=== PATIENT | female | born 1950 | race Caucasian/White ===

== ENCOUNTER 2019-04-20 18:08 | Inpatient (IN) | payer MEDICARE, SELFPAY ==
[2019-04-20] VITALS (45 sets, daily range): BP systolic 106–254; BP diastolic 49–134; PULSE 57–94; RESP 10–28; TEMP 36.7; O2SAT 91–96; BMI 38.8
--- NOTE | 2019-04-20 18:44 | ECG_ITS ---
Measurements Intervals [place] Rate: 65 P: 93 IN: 187 QRS: 11 QRSD: 104 T: 43 QT: 441 QTc: [address] DEPRESSION [0.025+ mV ST DEPRESSION] Compared to ECG 03/10/2019 01:16:40 ST (T wave) deviation now present Sinus bradycardia no longer present T-wave abnormality no longer present Electronically Signed On 04-21-2019 22:14:47 STAND GRINDER by Stephany Saldivar M.D. [id number]
--- NOTE | 2019-04-20 18:53 | ED_ITS ---
Entered by Adilene Flores, acting as scribe for Martha Padilla HPI - General Adult General: Chief complaint: General Medical Stated complaint: high bp Time Seen by Provider: 04/20/19 18:43 Source: patient Mode of arrival: ambulatory Limitations: no limitations History of Present Illness: HPI narrative: 68 yo Female presents to ED with complaint of elevated blood pressure. Pt states that she has a headache and checked her blood pressure and had a systolic pressure of 220 so she came to the ER to be checked out. Pt reports to the nurse that she has been out of her clonidine for a few days. MD complaint: Elevated blood pressure Onset (ago): day(s) Location: head Radiation: non-radiation Severity scale (1-10): 5 Quality: constant Pain Consistency: constant Relieving factors: none Exacerbating factors: none Associated symptoms: Reports headache(s); Deny chest pain, confusion, diaphoresis, dyspnea, malaise, nausea, rash, palpitations, syncope or vomiting Review of Systems General: Reports: other (negative unless marked) Const: Denies: fever, chills, body aches, fatigue, malaise or diaphoresis Eyes: Denies: change in vision or blurry vision ENMT: Denies: throat pain, painful swallowing, hoarseness, ear pain, ear discharge, Change in hearing or nasal discharge Card: Denies: chest pain, palpitations, irregular heart rhythm, syncope, pre- syncope, shortness of breath on exertion or shortness of breath when lying down Resp: Denies: shortness of breath, productive cough, non-productive cough, wheezing, coughing up blood or chest congestion GI: Denies: abdominal pain, nausea, vomiting, vomiting blood, coffee grounds in vomit, diarrhea, constipation, cramping, blood in stool or black tarry stool : Denies: flank pain, painful urination, urinary frequency, urinary urgency, decreased urine ouput, urinary incontinence or blood in urine Musc: Denies: neck pain, back pain, extremity pain, extremity swelling, joint pain, joint swelling, joint warmth or joint stiffness Skin/Breast: Denies: rash, skin tenderness or yellow skin Neuro: Reports: headache; Denies: numbness in extremities, weakness in extremities, changes in sensation, lack of coordination, difficulty walking, dizziness, vertigo or confusion Endo: Denies: excessive thirst, tired all the time, cold intolerance, excessive sweating, flushing or hot flashes Casa/Lymph: Denies: easy bruising, easy bleeding, petechiae or enlarged lymph nodes All/Imm: Denies: hives, throat swelling, tongue swelling, facial swelling or acute wheezing PFSH ED PFSH: Statuses (acute, chronic, etc) shown below reflect problem list status as previously entered and may not be historically accurate Social History Smoking and tobacco status: former smoker Physical Exam Const: COMMON NORMALS: no apparent distress, oriented x3, no limitations, healthy appearing and well nourished EXAM LIMITATIONS: no altered mental status GENERAL APPEARANCE: cooperative, well kempt and well developed ORIENTATION/CONSCIOUSNESS: Yes awake HENMT: COMMON NORMALS: normocephalic, head/scalp atraumatic, hearing grossly normal bilaterally, external ears normal, EAC's normal, external nose normal and moist oral mucous membranes HEAD & SCALP: normal to inspection, normocephalic and atraumatic FACE & SINUS: normal facial exam and face symmetric NOSE: external nose normal and nares normal EXTERNAL EAR: Yes external ears normal EXTERNAL AUDITORY CANAL: EAC's normal MOUTH: oral and palatal mucosa normal and tongue normal Eye: COMMON NORMALS: PERRL, EOMs intact bilaterally, conjunctivae normal and no scleral icterus GENERAL EYE: normal appearance of both eyes and normal light reflex CONJUNCTIVA: Yes conjunctivae normal SCLERA: sclerae normal CORNEA: Yes corneas normal PUPIL: Yes PERRL DIRECT OPHTHALMOSCOPY: Yes normal light reflex Neck/C-Spine: COMMON NORMALS: full ROM, no lymphadenopathy, supple, no meningeal signs and no JVD GENERAL: Yes normal visual inspection and Yes trachea midline CERVICAL SPINE: Yes cervical ROM normal Chest: COMMONS NORMALS: inspection of chest normal and palpation of chest normal Resp: COMMON NORMALS: normal respiratory effort, no retractions, no use of accessory muscles and clear to auscultation bilaterally EFFORT & INSPECTION: Yes able to speak in complete sentences AUSCULTATION: clear to auscultation bilaterally Cardio: COMMON NORMALS: no JVD, regular rate, regular rhythm, S1 normal heart sound, S2 normal heart sound, no gallops, no clicks, no murmurs and no rub JUGULAR VENOUS DISTENTION: no JVD RATE: regular rate RHYTHM: regular rhythm HEART SOUNDS: S1 normal and S2 normal GI: COMMON NORMALS: soft to palpation, non-tender, no hepatosplenomegaly and no masses INSPECTION: Yes normal to inspection PALPATION: Yes soft and Yes no hepatosplenomegaly : COMMON NORMALS: Yes no CVA tenderness BLADDER/KIDNEY EXAM: Yes no CVA tenderness Back/Pelvis: COMMON NORMALS: no CVA tenderness, thoracic and lumbar spine normal to inspection, no thoracic nor lumbar tenderness and thoraco-lumbar ROM normal Extremity: COMMON NORMALS: normal to inspection, full ROM, normal capillary refill, no joint enlargement, no clubbing, cyanosis or edema and no calf tenderness Neuro: COMMON NORMALS: oriented x3, CN's II-XII intact bilaterally, moves all extremities, no focal motor deficits and no sensory deficits noted MENINGEAL SIGNS: Yes no meningeal signs Psych: COMMON NORMALS: mental status grossly normal, thought process normal, cooperative, affect normal, speech normal and activity/motor behavior normal APPEARANCE: Yes well kempt SPEECH: Yes normal speech THOUGHT PROCESS: normal thought process Skin: COMMON NORMALS: no rashes or lesions noted, skin turgor normal, no jaundice, no petechiae and no mottling GENERAL SKIN EXAM: no rashes or lesions noted and turgor normal Course Vital Signs: Vital signs: Vital Signs Temperature 98.1 F 04/20/19 18:34 Pulse Rate 62 04/20/19 22:40 Respiratory Rate 19 H 04/20/19 22:40 Blood Pressure 144/61 04/20/19 22:40 Pulse Oximetry 92 04/20/19 22:40 MDM - General Adult MDM Narrative: Medical decision making narrative: The patient presents with hypertensive emergency. Her blood pressure has gotten as high as 264 systolic and as high as 170 diastolic. Currently we are maxed out on a Cardene drip. The patient is going to be admitted to the ICU. Dr. Travis is consulting Dr. Roman and he is advised me if we do not have fenoldopam, and we do not, he recommends giving clonidine 0.2 mg every 6 hours. Patient is asymptomatic at this time her headache is better. She has no chest pain or shortness of breath. Lab Data: Attestation: I reviewed the patient's lab results. Labs: Lab Results 04/20/19 04/20/19 04/20/19 Range/Units 18:05 18:05 18:05 WBC 9.8 (4.0-10.0) 10^3/ uL RBC 5.21 (4.1-5.3) 10^6/u L Hgb 11.9 (11.5-15.3) g/dL Hct 40.2 (37.0-47.0) % MCV 77.2 L (81-99) fL MCH 22.8 L (28.0-34.0) pg MCHC 29.6 L (30.0-36.0) g/dL RDW 22.0 H (12.1-15.1) % Plt Count 252 (130-400) 10^3/c mm MPV 10.4 (7.4-10.4) fL Neut % (Auto) 59.8 % Lymph % (Auto) 25.1 % Greenlee % (Auto) 6.5 % Eos % (Auto) 7.3 % Baso % (Auto) 0.6 % Neut # (Auto) 5.9 (1.8-7.7) 10^3/u L Lymph # (Auto) 2.5 (0.8-4.8) 10^3/u L Greenlee # (Auto) 0.6 (0.2-0.9) 10^3/u L Eos # (Auto) 0.7 (0.0-0.8) 10^3/u L Baso # (Auto) 0.1 (0.0-0.1) 10^3/u L Nucleated RBC % (a uto) 0 % Nucleated RBCs # 0.0 /100WBC Sodium 136 (136-145) mmol/L Potassium 4.1 (3.5-5.1) mmol/L Chloride 96 L (98-107) mmol/L Carbon Dioxide 27 (22-29) mmol/L Anion Gap 17.1 (5-19) BUN 13 (8-23) mg/dL Creatinine 0.8 (0.5-0.9) mg/dL GFR Calculation 71.1 L (90-130) mL/min Glucose 200 H (65-115) mg/dL Calcium 9.9 (8.5-10.5) mg/dL Magnesium 1.8 (1.7-2.3) mg/dL Total Bilirubin 0.3 (0.15-1.2) mg/dL AST 20 (0-32) U/L ALT 22 (0-33) U/L Alkaline Phosphata se 109 H (35-105) IU/L Troponin T Baselin e 14 H (0-10) ng/mL NT-Pro-B Natriuret Pep 339 H (0-125) pg/mL Total Protein 7.7 (6.6-8.7) g/dL Albumin 4.3 (3.5-5.2) g/dL Globulin 3.4 (1.3-4.6) g/dL Imaging Data^: CT Head: Radiologist's impression: [place] [address] CT Scan Report Signed Patient: Marifer Loza #: [id number] : 1950Acct#:[id number] Age/Sex: 68 / FADM Date: 04/20/19 Loc: ERRoom/Bed: Attending Dr: Ordering Provider/Ordering MD: Martha Padilla DO Date of Service: 04/20/19 Procedure(s): CT head wo con* [id number] Accession Number(s): [id number] Report Number: [id number] PROCEDURE INFORMATION: Exam: CT Head Without Contrast Exam date and time: 04/20/2019 7:21 PM Age: 68 years old Clinical indication: Pain; Additional info: Colón/ams TECHNIQUE: Imaging protocol: Computed tomography of the head without contrast. Total DLP: 885.23 mGy-cm Radiation optimization: All CT scans at this facility use at least one of these dose optimization techniques: automated exposure control; mA and/or kV adjustment per patient size (includes targeted exams where dose is matched to clinical indication); or iterative reconstruction. COMPARISON: No relevant prior studies available. FINDINGS: Brain: No CT evidence for acute ischemia, mass or hemorrhage. Ventricles: Normal. No ventriculomegaly. Bones/joints: Unremarkable. No acute fracture. Sinuses: Visualized sinuses are unremarkable. No fluid levels. Mastoid air cells: Small fluid in both mastoid sinuses. However the middle ear spaces are clear. Soft tissues: Unremarkable. CT/CT head wo con* [id number] IMPRESSION: 1. No acute intracranial findings. 2. Fluid in the mastoid sinuses Radiation Dose CTDIVOL = (mGy): DLP = 885.23 (mGy-cm) Dictated By:Pablo Ferrer MD Signed By:Pablo Ferrerigned Date/Time:04/20/192023 DD/ 21 EKG Data^: EKG 1: Attestation: I personally reviewed and interpreted this EKG as follows: EKG interpretation date: 04/20/19 EKG interpretation time: 19:02 Interpretation: Normal sinus rhythm at 76 beats a minute, normal axis, nonspecific ST-T wave changes. Computer generated interpretation: Head CT 04/20/19 19:01 IMPRESSION: 1. No acute intracranial findings. 2. Fluid in the mastoid sinuses Radiation Dose CTDIVOL = (mGy): DLP = 885.23 (mGy-cm) EKG 2: EKG interpretation date: 04/20/19 EKG interpretation time: 20:54 Interpretation: Normal sinus rhythm at 65 beats a minute, nonspecific ST-T wave changes, no acute findings, unchanged from previous. Computer generated interpretation: Head CT 04/20/19 19:01 IMPRESSION: 1. No acute intracranial findings. 2. Fluid in the mastoid sinuses Radiation Dose CTDIVOL = (mGy): DLP = 885.23 (mGy-cm) Discharge Plan Discharge Patient Disposition: Admitted As Inpatient Admit Provider: Garry Travis Clinical Impression: Hypertensive emergency Condition: Stable Discharge Date/Time: 04/20/19 21:40 Coding Level of Care Code ED Chip Bin Conveyor Tender for Chg Fwd Exam Problem Focused The documentation recorded by the Sandra joyner Carmen, accurately reflects the service I personally performed and the decisions made by Randy lara Eli N Apr 20, 2019 18:08
[2019-04-20] MEDS: nitroglycerin 0.4 mg sublingual Tablet SUBLINGUAL (18:55)
--- NOTE | 2019-04-20 19:01 | CTR_ITS ---
PROCEDURE INFORMATION: Exam: CT Head Without Contrast Exam date and time: 04/20/2019 7:21 PM Age: 68 years old Clinical indication: Pain; Additional info: Colón/ams TECHNIQUE: Imaging protocol: Computed tomography of the head without contrast. Total DLP: 885.23 mGy-cm Radiation optimization: All CT scans at this facility use at least one of these dose optimization techniques: automated exposure control; mA and/or kV adjustment per patient size (includes targeted exams where dose is matched to clinical indication); or iterative reconstruction. COMPARISON: No relevant prior studies available. FINDINGS: Brain: No CT evidence for acute ischemia, mass or hemorrhage. Ventricles: Normal. No ventriculomegaly. Bones/joints: Unremarkable. No acute fracture. Sinuses: Visualized sinuses are unremarkable. No fluid levels. Mastoid air cells: Small fluid in both mastoid sinuses. However the middle ear spaces are clear. Soft tissues: Unremarkable. CT/CT head wo con* [id number] IMPRESSION: 1. No acute intracranial findings. 2. Fluid in the mastoid sinuses Radiation Dose CTDIVOL = (mGy): DLP = 885.23 (mGy-cm)
[2019-04-20] MEDS: labetalol 5 mg/mL SDV 20mL 20 MG IVP (19:09)
[2019-04-20 19:17] LABS: Basophils # 0.1 10^3/uL (0.0-0.1); Basophils % 0.6 %; Eosinophils # 0.7 10^3/uL (0.0-0.8); Eosinophils % 7.3 %; Hematocrit 40.2 % (37.0-47.0); Hemoglobin 11.9 g/dL (11.5-15.3); Lymphocytes # 2.5 10^3/uL (0.8-4.8); Lymphocytes % 25.1 %; Mean Corpuscular HGB Conc 29.6 g/dL (30.0-36.0); Mean Corpuscular Hemoglobin 22.8 pg (28.0-34.0); Mean Corpuscular Volume 77.2 fL (81-99); Mean Platelet Volume 10.4 fL (7.4-10.4); Monocytes # 0.6 10^3/uL (0.2-0.9); Monocytes % 6.5 %; Neutrophils # 5.9 10^3/uL (1.8-7.7); Neutrophils % 59.8 %; Nucleated Red Blood Cells % 0 %; Platelet Count 252 10^3/cmm (130-400); Red Blood Count 5.21 10^6/uL (4.1-5.3); White Blood Count 9.8 10^3/uL (4.0-10.0)
[2019-04-20 19:47] LABS: Troponin(5th) Baseline 14 ng/mL (0-10)
--- NOTE | 2019-04-20 19:52 | PC.NURSE ---
increased cardene drip to 7.5 ml/hr
[2019-04-20 19:55] LABS: Alanine Aminotransferase 22 U/L (0-33); Albumin Level 4.3 g/dL (3.5-5.2); Alkaline Phosphatase 109 IU/L (35-105); Anion Gap 17.1 (5-19); Aspartate Amino Transferase 20 U/L (0-32); Blood Urea Nitrogen 13 mg/dL (8-23); Calcium 9.9 mg/dL (8.5-10.5); Carbon Dioxide 27 mmol/L (22-29); Chloride 96 mmol/L (98-107); Globulin 3.4 g/dL (1.3-4.6); Glomerular Filtration Rate 71.1 mL/min (90-130); Glucose 200 mg/dL (65-115); Magnesium 1.8 mg/dL (1.7-2.3); NT Pro B Type Natriuretic Pept 339 pg/mL (0-125); Potassium 4.1 mmol/L (3.5-5.1); Sodium 136 mmol/L (136-145); Total Bilirubin 0.3 mg/dL (0.15-1.2); Total Protein 7.7 g/dL (6.6-8.7)
--- NOTE | 2019-04-20 20:25 | PC.NURSE ---
increased cardene to 10mg/hr at this time.
--- NOTE | 2019-04-20 20:41 | PC.NURSE ---
titrated to Cardene to 12.5mg/hr per verbal order from Dr. Padilla
--- NOTE | 2019-04-20 20:44 | ECG_ITS ---
Measurements Intervals [place] Rate: 76 P: 101 [place]: 191 QRS: 12 QRSD: 106 T: 68 QT: 376 QTc: [address] & T-WAVE ABNORMALITY Compared to ECG 03/10/2019 01:16:40 Sinus bradycardia no longer present T-wave abnormality still present Electronically Signed On 04-21-2019 22:18:00 STEP DOWN SPECIALIST by Stephany Saldivar M.D. [id number]
[2019-04-20] MEDS: cloNIDine 0.1 mg Tablet 0.2 MG PO (21:04)
[2019-04-20 21:12] LABS: Troponin 5 2HR 18.06 ng/mL (0-10); Troponin 5 2HR Delta 4.06 ABS# (0-10)
--- NOTE | 2019-04-20 21:27 | PC.NURSE ---
attempted to call report no one answered
--- NOTE | 2019-04-20 23:23 | PC.NURSE ---
2200 dr dillon at bedside orders to stop fluid , continue cardene, tylenol prn, cpap, and xanax placed. kem de la cruz.
[2019-04-20] MEDS: acetaminophen 500 mg Tablet 1000 MG PO (23:30)
--- NOTE | 2019-04-20 23:30 | PM.HP ---
Providers/Chief Complaint Admitting Physician: Garry Travis MD Primary Care Provider: Garry Travis MD Chief Complaint: high bp History of Present Illness Marifer Loza is a 68 year old female who presents to the emergency room due to elevated blood pressure. She ran out of her clonidine approximately 4 days ago. Blood pressures been increasingly getting high since then. She has been struggling with high blood pressure for the past couple of months. She is had her medications escalated significantly. Even with the clonidine her blood pressures have been 160s and 170s at home. It got over 200 which prompted her to come in. She has been having some significant headaches associated with it. No chest pain or shortness of breath. When she got to the ER she was found to have blood pressures in the 270s systolic. She was placed on a Cardene drip with persistent elevated pressures. Clonidine was started and her blood pressure subsequently improved. Patient is currently in the ICU. Current medications Zoloft 200 mg daily Amaryl 4 mg 1 tablet twice a day Metformin thousand milligrams 1 tablet twice a day Atenolol 50 mg 1 tablet twice a day Enalapril/hydrochlorothiazide 10/25 1 tablet twice a day Lipitor 40 mg 1 tablet once a day Alprazolam 0.25 mg 1 tablet at night Detrol 2 mg 1 tablet twice a day Past medical history: Hypertension, hyperlipidemia, seasonal allergies, incontinence. Angiogram in 2004 showed very minimal plaques. History of COPD, obstructive sleep apnea, diabetes mellitus type 2. Past surgical history gallbladder, lap band in July 2008 Family history, Mom dad of coronary disease age 44. Maternal aunt had breast cancer. Dad at age 89 he had coronary disease and peripheral vascular disease and diabetes. Social history She goes by Marifer. She lives in [place]. Her recently. She works for the [employer] in [place]. 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 Quit smoking in 2000. [id number] smoking history prior to this. No alcohol use. Review of Systems Narrative: General: No chronic fevers or chronic weight changes. HEENT: No acute changes in vision. No acute hearing loss. No new difficulty swallowing. Heart: No new chest pain or recent issues with coronary disease. Lungs: No history of TB. No chronic lung disease. GI: No history of GI bleeding. No hepatitis. No chronic nausea or vomitting. Renal: No dysuria or frequency. No hematuria Neuro: No acute neurological changes or deficits. Musculoskeletal: No acutely worsening joint pain or swelling. Medications/Allergies Home Medications Medication Instructions Recorded Confirmed Last Taken Type albuterol sulfate 04/20/19 Unknown History carvedilol 04/20/19 04/20/19 Unknown History Allergies Allergy/AdvReac Type Severity Reaction Status Date / Time codeine Allergy ADR-Confusi Verified 04/20/19 18:43 on PFSH Acute PFSH: Statuses (acute, chronic, etc) shown below reflect problem list status as previously entered and may not be historically accurate Social History Smoking and tobacco status: former smoker Vitals/I&O/Wt Last Vital Signs Temp 98.1 F 04/20/19 18:34 Pulse 62 04/20/19 22:40 Resp 19 H 04/20/19 22:40 BP 144/61 04/20/19 22:40 Pulse Ox 92 04/20/19 22:40 04/20/19 04/20/19 04/21/19 14:59 22:59 06:59 Intake Total 750.000 / 952.500 202.5 / 952.500 Balance 750.000 / 952.500 202.5 / 952.500 Weight last 48 hrs Weight 263 lb Physical Exam Narrative: EXAM NARRATIVE: General: No acute distress, Alert. Well nourished. HEENT: PERRLA, EOMI. vision grossly normal. Throat clear. Neck: supple, no adenopathy. Heart: Regular rate and rhythm. No murmurs, rubs or gallops. Normal capillary refill. Lungs: Clear to auscultation. No wheezes, rhonchi or rales. Abdomen: Positive bowel sounds. Non-tender, non-distended. No hepatosplenomegaly. No gaurding. Extremities: No clubbing, cyanosis, or edema. Negative Gris's. Data : 04/21/19 04:59 04/21/19 04:59 A&P Assessment and plan (1) Hypertensive emergency: This is obviously her primary concern since his hospitalization. Patient was being scheduled for an outpatient CTA of her renal arteries. We will proceed with this in the morning. She seems to be responding well to clonidine at this time. We will resume her home medications in the morning. Cardiology has been consulted due to the difficulty of controlling her blood pressures. Appreciate their input. Status: Acute Code(s): I16.1 - Hypertensive emergency (2) Diabetes mellitus type 2 in nonobese: Status: Acute Code(s): E11.9 - Type 2 diabetes mellitus without complications (3) COPD (chronic obstructive pulmonary disease): Status: Acute Code(s): J44.9 - Chronic obstructive pulmonary disease, unspecified (4) Hyperlipidemia: Status: Acute Code(s): E78.5 - Hyperlipidemia, unspecified (5) Obstructive sleep apnea: Status: Acute Code(s): G47.33 - Obstructive sleep apnea (adult) (pediatric) Attestations Medical Necessity Statement*: This is a 68-year-old female with hypertensive emergency requiring continued inpatient monitoring and treatment. Coding Level of Care Code Acute Wool Presser for [facility] Fwd Diagnoses Hypertensive emergency I16.1 Diabetes mellitus type 2 in nonobese E11.9 COPD (chronic obstructive pulmonary disease) J44.9 Hyperlipidemia E78.5 Obstructive sleep apnea G47.33
--- NOTE | 2019-04-20 23:38 | PC.NURSE ---
tylenol given for back pain per may. kem de la cruz.
[2019-04-21] VITALS (132 sets, daily range): BP systolic 114–196; BP diastolic 38–122; PULSE 53–79; RESP 12–29; TEMP 36.2–36.9; O2SAT 88–95
--- NOTE | 2019-04-21 00:44 | ECG_ITS ---
Measurements Intervals [place] Rate: 58 P: 80 [place]: 185 QRS: 44 QRSD: 104 T: 36 QT: 475 QTc: 467 SINUS BRADYCARDIA NONSPECIFIC T-WAVE ABNORMALITY PROLONGED QT INTERVAL Compared to ECG 03/10/2019 01:16:40 Prolonged QT interval now present T-wave abnormality still present Electronically Signed On 04-21-2019 22:18:23 WOOD CARVER by Stephany Saldivar M.D. [id number]
[2019-04-21 01:14] LABS: Troponin 5 6HR 16.01 ng/L (0-10); Troponin 5 6HR Delta 2.01 ng/L (0-12)
[2019-04-21 05:18] LABS: Basophils # 0.1 10^3/uL (0.0-0.1); Basophils % 0.9 %; Eosinophils # 0.5 10^3/uL (0.0-0.8); Eosinophils % 6.6 %; Hemoglobin 10.9 g/dL (11.5-15.3); Lymphocytes # 2.1 10^3/uL (0.8-4.8); Lymphocytes % 25.9 %; Mean Corpuscular HGB Conc 29.5 g/dL (30.0-36.0); Mean Corpuscular Hemoglobin 22.6 pg (28.0-34.0); Mean Corpuscular Volume 76.8 fL (81-99); Mean Platelet Volume 10.2 fL (7.4-10.4); Monocytes # 0.6 10^3/uL (0.2-0.9); Monocytes % 7.1 %; Neutrophils # 4.7 10^3/uL (1.8-7.7); Neutrophils % 59.2 %; Nucleated Red Blood Cells % 0 %; Platelet Count 218 10^3/cmm (130-400); Red Blood Count 4.82 10^6/uL (4.1-5.3); Red Cell Distribution Width 21.9 % (12.1-15.1); White Blood Count 7.9 10^3/uL (4.0-10.0)
[2019-04-21] MEDS: cloNIDine 0.1 mg Tablet 0.2 MG PO (05:21)
[2019-04-21 05:29] LABS: Anion Gap 15.7 (5-19); Blood Urea Nitrogen 14 mg/dL (8-23); Calcium 9.1 mg/dL (8.5-10.5); Carbon Dioxide 29 mmol/L (22-29); Chloride 98 mmol/L (98-107); Glomerular Filtration Rate 99.1 mL/min (90-130); Glucose 190 mg/dL (65-115); Osmolality Calculated 289 mOsm/kg (285-295); Potassium 3.7 mmol/L (3.5-5.1); Sodium 139 mmol/L (136-145)
--- NOTE | 2019-04-21 06:18 | CT_ITS ---
WS: [id number] CT ANGIOGRAPHY ABDOMEN AORTA HISTORY: Renal artery CTA for malignant Hypertension TECHNIQUE: CT angiogram is performed during IV injection. Reformation images reviewed. All CT scans a [facility] use at least one of these dose optimization techniques: automated exposure co ntrol; mA and/or kV adjustment per patient size (includes targeted exams where dose is matched to cli nical indication); or iterative reconstruction. CONTRAST: Omnipaque 350; 95 mL IV. DLP: 1104.33 mGy.cm COMPARISON: None available. Lung bases are clear. Prior gastric banding procedure. Small hiatal hernia. Mild hepatic steatosis and hepatomegaly. Liver measures greater than 17 cm in length. Prior cholecyst ectomy. Normal pancreas and adrenal glands. Both kidneys are enhancing normally. No atrophy, calcifications or obstruction. Both ureters are norm al caliber. Abdominal aorta: Moderate atherosclerosis throughout the aorta. There is calcified plaque and intimal thickening. Distal aorta is narrowed measuring 7 mm in diameter. Moderate calcified plaque continues into the proximal common iliac arteries. Moderate amount of plaque at the origins of the renal arteries. Approximately 26% stenosis at the ty[place] gin of the LEFT renal artery. Moderate amount of plaque at the origin of the RIGHT renal artery but n o significant stenosis. There is a moderate stenosis at the origin of the SMA, stenosis greater than 80%. There is an additio nal focal calcification approximately 5 cm distal to the origin of approximately 50%. Moderate degenerative disc disease at L5-S1. CT/CT angio abdomen 28016 IMPRESSION: 1. Moderate stenosis distal abdominal aorta with a maximum diameter 7 mm. 2. No significant renal artery stenosis. Calcified plaque at the origins witho ut narrowing. 3. High-grade stenosis origin of the SMA and an additional moderate stenosis a bout 5 cm from the origin. 4. Prior cholecystectomy and LEFT gastric banding. 5. Hepatomegaly and hepatic steatosis.
--- NOTE | 2019-04-21 09:04 | P.CONIM_ITS ---
Providers/Reason For Consult Consulting Physican/Specialty*: Cardiology Reason for Consult*: Hypertensive urgency Attending Physician: Garry Travis MD Primary Care Provider: Garry Travis MD History of Present Illness History of Present Illness Marifer Loza is a 68 year old female Past medical history significant for Malignant hypertension COPD, obstructive sleep apnea, Diabetes mellitus Presented with Systolic blood pressure on 220 With headaches. I was consulted by Dr. Travis and our ER physician Dr. Bonilla to assist in her care. Patient apparently ran out of clonidine as well and was noticing escalation of the blood pressure. She was given labetalol he did not bring her blood pressure down. She was started on Cardene, Since fenoldapam was not available for decided to add back clonidine in order to control her blood pressure. This morning I saw the patient in ICU she was on Cardene drip and her blood pressure was in the range of 140s to 140 systolic. Currently she denies chest pain because in any part of the body PND orthopnea. Review of Systems General: Reports: other (negative unless marked) Narrative: General: No chronic fevers or chronic weight changes. HEENT: No acute changes in vision. No acute hearing loss. No new difficulty swallowing. Heart: No new chest pain or recent issues with coronary disease. Lungs: No history of TB. No chronic lung disease. GI: No history of GI bleeding. No hepatitis. No chronic nausea or vomitting. Renal: No dysuria or frequency. No hematuria Neuro: No acute neurological changes or deficits. Musculoskeletal: No acutely worsening joint pain or swelling. Const: Denies: fever, chills, body aches, fatigue, malaise or diaphoresis Eyes: Denies: change in vision or blurry vision ENMT: Denies: throat pain, painful swallowing, hoarseness, ear pain, ear discharge, change in hearing or nasal discharge Card: Denies: chest pain, palpitations, irregular heart rhythm, syncope, pre- syncope, shortness of breath on exertion or shortness of breath when lying down Resp: Denies: shortness of breath, productive cough, non-productive cough, wheezing, coughing up blood or chest congestion GI: Denies: abdominal pain, nausea, vomiting, vomiting blood, coffee grounds in vomit, diarrhea, constipation, cramping, blood in stool or black tarry stool : Denies: flank pain, painful urination, urinary frequency, urinary urgency, decreased urine ouput, urinary incontinence or blood in urine Musc: Denies: neck pain, back pain, extremity pain, extremity swelling, joint pain, joint swelling, joint warmth or joint stiffness Skin/Breast: Denies: rash, skin tenderness or yellow skin Neuro: Reports: headache; Denies: numbness in extremities, weakness in extremities, changes in sensation, lack of coordination, difficulty walking, dizziness, vertigo or confusion Endo: Denies: excessive thirst, tired all the time, cold intolerance, excessive sweating, flushing or hot flashes Casa/Lymph: Denies: easy bruising, easy bleeding, petechiae or enlarged lymph nodes All/Imm: Denies: hives, throat swelling, tongue swelling, facial swelling or acute wheezing Meds/Allergies Home Medications and Allergies Home Medications Medication Instructions Recorded Confirmed Type albuterol sulfate 04/20/19 History carvedilol 04/20/19 04/20/19 History alprazolam PO BEDTIME 04/21/19 History atorvastatin DAILY 04/21/19 History carvedilol 25 mg PO BID 04/21/19 04/21/19 History enalapril maleate 10 BID 04/21/19 History fluconazole mg 04/21/19 History fluticasone propion-salmeterol INHALATION 04/21/19 04/21/19 History glimepiride mg 04/21/19 04/21/19 History hydrochlorothiazide 04/21/19 04/21/19 History isosorbide mononitrate mg PO 04/21/19 04/21/19 History lisinopril 04/21/19 04/21/19 History nitroglycerin mg 04/21/19 04/21/19 History omeprazole 04/21/19 04/21/19 History sertraline mg 04/21/19 04/21/19 History Allergies Allergy/AdvReac Type Severity Reaction Status Date / Time codeine Allergy ADR-Confusi Verified 04/20/19 18:43 on Current Medications Current Medications Generic Name Dose Route Start Last Admin Trade Name Freq PRN Reason Stop Dose Admin Acetaminophen 1,000 mg 04/20/19 23:10 04/20/19 23:30 Tylenol PO 1,000 mg Q6H PRN Administration MILD PAIN OR INCREASE TEMP Clonidine HCl 0.2 mg 04/20/19 22:15 04/21/19 05:21 Catapres PO 0.2 mg Q6H BRIELLE Administration Nicardipine HCl 25 mg/ Sodium 250 mls @ 0 mls/hr 04/20/19 19:00 04/21/19 00:42 Chloride IV 4 mg/hr .Q0M BRIELLE 40 mls/hr Administration Protocol Per Protocol PFSH Acute PFSH: Statuses (acute, chronic, etc) shown below reflect problem list status as previously entered and may not be historically accurate Medical History (Updated 04/21/19 @ 20:02 by Stephany Saldivar MD) COPD (chronic obstructive pulmonary disease) (Acute) Diabetes mellitus type 2 in nonobese (Acute) Hyperlipidemia (Acute) Obstructive sleep apnea (Acute) Social History Smoking and tobacco status: former smoker Vitals/I&O/Wt Last Vital Signs Temp 97.1 F L 04/21/19 02:55 Pulse 62 04/21/19 07:46 Resp 16 04/21/19 06:25 BP 158/82 04/21/19 06:25 Pulse Ox 93 04/21/19 07:46 04/20/19 04/21/19 04/21/19 22:59 06:59 14:59 Intake Total 750.000 / 750.000 250.0 / 1000.000 240 / 240 Balance 750.000 / 750.000 250.0 / 1000.000 240 / 240 Weight last 48 hrs Weight 263 lb Physical Exam Narrative: EXAM NARRATIVE: GENERAL: Patient is alert, awake and oriented x3. NECK: No jugular vein distension. HEENT: No cyanosis. No icterus. No pallor. HEART: Regular S1 and S2. No murmur, rub or gallop. LUNGS: Clear to auscultate bilaterally. ABDOMEN: Soft, nontender and nondistended. Positive bowel sounds. No guarding, rebound or tenderness. CENTRAL NERVOUS SYSTEM: Grossly nonfocal. EXTREMITIES: Lower extremities without edema bilaterally. A&P Assessment and plan (1) Hypertensive urgency, malignant: Patient has chronic history of malignant uncontrolled hypertension, Most likely she presented this time secondary to rebound episode . She was started back on clonidine I will switch her from propranolol to carvedilol and lisinopril to losartan. We will titrate the medicine. Secondary causes for hypertension will be investigated such as renal artery stenosis. Uncontrolled obstructive sleep apnea could also be a contributing factor to it Status: Acute Code(s): I16.0 - Hypertensive urgency (2) Hyperlipidemia: Continues to Status: Acute Code(s): E78.5 - Hyperlipidemia, unspecified (3) Obstructive sleep apnea: May need to be investigated for titration Status: Acute Code(s): G47.33 - Obstructive sleep apnea (adult) (pediatric) (4) Hypertensive emergency: Status: Acute Code(s): I16.1 - Hypertensive emergency Consult Attestations Medical Necessity Statement: Requires continuation hospitalization for above defined care. Coding Level of Care Code Acute Auth Specialist for Chg Fwd History Expanded Problem Focused Exam Expanded Problem Focused Medical Decision Making Moderate Complexity Diagnoses Hypertensive urgency, malignant I16.0 Hyperlipidemia E78.5 Obstructive sleep apnea G47.33 Hypertensive emergency I16.1
--- NOTE | 2019-04-21 09:15 | PC.NURSE ---
Dr Saldivar assessing pt. Making BP med changes.
--- NOTE | 2019-04-21 10:10 | PC.NURSE ---
Sample Tester called to ask when Dr Saldivar is expected to be free. Informed Christopher of BP med changes and pharmacy flagging meds. Clarification needed prior to administering meds. Christopher stated Dr Saldivar should be finished soon.
--- NOTE | 2019-04-21 10:30 | PC.NURSE ---
Pt pleasantly refuses Zoloft. States med makes her sleepy and she will take it this evening. Will notify physician.
--- NOTE | 2019-04-21 10:32 | PC.NURSE ---
Addendum entered by Carolina Cameron RN 04/21/19 10:34: Note timed for 0950. Original Note: Pharmacy flagged meds. Called Dr Saldivar's cell to inform and clarify orders. RT answered. Will hold meds until he returns call. Advised 30-60 minutes.
[2019-04-21] MEDS: losartan 50 mg Tablet PO ×2 (11:03→17:23)
[2019-04-21] MEDS: carvedilol 6.25 mg Tablet PO ×2 (11:04→17:23)
[2019-04-21] MEDS: iohexol 350 mg/mL 100 mL Btl 95 ML IV (11:43)
--- NOTE | 2019-04-21 12:07 | PC.NURSE ---
Cardine gtt off per order.
--- NOTE | 2019-04-21 12:13 | PC.NURSE ---
Pt c/o itching immediately following CT contrast. Requested Benadryl. Dr Travis phoned for an update immediately upon our return to ICU. Ordered Benadryl. In the ten minutes it took for pharmacy to load and retrieve med, pt stated itching had relieved and no longer needed med. Med wasted in Pyxis.
--- NOTE | 2019-04-21 14:32 | P.PN_ITS ---
Subjective Subjective: Interval history: Patient seems to be doing quite a bit better. She had some medication adjustments done by Dr. Roman. Blood pressures been down down in the 130s however she spikes up to the 170s when she gets up. She has no chest pain. No fevers or chills. Still some headache but this seems to be improving some. Vitals/I&O/Wt Last Vital Signs Temp 97.1 F L 04/21/19 02:55 Pulse 62 04/21/19 07:46 Resp 16 04/21/19 06:25 BP 170/69 04/21/19 11:03 Pulse Ox 93 04/21/19 07:46 04/20/19 04/21/19 04/21/19 22:59 06:59 14:59 Intake Total 750.000 / 1000.000 250.0 / 1000.000 240 / 240 Balance 750.000 / 1000.000 250.0 / 1000.000 240 / 240 Weight last 48 hrs Weight 263 lb Physical Exam Narrative: EXAM NARRATIVE: General: No acute distress, Alert. Well nourished. Heart: Regular rate and rhythm. No murmurs, rubs or gallops. Normal capillary refill. Lungs: Clear to auscultation. No wheezes, rhonchi or rales. Abdomen: Positive bowel sounds. Non-tender, non-distended. No hepatospl enomegaly. No gaurding. Extremities: No clubbing, cyanosis, or edema. Negative Gris's Data : 04/21/19 04:59 04/21/19 04:59 A&P Assessment and plan (1) Hypertensive emergency: Continue with clonidine and medication adjustments per cardiology. If blood pressures remain stable we will transfer to the floor later today. CTA has been performed but will follow up on results later today. Likely discharge tomorrow. Status: Acute Code(s): I16.1 - Hypertensive emergency (2) Diabetes mellitus type 2 in nonobese: Status: Acute Code(s): E11.9 - Type 2 diabetes mellitus without complications (3) Obstructive sleep apnea: Status: Acute Code(s): G47.33 - Obstructive sleep apnea (adult) (pediatric) Attestations Medical Necessity Statement*: Patient has hypertensive emergency requiring continued inpatient hospitalization and monitoring. Coding Level of Care Code Acute Mortising Machine Operator for [facility] Diagnoses Hypertensive emergency I16.1 Diabetes mellitus type 2 in nonobese E11.9 Obstructive sleep apnea G47.33
--- NOTE | 2019-04-21 16:10 | PC.CHAP ---
Pastoral Care Encounter/Spiritual Assessment Type of Contact [] Declined sex offender treatment professional visit [] Patient/Family/Request visit [] Outpatient visit [] Follow-up visit [] Physician referral [] Code/Alert [x] Routine visit [] Staff referral [] Actively dying [] Patient sleeping [] Family support [] [] Out of room [] Palliative care [] [] Receiving care in room [] Pre-surgical visit [] Trauma [] Long length of stay [] ICU visit [] Other: Relational/Emotional Strength [x] Patient feels connected with others/family/visitors/staff [] Distress [] Loneliness/isolation [] Abandonment Spirituality of Patient [] Person of Luciana [] Attends Denominational of their Luciana [] Believes in Prayer [] Reads Bible or Episcopal materials [] There are Spiritual issues to be addressed Senior Corporate Accountant Interventions x] Prayer [x] Active listening [x] Non-anxious presence [x] Spiritual/emotional support [] Crisis/trauma care [] Spiritual counseling [] Bereavement support [] Provided bereavement packet [] Provided Bible/devotional materials [] Provided toy/stuffed animal, coloring book to patient or family member [] Provided Communion [] Anointing/[place] [] Salvation [x] Completed spiritual assessment [] Other: Impact on Illness or Injury [] Angry [] Fearful [] Anxious [] Often cries [] Exhaustion [] Unable to work [] Unable to attend congregation [] Unable to walk/stand [] Unable to read [] Unable to drive [] Unable to eat/drink [] Unable to sleep [] Unable to be with family [] Patient intubated [x] Other: Retired person with only minimal restrictions as long as BP is controlled properly. Summary Pt's daughter present. Pt expecting to be transferred to [facility] for overnight observation and then go home Wednesday if nothing goes wrong with her BP. Pt stated she feels great. Pt has big smile and had very pleasant conversation with sex offender treatment professional. Senior Corporate Accountant Cristiane Corley Time spent with patient 14 minutes
[2019-04-21] MEDS: cloNIDine 0.1 mg Tablet PO (17:24)
[2019-04-21] MEDS: enoxaparin 40 mg/0.4 mL Syringe SUBCUT (17:24)
[2019-04-21] MEDS: glimepiride 2 mg Tablet 4 MG PO (17:24)
[2019-04-21 19:27] LABS: Glucose Point of Care 193 mg/dL (70-110)
[2019-04-21] MEDS: ALPRAZolam 0.25 mg Tablet PO (20:50)
[2019-04-21] MEDS: sertraline 100 mg Tablet 200 MG PO (20:50)
[2019-04-22] VITALS (89 sets, daily range): BP systolic 126–230; BP diastolic 36–112; PULSE 53–86; RESP 0–21; TEMP 36.6–36.9; O2SAT 87–96
[2019-04-22 05:15] LABS: Alanine Aminotransferase 17 U/L (0-33); Albumin Level 3.6 g/dL (3.5-5.2); Alkaline Phosphatase 85 IU/L (35-105); Anion Gap 13.9 (5-19); Aspartate Amino Transferase 21 U/L (0-32); Blood Urea Nitrogen 19 mg/dL (8-23); Calcium 9.5 mg/dL (8.5-10.5); Carbon Dioxide 30 mmol/L (22-29); Chloride 97 mmol/L (98-107); Globulin 3.2 g/dL (1.3-4.6); Glomerular Filtration Rate 71.1 mL/min (90-130); Glucose 204 mg/dL (65-115); Potassium 3.9 mmol/L (3.5-5.1); Sodium 137 mmol/L (136-145); Total Bilirubin 0.4 mg/dL (0.15-1.2); Total Protein 6.8 g/dL (6.6-8.7)
[2019-04-22 05:16] LABS: Basophils % 0.5 %; Eosinophils # 0.6 10^3/uL (0.0-0.8); Eosinophils % 7.3 %; Hematocrit 36.4 % (37.0-47.0); Hemoglobin 10.8 g/dL (11.5-15.3); Lymphocytes # 1.9 10^3/uL (0.8-4.8); Lymphocytes % 23.9 %; Mean Corpuscular HGB Conc 29.7 g/dL (30.0-36.0); Mean Corpuscular Hemoglobin 23.7 pg (28.0-34.0); Mean Corpuscular Volume 79.8 fL (81-99); Mean Platelet Volume 10.5 fL (7.4-10.4); Monocytes # 0.5 10^3/uL (0.2-0.9); Monocytes % 5.6 %; Neutrophils % 62.3 %; Nucleated Red Blood Cells % 0 %; Platelet Count 199 10^3/cmm (130-400); Red Blood Count 4.56 10^6/uL (4.1-5.3); Red Cell Distribution Width 22.1 % (12.1-15.1); White Blood Count 8.1 10^3/uL (4.0-10.0)
[2019-04-22 08:06] LABS: Glucose Point of Care 222 mg/dL (70-110)
[2019-04-22] MEDS: cloNIDine 0.1 mg Tablet PO ×3 (08:12→21:14)
[2019-04-22] MEDS: carvedilol 6.25 mg Tablet PO ×2 (08:12→18:35)
[2019-04-22] MEDS: losartan 50 mg Tablet PO ×5 (08:12→22:48)
[2019-04-22] MEDS: glimepiride 2 mg Tablet 4 MG PO ×2 (08:12→18:35)
--- NOTE | 2019-04-22 12:44 | PM.PN ---
Subjective Subjective: Interval history: Blood pressure is slowly improving. This morning it is 160 systolic. Overall she is feeling better. Vitals/I&O/Wt Last Vital Signs Temp 98.4 F 04/22/19 08:00 Pulse 65 04/22/19 08:31 Resp 17 04/22/19 08:00 BP 208/112 04/22/19 12:06 Pulse Ox 94 04/22/19 08:31 04/21/19 04/22/19 04/22/19 22:59 06:59 14:59 Intake Total 480 / 1090 240 / 1330 Output Total 750 / 750 300 / 1050 Balance -270 / 340 -60 / 280 Weight last 48 hrs Weight 263 lb Physical Exam Narrative: EXAM NARRATIVE: GENERAL: Patient is alert, awake and oriented x3. NECK: No jugular vein distension. HEENT: No cyanosis. No icterus. No pallor. HEART: Regular S1 and S2. No murmur, rub or gallop. LUNGS: Clear to auscultate bilaterally. ABDOMEN: Soft, nontender and nondistended. Positive bowel sounds. No guarding, rebound or tenderness. CENTRAL NERVOUS SYSTEM: Grossly nonfocal. EXTREMITIES: Lower extremities without edema bilaterally. Data : 04/22/19 04:11 04/22/19 04:11 A&P Assessment and plan (1) Hypertensive urgency, malignant: We will increase losartan 200 mg in the morning and 50 in the night. I will continue Coreg 6.125 and clonidine 0.1 mg twice daily. If blood pressure remains in the range of 150 systolic we will discharge home. She will be following up with Dr. Josefina Travis and my clinic. Status: Acute Code(s): I16.0 - Hypertensive urgency (2) Hyperlipidemia: Continues to Status: Acute Code(s): E78.5 - Hyperlipidemia, unspecified (3) Obstructive sleep apnea: She will be following up with Dr. Travis for sleep titration study Status: Acute Code(s): G47.33 - Obstructive sleep apnea (adult) (pediatric) (4) Hypertensive emergency: Status: Acute Code(s): I16.1 - Hypertensive emergency Attestations Medical Necessity Statement*: Patient require continuation hospitalization for above defined care Coding Level of Care Code Established Pt Acute Administrative Assistant Receptionist for Chg Fwd Patient Type Established History Expanded Problem Focused Exam Expanded Problem Focused Medical Decision Making Moderate Complexity Diagnoses Hypertensive urgency, malignant I16.0 Hyperlipidemia E78.5 Obstructive sleep apnea G47.33 Hypertensive emergency I16.1
[2019-04-22] MEDS: hyDRALAzine 20 mg/mL INJ 1 mL 25 MG IVP (16:25)
[2019-04-22 17:09] LABS: Glucose Point of Care 139 mg/dL (70-110)
[2019-04-22] MEDS: enoxaparin 40 mg/0.4 mL Syringe SUBCUT (18:37)
--- NOTE | 2019-04-22 18:47 | P.PN_ITS ---
Subjective Subjective: Interval history: H&P and hospital course are reviewed. Labs reviewed. CT results appreciated and discussed with patient. Patient continues to have mildly elevated blood pressure. Overnight patient's have blood pressure going up to 200 systolic. Cardene drip was stopped overnight. This morning patient's blood pressure is 170/100 mmHg. Patient denies of having any nausea, vomiting, dizziness, headache. Patient states her blood pressure continues to remain elevated tomorrow she would like to be transferred to [facility] in [place]. Vitals/I&O/Wt Last Vital Signs Temp 97.8 F 04/22/19 14:00 Pulse 63 04/22/19 18:30 Resp 16 04/22/19 18:30 BP 192/98 04/22/19 18:38 Pulse Ox 93 04/22/19 18:30 04/22/19 04/22/19 04/22/19 06:59 14:59 22:59 Intake Total 240 / 1330 220 / 220 Output Total 300 / 1050 Balance -60 / 280 220 / 220 Physical Exam Narrative: EXAM NARRATIVE: General: No acute distress, AO x3 HEENT: PERRLA, pupils bilaterally equal and reactive Chest: Normal vesicular breath sounds, no added sounds, equal good air entry bilaterally CVS: S1-S2 regular, no murmurs, no tachycardia, no gallops, no rubs Abdomen: Soft, nontender, no organomegaly, bowel sounds present Neuro: No focal deficits, no facial deformity, AO x3, power 5/5 in all limbs Data : 04/22/19 04:11 04/22/19 04:11 A&P Assessment and plan (1) Hypertensive urgency, malignant: Status: Acute Code(s): I16.0 - Hypertensive urgency (2) Obstructive sleep apnea: Status: Acute Code(s): G47.33 - Obstructive sleep apnea (adult) (pediatric) (3) Hyperlipidemia: Status: Acute Code(s): E78.5 - Hyperlipidemia, unspecified (4) COPD (chronic obstructive pulmonary disease): Status: Acute Code(s): J44.9 - Chronic obstructive pulmonary disease, unspecified (5) Diabetes mellitus type 2 in nonobese: Status: Acute Code(s): E11.9 - Type 2 diabetes mellitus without complications Additional A&P Information Hypertensive emergency: Patient is off Cardene drip now. Dr. Saldivar's recommendations appreciated. Continue with carvedilol at current dose as patient's heart rate has remained in 60s. We will increase losartan to 100 mg and morning and 50 mg at night as per Dr. Saldivar's recommendation.. Continue with clonidine at 0.1 mg twice daily. If blood pressures remain elevated can change clonidine to 3 times daily. We will continue with hydrochlorothiazide. If patient's blood pressure is controlled by the afternoon can plan for discharge. We will add hydralazine 10 mg IV every 6 hours as needed for elevated blood pressure more than 170 systolic. Type 2 diabetes mellitus: Continue her home medications of glimepiride for type 2 diabetes mellitus. Check fingersticks with meals and at bedtime. Continue with home dose of Zoloft. Full code Lovenox for DVT prophylaxis Cardiac diet Attestations Medical Necessity Statement*: Needs further hospitalization for management of hypertensive urgency Time Spent in Patient Care: Greater than 35 minutes Coding Level of Care Code Acute Prevention Coordinator for [facility] Fwd Diagnoses Hypertensive urgency, malignant I16.0 Obstructive sleep apnea G47.33 Hyperlipidemia E78.5 COPD (chronic obstructive pulmonary disease) J44.9 Diabetes mellitus type 2 in nonobese E11.9
[2019-04-22] MEDS: diphenhydrAMINE 50 mg Capsule PO (21:13)
[2019-04-22] MEDS: ALPRAZolam 0.25 mg Tablet PO (21:13)
[2019-04-22] MEDS: sertraline 100 mg Tablet 200 MG PO (21:14)
[2019-04-23] VITALS (13 sets, daily range): BP systolic 124–201; BP diastolic 65–95; PULSE 54–77; RESP 14–21; TEMP 36.4–36.7; O2SAT 93–98
[2019-04-23] MEDS: glimepiride 2 mg Tablet 4 MG PO (08:38)
[2019-04-23] MEDS: hydroCHLOROthiazide 25 mg Tablet PO (08:38)
[2019-04-23] MEDS: cloNIDine 0.1 mg Tablet PO (08:39)
[2019-04-23] MEDS: losartan 50 mg Tablet 100 MG PO (08:39)
[2019-04-23] MEDS: carvedilol 6.25 mg Tablet PO (08:39)
[2019-04-23 09:46] LABS: Basophils # 0.1 10^3/uL (0.0-0.1); Basophils % 0.8 %; Eosinophils # 0.5 10^3/uL (0.0-0.8); Eosinophils % 7.1 %; Hematocrit 40.8 % (37.0-47.0); Hemoglobin 11.9 g/dL (11.5-15.3); Lymphocytes # 1.3 10^3/uL (0.8-4.8); Lymphocytes % 20.5 %; Mean Corpuscular HGB Conc 29.2 g/dL (30.0-36.0); Mean Corpuscular Hemoglobin 22.9 pg (28.0-34.0); Mean Corpuscular Volume 78.5 fL (81-99); Mean Platelet Volume 10.6 fL (7.4-10.4); Monocytes # 0.4 10^3/uL (0.2-0.9); Monocytes % 5.4 %; Neutrophils # 4.3 10^3/uL (1.8-7.7); Neutrophils % 65.7 %; Nucleated Red Blood Cells % 0 %; Platelet Count 248 10^3/cmm (130-400); Red Cell Distribution Width 22.1 % (12.1-15.1); White Blood Count 6.5 10^3/uL (4.0-10.0)
--- NOTE | 2019-04-23 09:49 | P.DS_ITS ---
Discharge Providers Date of Admission: 04/20/19 20:37 Date of Discharge: Date of Discharge: April 23, 2019 Attending Provider at Admission: Garry Travis MD Attending Provider at Discharge: Adolfo Prajapati MD Primary Care Provider: Garry Travis MD Diagnoses at Discharge Discharge Diagnosis (1) Hypertensive urgency, malignant: Status: Acute (2) Obstructive sleep apnea: Status: Acute (3) Hyperlipidemia: Status: Acute (4) COPD (chronic obstructive pulmonary disease): Status: Acute (5) Diabetes mellitus type 2 in nonobese: Status: Acute Reason for Visit Reason for Visit: Reason For Visit: high bp Hospital Course Discharge Summary: Marifer Loza is a 68 year old female who presents to the emergency room due to elevated blood pressure. She ran out of her clonidine approximately 4 days ago. Blood pressures been increasingly getting high since then. She has been struggling with high blood pressure for the past couple of months. She is had her medications escalated significantly. Even with the clonidine her blood pressures have been 160s and 170s at home. It got over 200 which prompted her to come in. She has been having some significant headaches associated with it. No chest pain or shortness of breath. When she got to the ER she was found to have blood pressures in the 270s systolic. She was placed on a Cardene drip with persistent elevated pressures. Patient was admitted to the ICU for further management of her antihypertensive medications. Her blood pressures were difficult to control ,cardiology was consulted and her antihypertensives were adjusted. Her lisinopril was changed to losartan, coreg and amlodidpine was added. As the blood pressures were difficult to control CTA was done to rule out renal artery stenosis for the reason of secondary hypertension. Her blood pressures are most likely elevated due to severe sleep apnea. On further interview the patient patient states she is severe sleep apnea for which she uses CPAP but when she was in the hospital at [place] she was given BiPAP. Patient most likely needs a fresh sleep study for new BiPAP/CPAP settings. She responded well to the treatment and blood pressure on discharge was 140/80. Physical Exam Narrative: EXAM NARRATIVE: General: No acute distress, AO x3 HEENT: PERRLA, pupils bilaterally equal and reactive Chest: Normal vesicular breath sounds, no added sounds, equal good air entry bilaterally CVS: S1-S2 regular, no murmurs, no tachycardia, no gallops, no rubs Abdomen: Soft, nontender, no organomegaly, bowel sounds present Neuro: No focal deficits, no facial deformity, AO x3, power 5/5 in all limbs Discharge Data Data Completed and Pending: Completed Studies During Hospitalization Category Date Time Status CT angio abdomen 91414 Urgent Cat Scan 04/21/19 06:[address] head wo con* [id number] Urgent Cat Scan 04/20/19 19:01 Completed Pending at discharge Category Date Time Status Comprehensive Met abolic Panel Routi ne Lab 04/23/19 09:22 Received Labs from last 24 hours 04/23/19 04/22/19 09:22 16:54 WBC 6.5 RBC 5.20 Hgb 11.9 Hct 40.8 MCV 78.5 L MCH 22.9 L MCHC 29.2 L RDW 22.1 H Plt Count 248 MPV 10.6 H Neut % (Auto) 65.7 Lymph % (Auto) 20.5 [place] % (Auto) 5.4 Eos % (Auto) 7.1 Baso % (Auto) 0.8 Neut # (Auto) 4.3 Lymph # (Auto) 1.3 [place] # (Auto) 0.4 Eos # (Auto) 0.5 Baso # (Auto) 0.1 Nucleated RBC % (a uto) 0 Nucleated RBCs # 0.0 POC Glucose 139 Vitals: Last Vital Signs Temp 98.0 F 04/23/19 05:30 Pulse 77 04/23/19 08:42 Resp 16 04/23/19 08:40 BP 180/74 04/23/19 08:39 Pulse Ox 97 04/23/19 08:40 Discharge Plan Discharge Patient Disposition: Home, Self-Care Condition: Stable Prescriptions: New losartan 50 mg Tablet 100 mg PO DAILY Qty: 60 RF: 0 losartan 50 mg Tablet 50 mg PO QPM Qty: 30 RF: 0 clonidine HCl 0.1 mg Tablet 0.1 mg PO TID Qty: 60 RF: 0 carvedilol 6.25 mg Tablet 6.25 mg PO BID Qty: 60 RF: 0 hydrochlorothiazide 25 mg Tablet 25 mg PO BID Qty: 60 RF: 0 amlodipine 5 mg tablet 5 mg PO DAILY Qty: 30 RF: 0 Continued albuterol sulfate 2.5 mg /3 mL (0.083 %) solution for nebulization RF: 0 alprazolam 0.25 mg tablet PO BEDTIME RF: 0 atorvastatin 40 mg tablet DAILY RF: 0 fluconazole 10 mg/mL Suspension For Reconstitution RF: 0 fluticasone propion-salmeterol 250-50 mcg/dose blister with device INHALATION RF: 0 glimepiride 4 mg tablet RF: 0 nitroglycerin 0.4 mg tablet, sublingual RF: 0 omeprazole 40 mg capsule,delayed release(DR/EC) RF: 0 sertraline 100 mg tablet RF: 0 Discontinued carvedilol 12.5 mg tablet RF: 0 carvedilol 25 mg Tablet 25 mg PO BID RF: 0 enalapril maleate 20 mg tablet 10 BID RF: 0 hydrochlorothiazide 25 mg tablet RF: 0 isosorbide mononitrate 30 mg tablet extended release 24 hr PO RF: 0 lisinopril 40 mg tablet RF: 0 Discharge Orders: Discharge Order (Routine); Ordered 04/23/19 Ordered By: Adolfo Prajapati Referrals: Stephany Saldivar MD [Physician] - 7-10 days Garry Travis MD [Primary Care Provider] - 2 weeks (For new sleep study) Discharge Diet: Diabetic and Low Salt Discharge Activity: Resume usual activity Patient Instructions: Clonidine (By mouth), Hydrochlorothiazide (By mouth), Losartan (By mouth), Carvedilol (By mouth), Heart Healthy Diet, Sleep Apnea Syndrome (DC), Meal Planning with Diabetes Exchanges (DC), Meal Planning with Diabetes Exchanges (GEN), Hypertensive Crisis (DC) Discharge Attestations Time Spent in Discharge Care*: greater than 30 min Specific Discharge Activities: Specific discharge activities: educating patient, discussing with pcp/other providers and discussing with disability case manager/social workers/dc planners Status at Discharge: Cognitive status at discharge: cognitively intact , Behavioral status at discharge: cooperative , Functional status at discharge: independent ambulation Overall status at discharge: patient is progressing back to baseline Quality Metrics Clinical Quality Measures During this hospital stay, did patient experience: None Coding Level of Care Code Acute Basin Tender for Chg Fwd Diagnoses Hypertensive urgency, malignant I16.0 Obstructive sleep apnea G47.33 Hyperlipidemia E78.5 COPD (chronic obstructive pulmonary disease) J44.9 Diabetes mellitus type 2 in nonobese E11.9
[2019-04-23 10:04] LABS: Alanine Aminotransferase 25 U/L (0-33); Albumin Level 3.7 g/dL (3.5-5.2); Alkaline Phosphatase 97 IU/L (35-105); Anion Gap 19.1 (5-19); Aspartate Amino Transferase 38 U/L (0-32); Blood Urea Nitrogen 13 mg/dL (8-23); Calcium 9.7 mg/dL (8.5-10.5); Carbon Dioxide 26 mmol/L (22-29); Chloride 95 mmol/L (98-107); Globulin 3.4 g/dL (1.3-4.6); Glomerular Filtration Rate 99.1 mL/min (90-130); Glucose 353 mg/dL (65-115); Potassium 4.1 mmol/L (3.5-5.1); Sodium 136 mmol/L (136-145); Total Bilirubin 0.6 mg/dL (0.15-1.2); Total Protein 7.1 g/dL (6.6-8.7)
--- NOTE | 2019-04-23 12:35 | PC.NURSE ---
Discharge instructions provided to pt. Pt declined to go over care notes about new medications: Losartan, Coreg, Amlodipine, and hydrochlorothiazide. Care notes for Hypertensive crisis, Obstructive sleep apnea, Heart health diet, and Diabetes Education also provided. Pt declined to go over these as well. Prescriptions e-scripted to [facility] in [place] per her request. Follow up appt to be made by patient discussed, Medication: new, continued and stopped, S/S of heart attack and stroke discussed with pt. Pt verbalized understanding. Pt to front entrance via W/C. Pt discharged.
--- NOTE | 2019-04-23 19:47 | P.PN_ITS ---
Subjective Subjective: Interval history: Blood pressure has improved now. Currently it is 140/90. Denies any more complain. Vitals/I&O/Wt Last Vital Signs Temp 97.6 F 04/23/19 12:16 Pulse 60 04/23/19 10:00 Resp 14 04/23/19 12:16 BP 143/66 04/23/19 12:16 Pulse Ox 98 04/23/19 12:16 04/23/19 04/23/19 04/23/19 06:59 14:59 22:59 Intake Total 480 / 820 400 / 400 Output Total 1350 / 2050 Balance -870 / -1230 400 / 400 Physical Exam Narrative: EXAM NARRATIVE: GENERAL: Patient is alert, awake and oriented x3. NECK: No jugular vein distension. HEENT: No cyanosis. No icterus. No pallor. HEART: Regular S1 and S2. No murmur, rub or gallop. LUNGS: Clear to auscultate bilaterally. ABDOMEN: Soft, nontender and nondistended. Positive bowel sounds. No guarding, rebound or tenderness. CENTRAL NERVOUS SYSTEM: Grossly nonfocal. EXTREMITIES: Lower extremities without edema bilaterally. Data : 04/23/19 09:22 04/23/19 09:22 A&P Assessment and plan (1) Hypertensive urgency, malignant: Currently stable. Continue Coreg, losartan, loratadine. Amlodipine is also added. Advised to follow-up with Dr. Travis Status: Acute Code(s): I16.0 - Hypertensive urgency (2) Hyperlipidemia: Continues to Status: Acute Code(s): E78.5 - Hyperlipidemia, unspecified (3) Obstructive sleep apnea: She will be following up with Dr. Travis for sleep titration study Status: Acute Code(s): G47.33 - Obstructive sleep apnea (adult) (pediatric) (4) Hypertensive emergency: Resolved Status: Acute Code(s): I16.1 - Hypertensive emergency Attestations Medical Necessity Statement*: Patient can be discharged home and follow-up with Dr. Travis Coding Level of Care Code Established Pt Acute Senior Engineering Associate for Chg Fwd Patient Type Established History Expanded Problem Focused Exam Expanded Problem Focused Medical Decision Making Moderate Complexity Diagnoses Hypertensive urgency, malignant I16.0 Hyperlipidemia E78.5 Obstructive sleep apnea G47.33 Hypertensive emergency I16.1
== END 2019-04-23 12:25 | disposition home or self-care (01) | DRG 305 ==
LOC: ER 19:00 → ICU 21:21
PROVIDERS: Admitting Provider Family Medicine; Emergency Provider Emergency Medicine; Family Provider Family Medicine; PCP Family Medicine; Visit Provider Student in an Organized Health Care Education/Training Program
DX: I16.0 Hypertensive urgency (principal); I10 Essential (primary) hypertension; E78.5 Hyperlipidemia, unspecified; J44.9 Chronic obstructive pulmonary disease, unspecified; G47.33 Obstructive sleep apnea (adult) (pediatric); E11.9 Type 2 diabetes mellitus without complications; Z87.891 Personal history of nicotine dependence; Z79.4 Long term (current) use of insulin; Z79.84 Long term (current) use of oral hypoglycemic drugs
CPT/HCPCS: 12345; 36415; 36416; 70450; 74175; 80048; 80053; 82962; 83735; 83880; 84484; 85025; 93005; 94660; 96365; 96366; 96372; 96375; 99284; J0360; J1650; J3490; J7050; Q0163; Q9967

== ENCOUNTER 2019-05-02 16:37 | Emergency (ER) | payer MEDICARE, SELFPAY ==
[2019-05-02] VITALS (7 sets, daily range): BP systolic 182–249; BP diastolic 70–136; PULSE 73–98; RESP 16–20; TEMP 36.6; O2SAT 92–96; BMI 37.2
[2019-05-02 19:50] LABS: Basophils # 0.1 10^3/uL (0.0-0.1); Basophils % 0.8 %; Eosinophils # 0.6 10^3/uL (0.0-0.8); Eosinophils % 5.8 %; Hematocrit 39.6 % (37.0-47.0); Hemoglobin 12.2 g/dL (11.5-15.3); Lymphocytes # 2.3 10^3/uL (0.8-4.8); Lymphocytes % 22.6 %; Mean Corpuscular HGB Conc 30.8 g/dL (30.0-36.0); Mean Corpuscular Hemoglobin 23.6 pg (28.0-34.0); Mean Corpuscular Volume 76.6 fL (81-99); Mean Platelet Volume 9.9 fL (7.4-10.4); Monocytes # 0.7 10^3/uL (0.2-0.9); Monocytes % 6.6 %; Neutrophils # 6.4 10^3/uL (1.8-7.7); Neutrophils % 63.9 %; Nucleated Red Blood Cells % 0 %; Platelet Count 245 10^3/cmm (130-400); Red Blood Count 5.17 10^6/uL (4.1-5.3)
[2019-05-02 20:03] LABS: Alanine Aminotransferase 30 U/L (0-33); Albumin Level 4.3 g/dL (3.5-5.2); Alkaline Phosphatase 149 IU/L (35-105); Anion Gap 18.5 (5-19); Aspartate Amino Transferase 28 U/L (0-32); Blood Urea Nitrogen 19 mg/dL (8-23); Calcium 10.2 mg/dL (8.5-10.5); Carbon Dioxide 27 mmol/L (22-29); Chloride 93 mmol/L (98-107); Globulin 3.9 g/dL (1.3-4.6); Glomerular Filtration Rate 82.7 mL/min (90-130); Glucose 95 mg/dL (65-115); Potassium 3.5 mmol/L (3.5-5.1); Sodium 135 mmol/L (136-145); Total Bilirubin 0.4 mg/dL (0.15-1.2); Total Protein 8.2 g/dL (6.6-8.7)
--- NOTE | 2019-05-02 20:23 | ED_ITS ---
Entered by Mony Negro, acting as scribe for Jennifer Jean MD, MSM May 02, 2019 16:37 HPI - General Adult General: Chief complaint: General Medical Stated complaint: high bp Time Seen by Provider: 05/02/19 20:16 Source: patient and family Mode of arrival: ambulatory Limitations: no limitations History of Present Illness: HPI narrative: 69 yo female presents with high blood pressure. pt states this started several days ago but worsened today. pt states she has had a hx of this since her heart attack since February. pt states she was admitted for the same last week. pt stated that she was seen at pcp clinic and they sent her to the ED for her high blood pressure. pt states she drinks up to 10 cups of coffee in a day. pt denies any other symptoms at this time. complaint: high blood pressure Onset (ago): day(s) (today) Severity: moderate Pain Consistency: constant Relieving factors: none Exacerbating factors: none Associated symptoms: Reports no associated symptoms, chest pain, headache(s) and other (dizziness); Deny dyspnea, nausea, rash, palpitations or vomiting Treatments prior to arrival: none Review of Systems General: Reports: 10 or more systems reviewed and unremarkable except in HPI and below Const: Denies: fever, chills or body aches Eyes: Denies: change in vision or blurry vision ENMT: Denies: throat pain, enlarged tonsils, painful swallowing, hoarseness, mouth pain or swelling of lips/tongue Card: Reports: chest pain; Denies: palpitations, irregular heart rhythm, edema or swelling of feet/ankles Resp: Denies: shortness of breath, productive cough or non-productive cough GI: Denies: abdominal pain, nausea or vomiting : Denies: flank pain, difficulty urinating, painful urination, urinary frequency, urinary urgency or urinary hesitancy Musc: Denies: joint warmth Skin/Breast: Denies: rash, itching or redness Neuro: Reports: headache; Denies: numbness in extremities or weakness in extremities Endo: Denies: excessive urination, excessive thirst or tired all the time All/Imm: Denies: acute wheezing PFS ED PFSH: Medical History (Updated 05/02/19 @ 22:29 by Jennifer Jean MD, [facility] [place] COPD (chronic obstructive pulmonary disease) Diabetes mellitus type 2 in nonobese Hyperlipidemia Obstructive sleep apnea [place] (myocardial infarction) Feb 2019 Surgical History History of cholecystectomy History of laparoscopic adjustable gastric banding Family History Other CAD (coronary artery disease) Cancer Diabetes Social History Smoking and tobacco status: former smoker Alcohol intake: never Physical Exam Const: COMMON NORMALS: no apparent distress, average body habitus, oriented x3, no limitations, healthy appearing, alert and well nourished HENMT: COMMON NORMALS: normocephalic, head/scalp atraumatic and moist oral mucous membranes HEAD & SCALP: normocephalic and atraumatic Eye: COMMON NORMALS: PERRL, EOMs intact bilaterally, conjunctivae normal and no scleral icterus CONJUNCTIVA: Yes conjunctivae normal PUPIL: Yes PERRL Neck/C-Spine: COMMON NORMALS: full ROM, supple, no meningeal signs, no JVD and no carotid bruits Chest: COMMONS NORMALS: inspection of chest normal and palpation of chest normal Resp: COMMON NORMALS: normal respiratory effort, no retractions, no use of accessory muscles, clear to auscultation bilaterally and percussion normal AUSCULTATION: clear to auscultation bilaterally PERCUSSION: percussion normal Cardio: COMMON NORMALS: no JVD, regular rate, regular rhythm, S1 normal heart sound, S2 normal heart sound, no gallops, no clicks, no murmurs, no rub and peripheral pulses 2+ throughout RATE: regular rate RHYTHM: regular rhythm HEART SOUNDS: S1 normal and S2 normal PERIPHERAL PULSES: pulses 2+ throughout GI: COMMON NORMALS: normal to inspection, nondistended, normoactive bowel sounds, soft to palpation, non-tender, no hepatosplenomegaly, no masses and no bruits PALPATION: Yes soft and Yes no hepatosplenomegaly : COMMON NORMALS: Yes no CVA tenderness BLADDER/KIDNEY EXAM: Yes no CVA tenderness Back/Pelvis: COMMON NORMALS: no CVA tenderness Extremity: COMMON NORMALS: normal to inspection, full ROM, normal capillary refill, no calf tenderness and no pedal edema Neuro: COMMON NORMALS: oriented x3 SENSORIUM/ORIENTATION: Yes alert MENINGEAL SIGNS: Yes no meningeal signs Skin: COMMON NORMALS: no rashes or lesions noted, no wounds, skin turgor normal, no jaundice, no petechiae and no mottling GENERAL SKIN EXAM: no rashes or lesions noted and turgor normal Course Vital Signs: Vital signs: Vital Signs Temperature 97.8 F 05/02/19 16:44 Pulse Rate 76 05/02/19 22:45 Respiratory Rate 18 05/02/19 22:45 Blood Pressure 182/77 05/02/19 22:45 Pulse Oximetry 96 05/02/19 22:45 MDM - General Adult MDM Narrative: Medical decision making narrative: 69-year-old female patient who has had problems with control of her hypertension. She has been recently admitted for uncontrolled hypertension. During her history she revealed to me that she takes 10 cups of coffee daily. I believe this is the source of her uncontrolled hypertension. We were able to control her hypertension with intravenous hydralazine followed by labetalol. Monitoring of her blood pressure after the medications remained stable. Ev aluation did not reveal any end organ damage. She is discharged home with instructions to increase her carvedilol from 6.125 mg twice a day to 12.5 mg twice a day. She is to follow-up with her primary care provider Lab Data: Labs: Lab Results 05/02/19 05/02/19 05/02/19 Range/Units 19:41 19:41 19:41 WBC 10.0 (4.0-10.0) 10^3/ uL RBC 5.17 (4.1-5.3) 10^6/u L Hgb 12.2 (11.5-15.3) g/dL Hct 39.6 (37.0-47.0) % MCV 76.6 L (81-99) fL MCH 23.6 L (28.0-34.0) pg MCHC 30.8 (30.0-36.0) g/dL RDW 20.0 H (12.1-15.1) % Plt Count 245 (130-400) 10^3/c mm MPV 9.9 (7.4-10.4) fL Neut % (Auto) 63.9 % Lymph % (Auto) 22.6 % [place] % (Auto) 6.6 % Eos % (Auto) 5.8 % Baso % (Auto) 0.8 % Neut # (Auto) 6.4 (1.8-7.7) 10^3/u L Lymph # (Auto) 2.3 (0.8-4.8) 10^3/u L [place] # (Auto) 0.7 (0.2-0.9) 10^3/u L Eos # (Auto) 0.6 (0.0-0.8) 10^3/u L Baso # (Auto) 0.1 (0.0-0.1) 10^3/u L Nucleated RBC % (a uto) 0 % Nucleated RBCs # 0.0 /100WBC Sodium 135 L (136-145) mmol/L Potassium 3.5 (3.5-5.1) mmol/L Chloride 93 L (98-107) mmol/L Carbon Dioxide 27 (22-29) mmol/L Anion Gap 18.5 (5-19) BUN 19 (8-23) mg/dL Creatinine 0.7 (0.5-0.9) mg/dL GFR Calculation 82.7 L (90-130) mL/min Glucose 95 (65-115) mg/dL Calcium 10.2 (8.5-10.5) mg/dL Total Bilirubin 0.4 (0.15-1.2) mg/dL AST 28 (0-32) U/L ALT 30 (0-33) U/L Alkaline Phosphata se 149 H (35-105) IU/L Troponin T Baselin e 18 H (0-10) ng/mL Troponin T 120 Min apoorva (0-10) ng/mL Delta Troponin T (0-10) ABS# Total Protein 8.2 (6.6-8.7) g/dL Albumin 4.3 (3.5-5.2) g/dL Globulin 3.9 (1.3-4.6) g/dL TSH (0.27-4.20) uIU/ mL Urine Color (Yellow) Urine Appearance (CLEAR) Urine pH (5-7) Ur Specific Gravit y (1.005-1.030) Urine Protein (Negative) Urine Glucose (UA) (Normal) Urine Ketones (Negative) Urine Occult Blood (Negative) Urine Nitrate (Negative) Urine Bilirubin (NEGATIVE) Urine Urobilinogen (Negative) mg/dL Ur Leukocyte Yeni ase (Negative) 05/02/19 05/02/19 05/02/19 Range/Units 19:41 21:13 21:38 WBC (4.0-10.0) 10^3/ uL RBC (4.1-5.3) 10^6/u L Hgb (11.5-15.3) g/dL Hct (37.0-47.0) % MCV (81-99) fL MCH (28.0-34.0) pg MCHC (30.0-36.0) g/dL RDW (12.1-15.1) % Plt Count (130-400) 10^3/c mm MPV (7.4-10.4) fL Neut % (Auto) % Lymph % (Auto) % [place] % (Auto) % Eos % (Auto) % Baso % (Auto) % Neut # (Auto) (1.8-7.7) 10^3/u L Lymph # (Auto) (0.8-4.8) 10^3/u L [place] # (Auto) (0.2-0.9) 10^3/u L Eos # (Auto) (0.0-0.8) 10^3/u L Baso # (Auto) (0.0-0.1) 10^3/u L Nucleated RBC % (a uto) % Nucleated RBCs # /100WBC Sodium (136-145) mmol/L Potassium (3.5-5.1) mmol/L Chloride (98-107) mmol/L Carbon Dioxide (22-29) mmol/L Anion Gap (5-19) BUN (8-23) mg/dL Creatinine (0.5-0.9) mg/dL GFR Calculation (90-130) mL/min Glucose (65-115) mg/dL Calcium (8.5-10.5) mg/dL Total Bilirubin (0.15-1.2) mg/dL AST (0-32) U/L ALT (0-33) U/L Alkaline Phosphata se (35-105) IU/L Troponin T Baselin e (0-10) ng/mL Troponin T 120 Min apoorva 18.34 H (0-10) ng/mL Delta Troponin T 0.34 (0-10) ABS# Total Protein (6.6-8.7) g/dL Albumin (3.5-5.2) g/dL Globulin (1.3-4.6) g/dL TSH 3.99 (0.27-4.20) uIU/ mL Urine Color Yellow (Yellow) Urine Appearance Clear (CLEAR) Urine pH 5 (5-7) Ur Specific Gravit y 1.010 (1.005-1.030) Urine Protein Neg (Negative) Urine Glucose (UA) Norm (Normal) Urine Ketones Negative (Negative) Urine Occult Blood Neg (Negative) Urine Nitrate Negative (Negative) Urine Bilirubin Neg (NEGATIVE) Urine Urobilinogen Norm (Negative) mg/dL Ur Leukocyte Yeni ase Negative (Negative) EKG Data^: EKG 1: Attestation: I personally reviewed and interpreted this EKG as follows: EKG interpretation date: 05/02/19 EKG interpretation time: 20:47 Prior EKG tracings: not available for review Interpretation: Normal sinus rhythm. Heart rate [address] changes. Normal axis Discharge Plan Discharge Patient Disposition: Home, Self-Care Clinical Impression: Asymptomatic hypertensive urgency Condition: Stable Prescriptions: Continued fluticasone propion-salmeterol [Advair Diskus] 250-50 mcg/dose blister with device 1 inh INHALATION Q12H RF: 0 metformin 1,000 mg tablet 1,000 mg PO BID RF: 0 nifedipine 60 mg tablet extended release 60 mg PO DAILY RF: 0 hydrochlorothiazide 25 mg tablet 25 mg PO BID RF: 0 albuterol sulfate 2.5 mg /3 mL (0.083 %) solution for nebulization RF: 0 fluticasone propion-salmeterol 250-50 mcg/dose blister with device INHALATION RF: 0 nitroglycerin 0.4 mg tablet, sublingual RF: 0 alprazolam 0.25 mg tablet 0.25 mg PO BEDTIME RF: 0 atorvastatin 40 mg tablet 40 mg PO DAILY RF: 0 glimepiride 4 mg tablet 4 mg PO BID RF: 0 omeprazole 40 mg capsule,delayed release(DR/EC) 40 mg PO DAILY RF: 0 sertraline 100 mg tablet 100 mg PO DAILY RF: 0 Changed carvedilol 6.25 mg Tablet 12.5 mg PO BID Qty: 60 RF: 0 Discharge Orders: Discharge Order (Routine); Ordered 05/02/19 Ordered By: Jennifer Jean Referrals: Argenis Costa DO [Primary Care Provider] - 1-3 days Garry Travis MD [Family Provider] - Patient Instructions: Hypertensive Crisis (ED) Activity Restrictions/Additional Instructions: Return for any new or worsening symptoms. Follow-up with your primary care provider within 3 days. Take the medications as prescribed. I have increased the dose of your carvedilol from 6.125 to 12.5 mg twice a day. That means the dose has been doubled. Discharge Date/Time: 05/02/19 22:46 Coding Level of Care Code ED Paper Rewinder Operator for Chg Fwd Exam Comprehensive The documentation recorded by the Marky joyner Bridget Annette, accurately reflects the service I personally performed and the decisions made by , Jennifer Jean MD, [facility] 02, 2019 16:37
[2019-05-02 20:39] LABS: Troponin(5th) Baseline 18 ng/mL (0-10)
[2019-05-02] MEDS: hyDRALAzine 20 mg/mL INJ 1 mL 10 MG IVP (20:47)
[2019-05-02 20:48] LABS: Thyroid Stimulating Hormone 3.99 uIU/mL (0.27-4.20)
[2019-05-02] MEDS: labetalol 5 mg/mL SDV 20mL 20 MG IVP (21:46)
[2019-05-02 21:49] LABS: Add Urine Microscopic? NO
[2019-05-02 21:58] LABS: Bilirubin Urine Neg (NEGATIVE); Blood Urine Neg (Negative); Glucose Urine UA Norm (Normal); Ketones Urine Negative (Negative); Leukocyte Esterase Urine Negative (Negative); Nitrate Urine Negative (Negative); Protein Urine Neg (Negative); Urine Appearance Clear (CLEAR); Urine Color Yellow (Yellow); Urobilinogen Urine Norm (Negative); pH Urine 5 (5-7)
[2019-05-02 22:18] LABS: Troponin 5 2HR 18.34 ng/mL (0-10); Troponin 5 2HR Delta 0.34 ABS# (0-10)
--- NOTE | 2019-05-02 22:18 | ECG_ITS ---
Measurements Intervals [place] Rate: 73 P: 60 NM: 188 QRS: 23 QRSD: 113 T: 79 QT: 420 QTc: 464 SINUS RHYTHM ANTERIOR MYOCARDIAL INFARCTION , OF INDETERMINATE AGE [40+ ms Q WAVE AND/OR ST/T ABNORMALITY IN V3/V4] Compared to ECG 04/21/2019 00:26:35 Myocardial infarct finding now present Sinus bradycardia no longer present T-wave abnormality no longer present Prolonged QT interval no longer present Electronically Signed On 05-03-2019 17:31:09 ORDER DISPATCHER by Santa Butts M.D. [email or web address]
== END 2019-05-02 22:46 | disposition home or self-care (01) ==
PROVIDERS: Physician Assistant; Emergency Provider Family Medicine; Family Provider Family Medicine; PCP Family Medicine
DX: I16.0 Hypertensive urgency (principal); I10 Essential (primary) hypertension; J44.9 Chronic obstructive pulmonary disease, unspecified; E11.9 Type 2 diabetes mellitus without complications; E78.5 Hyperlipidemia, unspecified; I25.2 Old myocardial infarction; Z87.891 Personal history of nicotine dependence; Z79.84 Long term (current) use of oral hypoglycemic drugs; Z79.51 Long term (current) use of inhaled steroids
CPT/HCPCS: 36415; 80053; 81003; 84443; 84484; 85025; 93005; 96374; 96375; 99283; 99284; J0360; J3490

== ENCOUNTER → 2019-05-09 10:44 | Outpatient (BNVA) | payer MEDICARE, SELFPAY | PROVIDERS: Family Provider Family Medicine; PCP Family Medicine; Visit Provider Family Medicine | DX: I10 Essential (primary) hypertension (principal); E78.5 Hyperlipidemia, unspecified; E11.9 Type 2 diabetes mellitus without complications | CPT/HCPCS: 80053; 80061; 82044; 83036; 85025 ==

== ENCOUNTER 2019-08-24 20:00 | Outpatient (CLI) | payer MEDICARE, SELFPAY | END 2019-08-24 20:01 | disposition home or self-care (01) | LOC: SLEEP 08-25 08:43 | PROVIDERS: Family Provider Family Medicine; PCP Family Medicine; Visit Provider Internal Medicine Cardiovascular Disease | DX: G47.30 Sleep apnea, unspecified (principal) | CPT/HCPCS: 95811 ==

== ENCOUNTER → 2019-08-30 09:50 | Outpatient (BNVA) | payer MEDICARE, SELFPAY | PROVIDERS: Family Provider Family Medicine; PCP Family Medicine; Visit Provider Internal Medicine Cardiovascular Disease | DX: I10 Essential (primary) hypertension (principal) | CPT/HCPCS: 80048; 83735; 83880 ==

== ENCOUNTER → 2019-10-24 17:20 | Outpatient (BNVA) | payer OTHER, SELFPAY | PROVIDERS: Family Provider Family Medicine; PCP Family Medicine; Visit Provider Nurse Practitioner Family | DX: R30.0 Dysuria (principal); B37.3 Candidiasis of vulva and vagina | CPT/HCPCS: 81000 ==

== ENCOUNTER 2019-10-26 10:13 | Emergency (ER) | payer MEDICARE, SELFPAY ==
[2019-10-26 10:21] VITALS: BMI 39.7
[2019-10-26 10:25] VITALS: BP 244/93; PULSE 77; RESP 20; TEMP 36.6; O2SAT 97
--- NOTE | 2019-10-26 10:35 | ED_ITS ---
HPI - Back Pain/Injury General: Chief Complaint: Back Pain/Injury Stated Complaint: BACK PAIN Time Seen by Provider: 10/26/19 10:21 History of Present Illness: HPI Narrative: Patient complained about left lower back pain with movement and range of motion times last few days. Patient does have a history of for herniated disc in lumbar spine. She says been a while since they bother her. Was recently treated and is currently on antibiotics for urinary tract infection. Denies any urinary problems presently MD elicited complaint: back pain Pertinent past history: prior back pain Onset (ago): day(s) Timing: constant and progressively worsening Severity: moderate Quality: aching Location: lumbar spine, left flank and left lower back Radiation: none Exacerbating factors: movement Relieving factors: supine Context: turning/twisting Associated symptoms: Reports no associated symptoms; Deny abdominal pain, chills, fever(s), nausea or vomiting Review of Systems Const: Denies: fever(s), chills or body aches Eyes: Denies: change in vision or blurry vision ENMT: Denies: throat pain or nasal congestion Card: Denies: chest pain or dyspnea on exertion Resp: Denies: dyspnea, productive cough or non-productive cough GI: Denies: abdominal pain, nausea or vomiting Musc: Reports: back pain; Denies: extremity pain Skin/Breast: Denies: rash Neuro: Denies: headache(s) Psych: Denies: anxiety or depression Casa/Lymph: Denies: easy bruising PFS ED PFSH: Medical History (Updated 10/24/19 @ 15:01 by ROVERTO Siddiqui) Benign essential HTN COPD (chronic obstructive pulmonary disease) Diabetes mellitus type 2 in nonobese Hyperlipidemia Obstructive sleep apnea [facility] (myocardial infarction) Feb 2019 Type 2 diabetes mellitus, without long-term current use of insulin Surgical History History of cholecystectomy History of laparoscopic adjustable gastric banding Family History Other CAD (coronary artery disease) Cancer Diabetes Social History (Updated 10/24/19 @ 14:41 by Dania Hickman LPN, RT) Smoking and tobacco status: former smoker Quit status (tobacco): has quit using tobacco Year quit tobacco: 1991 Former quit date comment: PPD x Second hand smoke exposure: No Alcohol intake: never Lives independently: Yes Marital status: / Current occupational status: retired History of recent travel: Yes Details: [place] 3 weeks ago Out of state: Yes Current gender identity: Female Physical Exam Const: COMMON NORMALS: no acute distress, average body habitus and patient oriented x3 HENMT: COMMON NORMALS: normocephalic HEAD & SCALP: normal to inspection and normocephalic FACE & SINUS: normal facial exam Eye: COMMON NORMALS: conjunctivae normal GENERAL EYE: appearance normal, both eyes and all related structures CONJUNCTIVA: Yes conjunctivae normal Neck/C-Spine: COMMON NORMALS: no JVD Chest: COMMONS NORMALS: normal inspection of the chest Resp: COMMON NORMALS: normal respiratory effort and clear to auscultation bilaterally AUSCULTATION: clear to auscultation bilaterally Cardio: COMMON NORMALS: no JVD, regular rate and regular rhythm RATE: regular rate RHYTHM: regular rhythm GI: COMMON NORMALS: Normal to inspection, nondistended, normoactive bowel sounds present Back/Pelvis: LUMBAR SPINE/LOWER BACK: No straight leg raise positive right and Yes straight leg raise positive left Straight leg raise positive details left: at 30 degrees Extremity: COMMON NORMALS: normal to inspection and full ROM Neuro: COMMON NORMALS: patient oriented x3 Course Vital Signs: Vital signs: Vital Signs Temperature 97.9 F 10/26/19 10:25 Pulse Rate 77 10/26/19 10:25 Respiratory Rate 20 H 10/26/19 10:25 Blood Pressure 244/93 10/26/19 10:25 Pulse Oximetry 97 10/26/19 10:25 Discharge Plan Discharge Prescriptions: No Action acetaminophen [Tylenol Arthritis Pain] 650 mg tablet extended release 1,300 mg PO Q12H RF: 0 triamcinolone acetonide 0.1 % cream 1 applic TOPICAL BID Qty: 453.6 RF: 0 metformin 1,000 mg tablet 1,000 mg PO BID Qty: 60 RF: 4 fluconazole [Diflucan] 150 mg tablet 150 mg PO Q3D Qty: 2 RF: 0 sulfamethoxazole-trimethoprim [Bactrim DS] 800-160 mg tablet 1 tab PO BID 7 Days Qty: 14 RF: 0 (DME) cpap mask & supplies Qty: 1 RF: 0 clonidine HCl 0.1 mg tablet 0.1 mg PO .TID IF OVER 160/100 Qty: 90 RF: 0 nitroglycerin 0.4 mg tablet, sublingual 0.4 mg sublingual Q5M Qty: 1 RF: 2 omeprazole 40 mg capsule,delayed release(DR/EC) 40 mg PO DAILY Qty: 90 RF: 1 glimepiride 4 mg tablet 4 mg PO BID Qty: 180 RF: 0 atorvastatin 40 mg tablet 40 mg PO DAILY Qty: 90 RF: 0 sertraline 100 mg tablet 100 mg PO DAILY Qty: 90 RF: 0 Trelegy Ellipta 100-62.5-25 mcg blister with device 1 inh INHALATION DAILY Qty: 60 RF: 2 hydrochlorothiazide 25 mg tablet 25 mg PO BID Qty: 180 RF: 0 alprazolam 0.25 mg tablet 0.25 mg PO BEDTIME Qty: 30 RF: 1 (DME) AUTO TITRATING CPAP 8-13CM See Rx Instructions .Route .MEDSUPPLY Qty: 1 RF: 0 fenofibrate nanocrystallized 145 mg tablet 145 mg PO DAILY Qty: 30 RF: 1 potassium chloride 10 mEq tablet,ER particles/crystals 10 meq PO DAILY Qty: 30 RF: 3 furosemide 40 mg tablet 40 mg PO QAM Qty: 30 RF: 1 nifedipine 60 mg tablet extended release 30 mg PO DAILY Qty: 30 RF: 0 losartan 50 mg tablet 50 mg PO BID Qty: 60 RF: 4 carvedilol 6.25 mg tablet 6.25 mg PO BID Qty: 60 RF: 5 Coding Level of Care Code ED 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
[2019-10-26] MEDS: ketorolac 60 mg/2 mL INJ IM (10:43)
[2019-10-26 10:53] VITALS: BP 195/80; PULSE 60; RESP 16; TEMP 36.6; O2SAT 94
== END 2019-10-26 10:53 | disposition home or self-care (01) ==
LOC: ER 11:39
PROVIDERS: Emergency Provider Nurse Practitioner Family; PCP Family Medicine
DX: M54.9 Dorsalgia, unspecified (principal); I10 Essential (primary) hypertension; J44.9 Chronic obstructive pulmonary disease, unspecified; E11.9 Type 2 diabetes mellitus without complications; E78.5 Hyperlipidemia, unspecified; I25.2 Old myocardial infarction; Z87.891 Personal history of nicotine dependence
CPT/HCPCS: 12345; 96372; 99281; 99283; J1885

== ENCOUNTER → 2019-11-22 14:00 | Outpatient (BNVA) | payer MEDICARE, SELFPAY | PROVIDERS: PCP Family Medicine; Visit Provider Family Medicine | DX: E11.9 Type 2 diabetes mellitus without complications (principal); E78.2 Mixed hyperlipidemia | CPT/HCPCS: 80053; 80061; 83036; 83721 ==

== ENCOUNTER 2020-01-09 14:33 | Outpatient (CLI) | payer MEDICARE, SELFPAY ==
--- NOTE | 2020-01-09 14:30 | USCV_ITS ---
Denia Marifer Age: 69 Gender: F : 1950 Exam Date: 01/09/2020 15:02 Ordering Phys: Argenis Costa DO Technologist: [place] Exam Location: [facility] [place] HISTORY: Lower extremity pain. PROCEDURES: Venous duplex imaging was performed in only the right lower extremity. The following venous structures were evaluated: common femoral vein, profunda vein, proximal portion of the greater saphenous vein, superficial femoral vein, and the popliteal vein. In addition, the posterior tibial and peroneal trunk were evaluated. FINDINGS: Normal 2-D Doppler and augmentation and compressibility throughout the lower extremity venous structures. Additional imaging through the proximal calf veins also reveals no thrombus. Limited evaluation of the greater saphenous vein is patent with no thrombus. CONCLUSIONS No DVT right lower extremity. Dr. Marija Tanner DO (Electronically Signed) Final Date: 09 January 2020 16:29 S
== END 2020-01-09 14:34 | disposition home or self-care (01) ==
LOC: RAD 14:40
PROVIDERS: PCP Family Medicine; Visit Provider Family Medicine
DX: M79.89 Other specified soft tissue disorders (principal); M79.604 Pain in right leg
CPT/HCPCS: 93971

== ENCOUNTER 2020-01-12 10:42 | Outpatient (RCR) | payer MEDICARE, SELFPAY | END 2020-01-13 23:59 | disposition home or self-care (01) | LOC: SPT 10:42 | PROVIDERS: PCP Family Medicine; Referring Provider Family Medicine; Visit Provider Family Medicine | DX: R22.41 Localized swelling, mass and lump, right lower limb (principal) | CPT/HCPCS: 97161 ==

== ENCOUNTER 2020-01-23 10:00 | Outpatient (RCR) | payer MEDICARE, SELFPAY | END 2020-01-24 10:00 | disposition home or self-care (01) | LOC: SPT 10:00 | PROVIDERS: PCP Family Medicine; Visit Provider Family Medicine | DX: R22.41 Localized swelling, mass and lump, right lower limb (principal) | CPT/HCPCS: 97140 ==

== ENCOUNTER → 2020-02-22 10:28 | Outpatient (BNVA) | payer MEDICARE, SELFPAY | PROVIDERS: PCP Family Medicine; Visit Provider Family Medicine | DX: L30.9 Dermatitis, unspecified (principal); R22.41 Localized swelling, mass and lump, right lower limb; E11.9 Type 2 diabetes mellitus without complications; J44.9 Chronic obstructive pulmonary disease, unspecified; Z13.6 Encounter for screening for cardiovascular disorders | CPT/HCPCS: 80053; 83036 ==

== ENCOUNTER 2020-03-30 15:28 | Emergency (ER) | payer MEDICARE, SELFPAY ==
[2020-03-30 15:47] VITALS: BP 163/72; PULSE 58; RESP 18; TEMP 37; O2SAT 97; BMI 34.9
--- NOTE | 2020-03-30 15:57 | XRR_ITS ---
PROCEDURE INFORMATION: Exam: XR Chest, 1 View Exam date and time: 03/30/2020 5:18 PM Age: 69 years old Clinical indication: Dyspnea; Additional info: Dyspnea/cough TECHNIQUE: Imaging protocol: XR of the chest Views: 1 view. COMPARISON: CR Chest 1 [place] [id number] 03/09/2019 7:23 PM FINDINGS: Lungs: Lungs are clear. Pleural space: There is no pleural effusion or pneumothorax. Heart/Mediastinum: There is mild enlargement of the cardiac silhouette. Bones/joints: Bones are unremarkable. XR/XR chest 1V portable [id number] IMPRESSION: No acute findings.
--- NOTE | 2020-03-30 16:23 | ED_ITS ---
HPI - Nausea/Vomiting/Diarrhea General: Chief complaint: Nausea/Vomiting/Diarrhea Stated complaint: n/v Time Seen by Provider: 03/30/20 15:57 History of Present Illness: HPI Narrative: 69-year-old female presents to the emergency room after leaving rehab facility at [facility]. Few weeks ago she had a below the knee amputation. Evidently she been struggling with hypoglycemia in the afternoon at around 2-3. At times she would get as low as 44. She did take her insulin today. She was discharged home felt fine when she left on the in route home she began to feel lightheaded and dizzy and sick to her stomach. She denies any chest pain or shortness of breath she has vomited x 1. she denies dysuria urgency or frequency. MD elicited complaint: nausea and vomiting Onset (ago): hour(s) Associated nausea: Yes Associated abdominal pain: No Location of pain: None Exacerbating factors: movement Relieving factors: rest Context: recent surgery/procedure Associated symtoms: Reports nausea; Denies altered mental status, anxiety, bloating, change in vision, chest pain, cough, diaphoresis, decreased urine output, dizziness, dysuria, epistaxis, fatigue, fecal incontinence, fevers/chills, headache(s), anorexia, myalgias, numbness, palpitations, rash, short of breath, syncope, tenesmus, tinnitus or weakness Review of Systems Const: Denies: fatigue or diaphoresis Eyes: Denies: change in vision ENMT: Denies: tinnitus or epistaxis Card: Denies: chest pain, palpitations or syncope Resp: Denies: dyspnea, productive cough or non-productive cough GI: Reports: nausea; Denies: bloating or fecal incontinence : Denies: dysuria Skin/Breast: Denies: rash or pruritus Neuro: Denies: headache(s) or dizziness Psych: Denies: anxiety PFSH ED PFSH: Medical History (Updated 03/30/20 @ 17:35 by Agustin Velazco DO) Benign essential HTN COPD (chronic obstructive pulmonary disease) Diabetes mellitus type 2 in nonobese Hyperlipidemia Obstructive sleep apnea [place] (myocardial infarction) Feb 2019 Type 2 diabetes mellitus, without long-term current use of insulin Surgical History History of cholecystectomy History of laparoscopic adjustable gastric banding Family History Other CAD (coronary artery disease) Cancer Diabetes Social History Smoking and tobacco status: former smoker Quit status (tobacco): has quit using tobacco Year quit tobacco: 1991 Former quit date comment: PPD x Second hand smoke exposure: No Alcohol intake: never Lives independently: Yes Marital status: / Current occupational status: retired History of recent travel: Yes Details: [place] 3 weeks ago Out of state: Yes Current gender identity: Female Physical Exam Const: COMMON NORMALS: no acute distress EXAM LIMITATIONS: no altered mental status GENERAL APPEARANCE: cooperative and comfortable ORIENTATION/CONSCIOUSNESS: Yes awake, Yes oriented to person, Yes oriented to place and Yes oriented to time HENMT: COMMON NORMALS: normocephalic, atraumatic and hearing grossly normal bilaterally HEAD & SCALP: normocephalic and atraumatic Neck/C-Spine: COMMON NORMALS: no JVD Resp: COMMON NORMALS: normal respiratory effort, No retractions, No use of accessory muscles and clear to auscultation bilaterally AUSCULTATION: clear to auscultation bilaterally Cardio: COMMON NORMALS: no JVD, regular rate, regular rhythm and No murmurs present (Cardio) RATE: regular rate RHYTHM: regular rhythm GI: COMMON NORMALS: Soft to palpation and No hepatosplenomegaly present AUSCULTATION: Yes normoactive bowel sounds PALPATION: Yes Soft to palpation, No Tenderness to palpation present (GI), No Guarding due to palpation present (GI) and Yes No hepatosplenomegaly present Extremity: NARRATIVE EXTREMITY EXAM: Right leg surgically absent below the knee no significant edema in the left leg Neuro: SENSORIUM/ORIENTATION: Yes oriented to person, Yes oriented to place and Yes oriented to time Skin: COMMON NORMALS: no rashes or lesions noted GENERAL SKIN EXAM: no rashes or lesions noted Course Vital Signs: Vital signs: Vital Signs Temperature 98.6 F 03/30/20 15:47 Pulse Rate 53 L 03/30/20 17:01 Respiratory Rate 18 03/30/20 17:01 Blood Pressure 163/64 03/30/20 17:01 Pulse Oximetry 92 03/30/20 17:01 MDM - Nausea/Vomiting/Diarrhea MDM Narrative: Medical decision making narrative: She is anemic and mildly dehydrated. Her anemia is actually not unexpected given her recent amputation of her leg family says she did get blood while she was at the hospital in the postop phase. Suspect cellulitis caused by the duration some evidence but motion sickness from the ride back from [place] the road is very winding. She has had problems with hypoglycemia but her blood glucose was adequate she may want to review with her primary care doctor she should clinic continue on the glimepiride if like is a persistent problem. We will give her a liter of fluids discharged home with Zofran to use as needed she has an appointment for her primary care doctor in 2 days she should keep that appointment return if she has further problems. Lab Data: Labs: Lab Results 03/30/20 03/30/20 03/30/20 Range/Units 16:15 16:18 16:18 WBC 8.2 (4.0-10.0) 10^3/ uL RBC 4.54 (4.1-5.3) 10^6/u L Hgb 10.6 L (11.5-15.3) g/dL Hct 36.7 L (37.0-47.0) % MCV 80.8 L (81-99) fL MCH 23.3 L (28.0-34.0) pg MCHC 28.9 L (30.0-36.0) g/dL RDW 16.5 H (12.1-15.1) % Plt Count 317 (130-400) 10^3/c mm MPV 10.3 (7.4-10.4) fL Neut % (Auto) 63.4 % Lymph % (Auto) 23.6 % Robertson % (Auto) 8.0 % Eos % (Auto) 3.9 % Baso % (Auto) 0.9 % Neut # (Auto) 5.18 (1.8-7.7) 10^3/u L Lymph # (Auto) 1.9 (0.8-4.8) 10^3/u L Robertson # (Auto) 0.7 (0.2-0.9) 10^3/u L Eos # (Auto) 0.3 (0.0-0.8) 10^3/u L Baso # (Auto) 0.1 (0.0-0.1) 10^3/u L Nucleated RBC % (a uto) 0 % Nucleated RBCs # 0.0 /100WBC Specimen Type Arterial Sample Site Radial, left ABG pH 7.45 (7.35-7.45) ABG pCO2 45.5 H (35-45) mmHg ABG pO2 60.7 L (80.0-100.0) mmH g ABG HCO3 31.8 H (22-26) mmol/L ABG O2 Saturation 90.0 ABG Base Excess 7.0 H (-2.0-2.0) mmol/ L Mark Test Pos A-a O2 Gradient 4.3 L (5-10) mmHg Hematocrit 33.2 L (37-47) % Hgb O2 Saturation 87.9 L (95-100) % Carboxyhemoglobin 0.5 (0.4-20.1) %THgb Methemoglobin 1.8 H (0.4-1.5) % Total Hemoglobin 10.8 L (12-16) g/dL Sodium 140.0 136 (131-143) mmol/L Potassium 3.3 L 3.6 (3.5-5.0) mmol/L Glucose 145.0 H 140 H (70-115) mg/dL Ionized Calcium 1.1 (1.1-1.4) mmol/L O2 Delivery Device Room air FiO2 21.0 % Gaming Host ID Ed Chloride 93 L (98-107) mmol/L Carbon Dioxide 29 (22-29) mmol/L Anion Gap 17.6 (5-19) BUN 33 H (8-23) mg/dL Creatinine 0.6 (0.5-0.9) mg/dL GFR Calculation 98.8 (90-130) mL/min POC Glucose (70-110) mg/dL Calculated Osmolal ity 292 (285-295) mOsm/k g Calcium 9.1 (8.5-10.5) mg/dL Total Bilirubin 0.5 (0.15-1.2) mg/dL AST 20 (0-32) U/L ALT 17 (0-33) U/L Alkaline Phosphata se 119 H (35-105) IU/L Creatine Kinase 55 (26-192) U/L Total Protein 7.4 (6.6-8.7) g/dL Albumin 3.8 (3.5-5.2) g/dL Globulin 3.6 (1.3-4.6) g/dL Urine Color (Yellow) Urine Appearance (CLEAR) Urine pH (5-7) Ur Specific Gravit y (1.005-1.030) Urine Protein (Negative) Urine Glucose (UA) (Normal) Urine Ketones (Negative) Urine Blood (Negative) Urine Nitrate (Negative) Urine Bilirubin (Negative) Urine Urobilinogen (Negative) mg/dL Ur Leukocyte Yeni ase (Negative) Serum Ketones (Negative) 03/30/20 03/30/20 03/30/20 Range/Units 16:18 16:38 16:38 WBC (4.0-10.0) 10^3/ uL RBC (4.1-5.3) 10^6/u L Hgb (11.5-15.3) g/dL Hct (37.0-47.0) % MCV (81-99) fL MCH (28.0-34.0) pg MCHC (30.0-36.0) g/dL RDW (12.1-15.1) % Plt Count (130-400) 10^3/c mm MPV (7.4-10.4) fL Neut % (Auto) % Lymph % (Auto) % Robertson % (Auto) % Eos % (Auto) % Baso % (Auto) % Neut # (Auto) (1.8-7.7) 10^3/u L Lymph # (Auto) (0.8-4.8) 10^3/u L Robertson # (Auto) (0.2-0.9) 10^3/u L Eos # (Auto) (0.0-0.8) 10^3/u L Baso # (Auto) (0.0-0.1) 10^3/u L Nucleated RBC % (a uto) % Nucleated RBCs # /100WBC Specimen Type Sample Site ABG pH (7.35-7.45) ABG pCO2 (35-45) mmHg ABG pO2 (80.0-100.0) mmH g ABG HCO3 (22-26) mmol/L ABG O2 Saturation ABG Base Excess (-2.0-2.0) mmol/ L Mark Test A-a O2 Gradient (5-10) mmHg Hematocrit (37-47) % Hgb O2 Saturation (95-100) % Carboxyhemoglobin (0.4-20.1) %THgb Methemoglobin (0.4-1.5) % Total Hemoglobin (12-16) g/dL Sodium (131-143) mmol/L Potassium (3.5-5.0) mmol/L Glucose (70-115) mg/dL Ionized Calcium (1.1-1.4) mmol/L O2 Delivery Device FiO2 % Gaming Host ID Chloride (98-107) mmol/L Carbon Dioxide (22-29) mmol/L Anion Gap (5-19) BUN (8-23) mg/dL Creatinine (0.5-0.9) mg/dL GFR Calculation (90-130) mL/min POC Glucose 149 H (70-110) mg/dL Calculated Osmolal ity (285-295) mOsm/k g Calcium (8.5-10.5) mg/dL Total Bilirubin (0.15-1.2) mg/dL AST (0-32) U/L ALT (0-33) U/L Alkaline Phosphata se (35-105) IU/L Creatine Kinase (26-192) U/L Total Protein (6.6-8.7) g/dL Albumin (3.5-5.2) g/dL Globulin (1.3-4.6) g/dL Urine Color Straw (Yellow) Urine Appearance Clear (CLEAR) Urine pH 5 (5-7) Ur Specific Gravit y 1.010 (1.005-1.030) Urine Protein Neg (Negative) Urine Glucose (UA) Norm (Normal) Urine Ketones Negative (Negative) Urine Blood Neg (Negative) Urine Nitrate Negative (Negative) Urine Bilirubin Neg (Negative) Urine Urobilinogen Norm (Negative) mg/dL Ur Leukocyte Yeni ase Negative (Negative) Serum Ketones Negative (Negative) Discharge Plan Discharge Patient Disposition: Home Clinical Impression: Anemia, Type 2 diabetes mellitus, without long-term current use of insulin, Benign essential HTN, Motion sickness, Mild dehydration Condition: Stable Prescriptions: New Zofran 4 mg tablet 4 mg PO Q6H PRN (Reason: nausea and vomiting) Qty: 20 RF: 0 No Action acetaminophen [Tylenol Arthritis Pain] 650 mg tablet extended release 1,300 mg PO Q12H RF: 0 fluticasone propionate [Flonase Allergy Relief] 50 mcg/actuation spray,suspension 2 spray INTRANASAL DAILY Qty: 15.8 RF: 0 (DME) AUTO TITRATING CPAP 8-13CM See Rx Instructions .Route .MEDSUPPLY Qty: 1 RF: 0 (DME) blood-glucose meter [Accu-Chek Carmen Plus Meter] Misc See Rx Instructions .ROUTE .MEDSUPPLY Qty: 1 RF: 0 (DME) Accu-Chek Carmen Plus test strp Strip See Rx Instructions .ROUTE .MEDSUPPLY Qty: 100 RF: 4 Ozempic 0.25 mg or 0.5 mg(2 mg/1.5 mL) pen injector 0.5 mg SUBCUT .weekly Qty: 1.5 RF: 5 [place] 5-325 mg Tablet 1 tab PO Q4H PRN (Reason: Pain) RF: 0 Aspir-81 81 mg Tablet,Delayed Release (Dr/Ec) 81 mg PO DAILY@0700 RF: 0 cyanocobalamin (vitamin B-12) 1,000 mcg/mL Solution See Rx Instructions .ROUTE .COMPLEX RF: 0 ergocalciferol (vitamin D2) 1,250 mcg (50,000 unit) Capsule 1,250 mcg PO DAILY@0700 RF: 0 guaifenesin 400 mg Tablet 400 mg PO Q4H PRN (Reason: Congestion) RF: 0 losartan 50 mg tablet 50 mg PO DAILY@1900 RF: 0 furosemide 40 mg tablet 80 mg PO DAILY@0700 RF: 0 atorvastatin 40 mg tablet 40 mg PO DAILY@0700 RF: 0 carvedilol 6.25 mg tablet 6.25 mg PO BID@0700,1900 RF: 0 sertraline 100 mg tablet 100 mg PO DAILY@0700 RF: 0 nifedipine 30 mg tablet extended release 30 mg PO BID@0700,1900 RF: 0 omeprazole 40 mg capsule,delayed release(DR/EC) 40 mg PO DAILY@0700 RF: 0 metformin 1,000 mg tablet 1,000 mg PO BID@0700,1900 RF: 0 glimepiride 4 mg tablet 4 mg PO DAILY@0700 RF: 0 nitroglycerin 0.4 mg tablet, sublingual 0.4 mg sublingual Q5M PRN (Reason: CHEST PAINS) RF: 0 hydrochlorothiazide 25 mg tablet 25 mg PO BID@0700,1900 RF: 0 potassium chloride 10 mEq tablet,ER particles/crystals 10 meq PO BID@0700,1900 RF: 0 Discharge Orders: Discharge ED (Routine); Ordered 03/30/20 Ordered By: Agustin Velazco Discharge Diet: Usual diet Discharge Activity: Increase activity as tolerated Activity Restrictions/Additional Instructions: Follow-up with your primary care physician within the next week reviewed the use of your glimepiride. 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
[2020-03-30 16:25] LABS: ABG PCO2 45.5 mmHg (35-45); ABG PH Result 7.45 (7.35-7.45); Alveolar-Arterial Oxygen Gradi 4.3 mmHg (5-10); Arterial Blood Gas Hematocrit 33.2 % (37-47); Blood Gas Allen Test Pos; Blood Gas Sample Type Arterial; Carboxyhemoglobin 0.5 %THgb (0.4-20.1); HCO3 ABG 31.8 mmol/L (22-26); HGB O2 Sat 87.9 % (95-100); Ionized Calcium Level - ABG 1.1 mmol/L (1.1-1.4); Methemoglobin 1.8 % (0.4-1.5); PO2 ABG 60.7 mmHg (80.0-100.0); Potassium Level - ABG 3.3 mmol/L (3.5-5.0); Total Hemoglobin 10.8 g/dL (12-16)
[2020-03-30 16:26] LABS: Blood Gas Operator Identificat ED; Blood Gas Sample Site Radial, left; Oxygen Device ROOM AIR
[2020-03-30 16:32] LABS: Basophils # 0.1 10^3/uL (0.0-0.1); Basophils % 0.9 %; Eosinophils # 0.3 10^3/uL (0.0-0.8); Eosinophils % 3.9 %; Hematocrit 36.7 % (37.0-47.0); Hemoglobin 10.6 g/dL (11.5-15.3); Lymphocytes # 1.9 10^3/uL (0.8-4.8); Lymphocytes % 23.6 %; Mean Corpuscular HGB Conc 28.9 g/dL (30.0-36.0); Mean Corpuscular Hemoglobin 23.3 pg (28.0-34.0); Mean Corpuscular Volume 80.8 fL (81-99); Mean Platelet Volume 10.3 fL (7.4-10.4); Monocytes # 0.7 10^3/uL (0.2-0.9); Neutrophils # 5.18 10^3/uL (1.8-7.7); Neutrophils % 63.4 %; Nucleated Red Blood Cells % 0 %; Platelet Count 317 10^3/cmm (130-400); Red Blood Count 4.54 10^6/uL (4.1-5.3); Red Cell Distribution Width 16.5 % (12.1-15.1); White Blood Count 8.2 10^3/uL (4.0-10.0)
[2020-03-30 16:38] LABS: Ketone (Acetest) Serum Negative (Negative)
[2020-03-30 16:44] LABS: Glucose Point of Care 149 mg/dL (70-110)
[2020-03-30 16:47] LABS: Alanine Aminotransferase 17 U/L (0-33); Albumin Level 3.8 g/dL (3.5-5.2); Alkaline Phosphatase 119 IU/L (35-105); Aspartate Amino Transferase 20 U/L (0-32); Blood Urea Nitrogen 33 mg/dL (8-23); Calcium 9.1 mg/dL (8.5-10.5); Carbon Dioxide 29 mmol/L (22-29); Chloride 93 mmol/L (98-107); Creatine Phosphokinase 55 U/L (26-192); Globulin 3.6 g/dL (1.3-4.6); Glomerular Filtration Rate 98.8 mL/min (90-130); Glucose 140 mg/dL (65-115); Osmolality Calculated 292 mOsm/kg (285-295); Sodium 136 mmol/L (136-145); Total Bilirubin 0.5 mg/dL (0.15-1.2); Total Protein 7.4 g/dL (6.6-8.7)
[2020-03-30 16:52] LABS: Add Urine Microscopic? NO
[2020-03-30 17:01] VITALS: BP 163/64; PULSE 53; RESP 18; O2SAT 92
[2020-03-30 17:09] LABS: Anion Gap 17.6 (5-19); Potassium 3.6 mmol/L (3.5-5.1)
[2020-03-30] MEDS: ondansetron 2 mg/ML SDV 2 mL 4 MG IVP (17:12)
[2020-03-30 17:30] LABS: Bilirubin Urine Neg (Negative); Blood Urine Neg (Negative); Glucose Urine UA Norm (Normal); Ketones Urine Negative (Negative); Leukocyte Esterase Urine Negative (Negative); Nitrate Urine Negative (Negative); Protein Urine Neg (Negative); Urine Appearance Clear (CLEAR); Urine Color Straw (Yellow); Urobilinogen Urine Norm (Negative); pH Urine 5 (5-7)
[2020-03-30] MEDS: sodium chloride 0.9% 1,000 ML 999 ML IV (17:47)
[2020-03-30 17:50] VITALS: BP 178/68; PULSE 60; RESP 18; O2SAT 91
[2020-03-30] MEDS: ondansetron 4 MG Tablet PO (18:39)
[2020-03-30 18:44] VITALS: BP 203/75; PULSE 62; RESP 20; O2SAT 92
== END 2020-03-30 18:46 | disposition home or self-care (01) ==
PROVIDERS: Emergency Provider Family Medicine
DX: D64.9 Anemia, unspecified (principal); T75.3XXA Motion sickness, initial encounter; E86.0 Dehydration; E11.9 Type 2 diabetes mellitus without complications; I10 Essential (primary) hypertension; J44.9 Chronic obstructive pulmonary disease, unspecified; E78.5 Hyperlipidemia, unspecified; I25.2 Old myocardial infarction; Z87.891 Personal history of nicotine dependence; Z79.84 Long term (current) use of oral hypoglycemic drugs; Z79.82 Long term (current) use of aspirin
CPT/HCPCS: 12345; 36416; 36600; 71045; 80051; 80053; 81003; 82009; 82330; 82550; 82805; 82962; 83605; 85025; 96361; 96374; 99282; 99283; J2405; J7030; Q0162

== ENCOUNTER → 2020-05-13 10:48 | Outpatient (BNVA) | payer MEDICARE, SELFPAY | PROVIDERS: Visit Provider Family Medicine | DX: E11.59 Type 2 diabetes mellitus with other circulatory complications (principal); I10 Essential (primary) hypertension | CPT/HCPCS: 80053; 83036; 85025 ==

== ENCOUNTER → 2020-05-14 12:17 | Outpatient (BNVA) | payer MEDICARE, SELFPAY | PROVIDERS: Visit Provider Family Medicine | DX: E11.59 Type 2 diabetes mellitus with other circulatory complications (principal); I10 Essential (primary) hypertension; R60.0 Localized edema; D50.9 Iron deficiency anemia, unspecified; Z89.511 Acquired absence of right leg below knee | CPT/HCPCS: 82728; 83550 ==

== ENCOUNTER 2020-05-27 17:01 | Outpatient (CLI) | payer MEDICARE, MEDICAID, SELFPAY ==
[2020-05-27 17:36] LABS: Ferritin 21 ng/mL (15-150); Iron 30 ug/dL (37-145); Percent Saturation 7.5 % (20-50); Total Iron Binding Capacity 400 mcg/dl; Unsaturated Iron Binding 370 ug/dL (112-347)
== END 2020-05-27 17:02 | disposition home or self-care (01) ==
LOC: LAB 17:02
PROVIDERS: PCP Family Medicine; Visit Provider Family Medicine
DX: D50.9 Iron deficiency anemia, unspecified (principal)
CPT/HCPCS: 36415; 82728; 83540; 83550

== ENCOUNTER 2020-07-29 | Outpatient (CLI) | payer MEDICARE, MEDICAID, SELFPAY | END 2020-07-29 00:01 | disposition home or self-care (01) | LOC: SLEEP 07-21 09:39 | PROVIDERS: PCP Family Medicine; Visit Provider Family Medicine | DX: I10 Essential (primary) hypertension (principal) | CPT/HCPCS: 80053; 83735 ==

== ENCOUNTER → 2020-10-28 12:05 | Outpatient (BNVA) | payer MEDICARE, MEDICAID, SELFPAY | PROVIDERS: PCP Family Medicine; Visit Provider Family Medicine | DX: E78.2 Mixed hyperlipidemia (principal); E11.59 Type 2 diabetes mellitus with other circulatory complications; E11.9 Type 2 diabetes mellitus without complications; I10 Essential (primary) hypertension | CPT/HCPCS: 80053; 80061; 82043; 83036 ==

== ENCOUNTER 2021-02-03 09:59 | Outpatient (CLI) | payer MEDICARE, MEDICAID, SELFPAY | END 2021-02-03 10:00 | disposition home or self-care (01) | LOC: WOUND 10:01 | PROVIDERS: PCP Family Medicine; Visit Provider Emergency Medicine | DX: Z87.891 Personal history of nicotine dependence; I10 Essential (primary) hypertension; E11.9 Type 2 diabetes mellitus without complications; J44.9 Chronic obstructive pulmonary disease, unspecified; Z89.511 Acquired absence of right leg below knee | CPT/HCPCS: G0463 ==

== ENCOUNTER → 2021-05-12 10:45 | Outpatient (BNVA) | payer MEDICARE, MEDICAID, SELFPAY | PROVIDERS: PCP Family Medicine; Visit Provider Family Medicine | DX: E11.59 Type 2 diabetes mellitus with other circulatory complications (principal); E78.2 Mixed hyperlipidemia; I10 Essential (primary) hypertension; J44.9 Chronic obstructive pulmonary disease, unspecified | CPT/HCPCS: 80053; 80061; 83036; 85025 ==

== ENCOUNTER → 2021-05-26 10:07 | Outpatient (BNVA) | payer MEDICARE, SELFPAY | PROVIDERS: PCP Family Medicine; Visit Provider Nurse Practitioner Family | DX: I10 Essential (primary) hypertension (principal); Z87.891 Personal history of nicotine dependence | CPT/HCPCS: 99213 ==

== ENCOUNTER 2021-10-06 15:49 | Outpatient (CLI) | payer MEDICARE, MEDICAID, SELFPAY ==
--- NOTE | 2021-10-06 16:07 | XR_ITS ---
WS: [id number] Exam: XR foot LT min 3V* [id number] Date/Time of Exam: 10/06/2021 4:16 PM Reason For Exam: left foot pain No acute fracture or dislocation. Pronounced bunion deformity. Hammertoe deformity of the second, thi rd and fourth toes. Degenerative changes and bony sclerosis noted in the tarsal bones and proximal me tatarsals. Hypertrophic bone spurring seen along the dorsal margin of the tarsal bones. Old lower fib ular fracture. XR/XR foot LT min 3V* [id number] IMPRESSION: 1. Prominent bunion deformity with hammertoes as detailed above. 2. No acute fracture. 3. Degenerative change and bony sclerosis of the tarsal bones and proximal meta tarsals. This might be seen with the Charcot's neuropathy.
--- NOTE | 2021-10-06 16:07 | XR_ITS ---
WS: [id number] Exam: XR tibia fibula LT 2V [id number] Date/Time of Exam: 10/06/2021 4:16 PM Reason For Exam: left leg pain No fracture or dislocation. Degenerative change and chondrocalcinosis noted at the knee. Soft tissues are unremarkable. Old healed lower fibular fracture. XR/XR tibia fibula LT 2V [id number] IMPRESSION: 1. No acute fracture noted.
== END 2021-10-06 15:50 | disposition home or self-care (01) ==
LOC: RAD 15:53
PROVIDERS: PCP Family Medicine; Visit Provider Family Medicine
DX: M79.662 Pain in left lower leg (principal); M79.672 Pain in left foot; M21.612 Bunion of left foot; E11.59 Type 2 diabetes mellitus with other circulatory complications
CPT/HCPCS: 73590; 73630; 80053; 83036

== ENCOUNTER → 2021-12-01 10:29 | Outpatient (BNVA) | payer MEDICARE, MEDICAID, SELFPAY | PROVIDERS: PCP Family Medicine; Visit Provider Internal Medicine Cardiovascular Disease | DX: I10 Essential (primary) hypertension (principal); G47.33 Obstructive sleep apnea (adult) (pediatric); Z87.891 Personal history of nicotine dependence; E78.2 Mixed hyperlipidemia; E78.1 Pure hyperglyceridemia; E11.59 Type 2 diabetes mellitus with other circulatory complications; Z79.84 Long term (current) use of oral hypoglycemic drugs | CPT/HCPCS: 99214 ==

== ENCOUNTER → 2022-04-06 10:41 | Outpatient (BNVA) | payer MEDICARE, MEDICAID, SELFPAY | PROVIDERS: PCP Family Medicine; Visit Provider Family Medicine | DX: I10 Essential (primary) hypertension (principal); E78.2 Mixed hyperlipidemia; E11.59 Type 2 diabetes mellitus with other circulatory complications; J01.90 Acute sinusitis, unspecified; B96.89 Other specified bacterial agents as the cause of diseases classified elsewhere | CPT/HCPCS: 80053; 80061; 83036 ==

== ENCOUNTER 2022-05-23 13:39 | Emergency (ER) | payer MEDICARE, MEDICAID, SELFPAY ==
[2022-05-23 13:46] VITALS: BP 158/72; PULSE 67; RESP 16; TEMP 36.7; O2SAT 95
--- NOTE | 2022-05-23 14:02 | XRR_ITS ---
PROCEDURE INFORMATION: Exam: XR Chest Exam date and time: 05/23/2022 2:06 PM Age: 72 years old Clinical indication: Cough; Additional info: Cough, uri symptoms, copd TECHNIQUE: Imaging protocol: Radiologic exam of the chest. Views: 1 view. COMPARISON: CR XR chest 1V portable [id number] 03/30/2020 5:06 PM FINDINGS: Lungs: Unremarkable. No consolidation. Pleural spaces: Unremarkable. No pleural effusion. No pneumothorax. Heart/Mediastinum: Unremarkable. No cardiomegaly. Bones/joints: Unremarkable. XR/XR chest 1V portable [id number] IMPRESSION: No acute findings.
--- NOTE | 2022-05-23 14:04 | ED_ITS ---
HPI - URI/Sore Throat General: Chief Complaint: Upper Respiratory Infection Stated Complaint: cough, SOB Time Seen by Provider: 05/23/22 13:54 History of Present Illness: Patient presents to the ER with complaints of cough cold shortness of breath wheezing. Patient says this is her third round of similar stuff she just got over the second round about 4 to 5 days ago and then it started all over again. Patient has not been recently swabbed for COVID nor had a recent chest x-ray MD elicited complaint: cough Onset (ago): week(s) Consistency: constant and progressively worsening Severity: moderate Description of mucous: yellow Able to tolerate fluids by mouth: Yes Exacerbating factors: deep breaths Relieving factors: nothing Associated symptoms: Reports chills, congestion, cough and short of breath; Deny abdominal pain, chest pain, diarrhea, headache(s), nausea or vomiting Treatments prior to arrival: other (Routine inhalers) Review of Systems General: Reports: 10 or more systems reviewed and unremarkable except in HPI and below Const: Reports: chills and body aches Eyes: Denies: change in vision or blurry vision ENMT: Denies: throat pain or odynophagia Card: Denies: chest pain, palpitations or irregular heart rhythm Resp: Reports: dyspnea, non-productive cough and wheezing GI: Denies: abdominal pain, nausea, vomiting or diarrhea : Denies: flank pain, difficulty voiding, dysuria or urinary frequency Musc: Denies: neck pain, back pain, extremity pain or extremity swelling Skin/Breast: Denies: rash, pruritus, erythema or photosensitivity Neuro: Denies: headache(s), numbness in extremities or weakness in extremities Psych: Denies: anxiety, depression, mood swings or panic attacks Endo: Denies: polyuria, polydipsia or tired all the time Casa/Lymph: Denies: easy bruising, easy bleeding or petechiae All/Imm: Denies: urticaria, throat swelling or tongue swelling PFSH ED PFSH: Medical History Amputation stump injury Benign essential HTN COPD (chronic obstructive pulmonary disease) Diabetes mellitus type 2 in nonobese Hyperlipidemia Hypertriglyceridemia Microcytic hypochromic anemia Obstructive sleep apnea [place] (myocardial infarction) Feb 2019 Type 2 diabetes mellitus, without long-term current use of insulin Surgical History History of below knee amputation History of cholecystectomy History of laparoscopic adjustable gastric banding Family History Other CAD (coronary artery disease) Cancer Diabetes Social History Smoking and tobacco status: former smoker Quit status (tobacco): has quit using tobacco Year quit tobacco: 1991 Former quit date comment: PPD x Second hand smoke exposure: No Alcohol intake: never Lives independently: Yes Household members: none Housing: House Marital status: / Number of children: 5 Number of grandchildren: 10 Highest education level completed: 6th Grade service: No Current occupational status: retired Current gender identity: Female Physical Exam Const: COMMON NORMALS: no acute distress, average body habitus, patient oriented x3, no limitations, healthy appearing, alert and well nourished HENMT: COMMON NORMALS: normocephalic, atraumatic and hearing grossly normal bilaterally HEAD & SCALP: normocephalic and atraumatic Eye: COMMON NORMALS: Equal, round and reactive pupils present, EOMs intact bilaterally and conjunctivae normal CONJUNCTIVA: Yes conjunctivae normal PUPIL: Yes Equal, round and reactive pupils present Neck/C-Spine: COMMON NORMALS: full ROM, no lymphadenopathy, supple, no meningeal signs, no JVD and Thyroid normal THYROID: Thyroid normal Chest: COMMONS NORMALS: normal inspection of the chest Resp: COMMON NORMALS: normal respiratory effort and No retractions AUSCULTATION: wheezes and diminished lung sounds Cardio: COMMON NORMALS: no JVD, regular rate, regular rhythm, S1 normal heart sound present and S2 normal heart sound present RATE: regular rate RHYTHM: regular rhythm HEART SOUNDS: S1 normal heart sound present and S2 normal heart sound present GI: COMMON NORMALS: Normal to inspection, nondistended, normoactive bowel sounds present, Soft to palpation, non-tender and No hepatosplenomegaly present PALPATION: Yes Soft to palpation and Yes No hepatosplenomegaly present : COMMON NORMALS: Yes no CVA tenderness BLADDER/KIDNEY EXAM: Yes no CVA tenderness Back/Pelvis: COMMON NORMALS: no CVA tenderness Neuro: COMMON NORMALS: patient oriented x3 SENSORIUM/ORIENTATION: Yes alert MENINGEAL SIGNS: Yes no meningeal signs Psych: COMMON NORMALS: mental status grossly normal, Normal thought process present, cooperative, normal affect and speech normal SPEECH: Yes normal speech THOUGHT PROCESS: Normal thought process present Course Vital Signs: Vital signs: Vital Signs Temperature 98.0 F 05/23/22 13:46 Pulse Rate 64 05/23/22 14:24 Respiratory Rate 16 05/23/22 14:24 Blood Pressure 154/76 05/23/22 14:24 Pulse Oximetry 97 05/23/22 14:24 Oxygen Delivery Me thod 05/23/22 14:24 MDM - URI/Sore Throat Medical Decision Making Patient states this is her third round of very similar symptoms. Patient has not taken antibiotics for these. Patient does have a extensive history of COPD and the use of multiple daily inhalers and nebulizers. Patients last bout ended 3 to 4 days ago where she had 3-4 good days until this started up again. Patient is refusing to have the nasal swab performed at this time. Patient is allowing us to do a chest x-ray. Chest x-ray is negative and without the nose swab results patient will be discharged home on steroids with a diagnosis of upper respiratory tract infection and wheezing. Patient is to follow-up with her primary care physician in 1 week if not significantly better. Differential Diagnosis Likely upper respiratory infection, viral infection and bronchitis Lab Data I reviewed the patient's lab results. Radiology Impressions Chest X-Ray 05/23/22 14:02 IMPRESSION: No acute findings. Discharge Plan Discharge Patient Disposition: Home Clinical Impression: Viral upper respiratory tract infection, COPD (chronic obstructive pulmonary disease), Wheezing Condition: Stable Prescriptions: New prednisone 20 mg tablet 20 mg PO BID 7 Days Qty: 14 0RF No Action clonidine HCl 0.1 mg tablet 0.1 mg PO TID PRN (Reason: hypertensive emergency) Rx Instructions: For BP > 160/90 mm Hg ondansetron HCl 4 mg tablet 4 mg PO Q8H PRN (Reason: nausea and vomiting) Qty: 10 0RF Mucinex 1,200 mg tablet extended release 12hr 1,200 mg PO BID PRN albuterol sulfate 90 mcg/actuation HFA aerosol inhaler 1 inh inhalation QID PRN (Reason: shortness of breath or wheezing) Qty: 6.7 3RF ascorbic acid-elderberry fruit [Airborne (elderberry)] 100-50 mg tablet,chewable PO DAILY (DME) AUTO TITRATING CPAP 8-13CM See Rx Instructions .Route .MEDSUPPLY Qty: 1 0RF Rx Instructions: As directed amoxicillin-pot clavulanate 875-125 mg tablet 1 tab PO BID Qty: 14 0RF silver sulfadiazine [Silvadene] 1 % cream 1 applic topical BID Qty: 50 0RF Rx Instructions: apply a 1.5 mm thickness (DME) Replacement armrests for wheelchair See Rx Instructions .Route .MEDSUPPLY Qty: 1 0RF Rx Instructions: As directed (DME) standup rollator See Rx Instructions .Route .MEDSUPPLY Qty: 1 0RF Rx Instructions: 99 months (DME) CPAP mask and tubing See Rx Instructions .Route .MEDSUPPLY Qty: 1 0RF Rx Instructions: As directed methylprednisolone [Medrol ([place])] 4 mg tablets,dose pack See Rx Instructions PO PER PKG DIR Qty: 21 0RF Rx Instructions: [place] [place] blood-glucose meter [OneTouch Ultra2 Meter] Kit See Rx Instructions .ROUTE .MEDSUPPLY Qty: 1 0RF Rx Instructions: As directed [place] [place] HAND CONTROLS FOR VEHICLE See Rx Instructions .Route .MEDSUPPLY Qty: 1 0RF Rx Instructions: As directed [place] [place] OneTouch Ultra Blue Test Strip Strip See Rx Instructions .ROUTE .MEDSUPPLY Qty: 100 3RF Rx Instructions: ONCE DAILY DAY SUPPLY ferrous sulfate [Feosol] 325 mg (65 mg iron) tablet 325 mg PO BID 90 Days Qty: 180 2RF [place] [place] Nebulizer and supplies See Rx Instructions .Route .MEDSUPPLY Qty: 1 0RF Rx Instructions: As directed nitroglycerin 0.4 mg tablet, sublingual 0.4 mg sublingual Q5M PRN (Reason: CHEST PAINS) Qty: 10 0RF Rx Instructions: Take 1 tablet sublingual for chest pain 5 mins apart up to a maximum of 3 doses. Ozempic 0.25 mg or 0.5 mg(2 mg/1.5 mL) pen injector See Rx Instructions .ROUTE .COMPLEX Qty: 1.5 5RF Dose Instruction: INJECT 0.5 MG (0.4 ML) UNDER SKIN WEEKLY ON WEDNESDAY Rx Instructions: INJECT 0.5 MG (0.4 ML) UNDER SKIN WEEKLY ON WEDNESDAY carvedilol 6.25 mg tablet See Rx Instructions .ROUTE .COMPLEX Qty: 180 1RF Dose Instruction: TAKE ONE TABLET BY MOUTH TWICE DAILY Rx Instructions: TAKE ONE TABLET BY MOUTH TWICE DAILY meloxicam 7.5 mg tablet See Rx Instructions .ROUTE .COMPLEX Qty: 90 2RF Dose Instruction: TAKE ONE TABLET BY MOUTH DAILY Rx Instructions: TAKE ONE TABLET BY MOUTH DAILY hydrochlorothiazide 50 mg tablet See Rx Instructions .ROUTE .COMPLEX Qty: 180 2RF Dose Instruction: TAKE ONE TABLET BY MOUTH TWICE DAILY AT 7:00AM AND 7:00PM` Rx Instructions: TAKE ONE TABLET BY MOUTH TWICE DAILY AT 7:00AM AND 7:00PM` icosapent ethyl [Vascepa] 1 gram capsule See Rx Instructions .ROUTE .COMPLEX Qty: 120 2RF Dose Instruction: TAKE TWO CAPSULES BY MOUTH TWICE DAILY Rx Instructions: TAKE TWO CAPSULES BY MOUTH TWICE DAILY nifedipine 30 mg tablet extended release 30 mg PO .COMPLEX 90 Days Qty: 180 2RF Rx Instructions: 30 mg PO Take 1 in morning and 2 in evening; losartan 100 mg tablet 100 mg PO DAILY 90 Days Qty: 90 3RF omeprazole 40 mg capsule,delayed release(DR/EC) 40 mg PO DAILY 90 Days Qty: 90 3RF potassium chloride 10 mEq tablet,ER particles/crystals 20 meq PO DAILY 90 Days Qty: 180 3RF sertraline 100 mg tablet 100 mg PO DAILY@0700 90 Days Qty: 90 0RF fluticasone propionate [Flonase Allergy Relief] 50 mcg/actuation spray,suspension 2 spray INTRANASAL DAILY Qty: 15.8 0RF Rx Instructions: administer into each nostril Trelegy Ellipta 100-62.5-25 mcg blister with device 1 inh inhalation Q24H Qty: 180 1RF furosemide 40 mg tablet 40 mg PO DAILY@0700 90 Days Qty: 90 1RF metformin 850 mg tablet 850 mg PO BID 90 Days Qty: 180 1RF Trulicity 0.75 mg/0.5 mL pen injector 0.75 mg SUBCUT .weekly Qty: 2 2RF albuterol sulfate 2.5 mg /3 mL (0.083 %) solution for nebulization See Rx Instructions .ROUTE .COMPLEX Qty: 120 11RF Dose Instruction: USE 1 VIAL IN NEBULIZER 4 TIMES DAILY Rx Instructions: USE 1 VIAL IN NEBULIZER 4 TIMES DAILY fenofibrate nanocrystallized 145 mg tablet See Rx Instructions .ROUTE .COMPLEX Qty: 90 1RF Dose Instruction: TAKE ONE TABLET BY MOUTH DAILY Rx Instructions: TAKE ONE TABLET BY MOUTH DAILY atorvastatin 40 mg tablet See Rx Instructions .ROUTE .COMPLEX Qty: 90 1RF Dose Instruction: TAKE ONE TABLET BY MOUTH DAILY AT 7:00AM Rx Instructions: TAKE ONE TABLET BY MOUTH DAILY AT 7:00AM Aspir-81 81 mg Tablet,Delayed Release (Dr/Ec) 81 mg PO DAILY@0700 Discharge Orders: Discharge ED (Routine); Ordered 05/23/22 Ordered By: Mike Hughes Referrals: Argenis Costa DO [Primary Care Provider] - 1 week Discharge Activity: Resume usual activity Patient Instructions: Upper Respiratory Infection (ED), COPD (Chronic Obstructive Pulmonary Disease) (ED) Coding Level of Care Code ED Utilities Operator for Marychuy Gunn
[2022-05-23 14:24] VITALS: BP 154/76; PULSE 64; RESP 16; O2SAT 97
[2022-05-23 15:43] VITALS: BP 154/76; PULSE 64; RESP 16; O2SAT 97
== END 2022-05-23 15:47 | disposition home or self-care (01) ==
PROVIDERS: Emergency Provider Emergency Medicine; PCP Family Medicine
DX: J06.9 Acute upper respiratory infection, unspecified (principal); E11.9 Type 2 diabetes mellitus without complications; I10 Essential (primary) hypertension; E78.5 Hyperlipidemia, unspecified; E78.1 Pure hyperglyceridemia; J44.9 Chronic obstructive pulmonary disease, unspecified; G47.33 Obstructive sleep apnea (adult) (pediatric); I25.2 Old myocardial infarction; Z87.891 Personal history of nicotine dependence; Z79.84 Long term (current) use of oral hypoglycemic drugs; Z79.85 Long-term (current) use of injectable non-insulin antidiabetic drugs; Z79.82 Long term (current) use of aspirin; Z79.51 Long term (current) use of inhaled steroids
CPT/HCPCS: 71045; 99283

== ENCOUNTER 2022-07-08 10:28 | Outpatient (CLI) | payer MEDICARE, MEDICAID, SELFPAY ==
--- NOTE | 2022-07-08 10:41 | XR_ITS ---
WS: [id number] Exam: XR lumbar spine 2-3V* [id number] Date/Time of Exam: 07/08/2022 10:41 AM Reason For Exam: LUMBAR PAIN Comparison 01/30/2008. No acute fracture or dislocation. Degenerative vacuum disc at L5-S1. Posterior elements are intact. N o significant scoliosis. Osteopenia. Aortoiliac atherosclerosis. Facet DJD at L4-5 and L5-S1. XR/XR lumbar spine 2-3V* [id number] IMPRESSION: 1. Degenerative changes as detailed above. 2. No fracture or malalignment.
== END 2022-07-08 10:29 | disposition home or self-care (01) ==
LOC: RAD 10:33
PROVIDERS: PCP Family Medicine; Visit Provider Nurse Practitioner Family
DX: M54.50 Low back pain, unspecified (principal)
CPT/HCPCS: 72100

== ENCOUNTER → 2022-07-20 11:07 | Outpatient (BNVA) | payer MEDICARE, MEDICAID, SELFPAY | PROVIDERS: PCP Family Medicine; Visit Provider Family Medicine | DX: E11.59 Type 2 diabetes mellitus with other circulatory complications (principal); J44.1 Chronic obstructive pulmonary disease with (acute) exacerbation | CPT/HCPCS: 80053; 83036 ==

== ENCOUNTER → 2022-09-16 10:19 | Outpatient (BNVA) | payer MEDICARE, MEDICAID, SELFPAY | PROVIDERS: PCP Family Medicine; Visit Provider Nurse Practitioner Family | DX: I10 Essential (primary) hypertension (principal); Z87.891 Personal history of nicotine dependence | CPT/HCPCS: 99214 ==

== ENCOUNTER → 2022-09-28 10:34 | Outpatient (BNVA) | payer MEDICARE, MEDICAID, SELFPAY | PROVIDERS: PCP Family Medicine; Visit Provider Family Medicine | DX: E11.59 Type 2 diabetes mellitus with other circulatory complications (principal) | CPT/HCPCS: 85025 ==

== ENCOUNTER → 2023-01-08 12:17 | Outpatient (BNVA) | payer MEDICARE, MEDICAID, SELFPAY | PROVIDERS: PCP Family Medicine; Visit Provider Family Medicine | DX: G31.84 Mild cognitive impairment of uncertain or unknown etiology (principal); E11.59 Type 2 diabetes mellitus with other circulatory complications | CPT/HCPCS: 80053; 82607; 83036; 84443 ==

== ENCOUNTER → 2023-03-04 13:25 | Outpatient (BNVA) | payer MEDICARE, MEDICAID, SELFPAY | PROVIDERS: PCP Family Medicine; Visit Provider Family Medicine | DX: R30.0 Dysuria (principal) | CPT/HCPCS: 81000; 87077; 87086; 87184 ==

== ENCOUNTER → 2023-06-17 10:30 | Outpatient (BNVA) | payer MEDICARE, MEDICAID, SELFPAY | PROVIDERS: PCP Family Medicine; Visit Provider Family Medicine | DX: E53.8 Deficiency of other specified B group vitamins (principal); D50.9 Iron deficiency anemia, unspecified; E11.59 Type 2 diabetes mellitus with other circulatory complications; R53.83 Other fatigue | CPT/HCPCS: 80053; 80061; 82043; 82607; 83036; 83721; 84443; 85025 ==

== ENCOUNTER → 2023-11-10 09:18 | Outpatient (BNVA) | payer MEDICARE, SELFPAY | PROVIDERS: PCP Family Medicine; Visit Provider Nurse Practitioner Family | DX: E11.59 Type 2 diabetes mellitus with other circulatory complications (principal); R30.0 Dysuria; I10 Essential (primary) hypertension | CPT/HCPCS: 81000; 82962 ==

== ENCOUNTER → 2023-12-02 09:56 | Outpatient (BNVA) | payer MEDICARE, SELFPAY | PROVIDERS: PCP Family Medicine; Visit Provider Family Medicine | DX: E11.59 Type 2 diabetes mellitus with other circulatory complications (principal) | CPT/HCPCS: 80053; 83036 ==

== ENCOUNTER → 2023-12-17 08:45 | Outpatient (BNVA) | payer MEDICARE, SELFPAY | PROVIDERS: PCP Family Medicine; Visit Provider Internal Medicine Cardiovascular Disease | DX: I10 Essential (primary) hypertension (principal); Z87.891 Personal history of nicotine dependence | CPT/HCPCS: 99213 ==

== ENCOUNTER → 2024-05-25 10:32 | Outpatient (BNVA) | payer MEDICARE, SELFPAY | PROVIDERS: PCP Family Medicine; Visit Provider Family Medicine | DX: E11.59 Type 2 diabetes mellitus with other circulatory complications (principal) | CPT/HCPCS: 80053; 80061; 83036; 85025 ==

== ENCOUNTER → 2024-06-23 10:06 | Outpatient (BNVA) | payer MEDICARE, SELFPAY | PROVIDERS: PCP Family Medicine; Visit Provider Internal Medicine Cardiovascular Disease | DX: I11.0 Hypertensive heart disease with heart failure (principal); I50.9 Heart failure, unspecified; I73.9 Peripheral vascular disease, unspecified; Z79.82 Long term (current) use of aspirin; I25.2 Old myocardial infarction; Z87.891 Personal history of nicotine dependence; R07.9 Chest pain, unspecified; R06.02 Shortness of breath | CPT/HCPCS: 99214 ==

== ENCOUNTER 2024-07-27 10:11 | Outpatient (CLI) | payer MEDICARE, SELFPAY ==
--- NOTE | 2024-07-27 11:00 | USCV_ITS ---
Marifer Loza Age: 74 Gender: F : 1950 Exam Date: 07/27/2024 10:33 Ordering Phys: Stephany Saldivar MD ([email or web address]) Technologist: Exam Location: [facility] [place] Indication: sob cp hxof mi BP: 140 / 90 HR: 76 Rhythm: Sinus Technical Quality: Adequate MEASUREMENTS (Male / Female) Normal Values 2D ECHO LV Diastolic Diameter PLAX 4.9 cm 4.2 - 5.9 / 3.9 - 5.3 cm IVS Diastolic Thickness 1.6 cm 0.6 - 1.0 / 0.6 - 0.9 cm IVS Systolic Thickness 2.1 cm LVPW Diastolic Thickness 1.6 cm 0.6 - 1.0 / 0.6 - 0.9 cm LVPW Systolic Thickness 2.1 cm LVOT Diameter 2.2 cm LV Ejection Fraction 2D Teich 65.3 % LV Ejection Fraction MOD 4C 62.8 % LV Ejection Fraction MOD 2C 54.3 % LV Ejection Fraction 2C AL 54.1 % LA Diameter 5.8 cm RA Systolic Volume 4C AL 67.2 ml RA Systolic Volume 4C MOD 64.4 ml Aorta at Sinotubular Diameter 3.0 cm M-MODE LA Ao Ratio MM 1.9 AV Cusp Separation MM 2.0 cm DOPPLER AV Peak Velocity 155.0 cm/s AV Area Cont Eq vti 1.8 cm squared AV Area Cont Eq pk 1.1 cm squared MV Peak Velocity 170.0 cm/s MV Area PHT 3.9 cm squared Mitral E to A Ratio 3.7 TV Peak Velocity 227.0 cm/s TR Peak Velocity 327.0 cm/s TR Peak Gradient 42.8 mmHg TV Peak E Velocity 114.0 cm/s PV Peak Velocity 111.0 cm/s FINDINGS Left Ventricle Normal left ventricular size, systolic function and wall thickness, with no regional wall motion abnormalities. Left ventricular ejection fraction is estimated at 60 %. Grade IV/IV diastolic dysfunction (irreversible restrictive filling pattern), severely elevated filling pressures. Right Ventricle The right ventricle is normal in size and function. Right Atrium The right atrium is normal in size. Left Atrium Severely increased left atrial size. Mitral Valve Mildly thickened mitral valve. Mild mitral annular calcification. No mitral valve stenosis. Moderate mitral valve regurgitation. Aortic Valve Structurally normal aortic valve without significant sclerosis or stenosis. There is no aortic regurgitation. Tricuspid Valve Mild tricuspid valve regurgitation. Pulmonic Valve Structurally normal pulmonic valve without significant stenosis. There is no pulmonic regurgitation. Pericardium Normal pericardium without effusion. Aorta Normal ascending aorta dimension. IVC The inferior vena cava appears normal. CONCLUSIONS Normal left ventricular size, systolic function and wall thickness, with no regional wall motion abnormalities. Left ventricular ejection fraction is estimated at 60 %. Grade IV/IV diastolic dysfunction (irreversible restrictive filling pattern), severely elevated filling pressures. Severely increased left atrial size. Mildly thickened mitral valve. Mild mitral annular calcification. No mitral valve stenosis. Moderate mitral valve regurgitation. Mild tricuspid valve regurgitation. There is no pericardial effusion. Right atrial pressure is around 5 mm of mercury. Stephany Saldivar MD (Electronically Signed) Final Date: 05 Aug 2024 17:18 S
== END 2024-07-27 10:12 | disposition home or self-care (01) ==
LOC: RAD 10:14
PROVIDERS: PCP Family Medicine; Visit Provider Internal Medicine Cardiovascular Disease
DX: R07.9 Chest pain, unspecified (principal); R06.02 Shortness of breath; R93.1 Abnormal findings on diagnostic imaging of heart and coronary circulation; I34.81 Nonrheumatic mitral (valve) annulus calcification; I34.0 Nonrheumatic mitral (valve) insufficiency; I07.1 Rheumatic tricuspid insufficiency
CPT/HCPCS: 93306

== ENCOUNTER → 2024-10-20 08:23 | Outpatient (BNVA) | payer MEDICARE, SELFPAY | PROVIDERS: PCP Family Medicine; Visit Provider Family Medicine | DX: R30.0 Dysuria (principal) | CPT/HCPCS: 81000; 87086 ==

== ENCOUNTER → 2024-11-07 11:18 | Outpatient (BNVA) | payer MEDICARE, SELFPAY | PROVIDERS: PCP Family Medicine | DX: R39.9 Unspecified symptoms and signs involving the genitourinary system (principal) | CPT/HCPCS: 81000; 87086 ==

== ENCOUNTER 2024-11-14 21:10 | Inpatient (IN) | payer MEDICARE, SELFPAY ==
[2024-11-14] VITALS (18 sets, daily range): BP systolic 112–191; BP diastolic 58–115; PULSE 70–94; RESP 14–21; TEMP 35.2; O2SAT 92–100; BMI 35.9
--- NOTE | 2024-11-14 21:12 | XRR_ITS ---
PROCEDURE INFORMATION: Exam: XR Chest Exam date and time: 11/14/2024 9:12 PM Age: 74 years old Clinical indication: Device placement; Ett placement (vent status); Og tube and ett placement; Additional info: Sob/ post code TECHNIQUE: Imaging protocol: Radiologic exam of the chest. Views: 1 view. COMPARISON: CR XR chest 1V portable [id number] 05/23/2022 2:06 PM FINDINGS: Tubes, catheters and devices: There is an endotracheal tube 4.7 cm from johann. There is a nasogastric tube that is terminating in the distal esophagus. Lungs: There are findings suspicious for pulmonary edema with cardiomegaly. Findings of decompensated congestive heart failure suspected. Calcified granuloma present left lung. Pleural spaces: Unremarkable. No pleural effusion. No pneumothorax. Heart/Mediastinum: See Lungs finding. Bones/joints: Unremarkable. Gastrointestinal tract: There is demonstration of a gastric band. The gastric band phi angle is estimated at 65 degrees this represents abnormal findings and should be further evaluated for slippage of gastric band. XR/XR chest 1V [id number] IMPRESSION: Endotracheal tube 4.7 cm from johann. Nasogastric tube terminating in the distal esophagus. Findings suspicious for decompensated congestive heart failure pulmonary edema. Gastric band in abnormal position and further workup is recommended to exclude slippage. See above
--- NOTE | 2024-11-14 21:14 | ECG_ITS ---
State Test Date: 2024-11-14 Pat Name: Marifer Loza Department: Room: Gender: Female Cad Drafter: : 1950 Requested By: Agustin Roper Order Number: [id number] Elizabeth MD: Norris Jiang M.D. Measurements Intervals [place] Rate: 91 P: 0 MS: 0 QRS: -2 QRSD: 134 T: 81 QT: 412 QTc: 509 Interpretive Statements ATRIAL FIBRILLATION INTRAVENTRICULAR CONDUCTION DELAY [130+ ms QRS DURATION] ANTEROSEPTAL MYOCARDIAL INFARCTION , OF INDETERMINATE AGE [40+ ms Q WAVE IN V1-V4] Compared to ECG 05/02/2019 20:47:33 Intraventricular conduction delay now present Sinus rhythm no longer present Myocardial infarct finding still present Electronically Signed On 11-15-2024 23:51:32 CDT by Norris Jiang M.D. [email or web address]
[2024-11-14 21:20] LABS: ABG PCO2 58.0 mmHg (35-45); ABG PH Result 7.16 (7.35-7.45); Alveolar-Arterial Oxygen Gradi 16.3 mmHg (5-10); Arterial Blood Gas Hematocrit 35.1 % (37-47); Blood Gas Allen Test Pos; Blood Gas Operator Identificat gerca; Blood Gas Sample Site Radial, right; Blood Gas Sample Type Arterial; Carboxyhemoglobin 0.5 %THgb (0.4-20.1); Glucose Level-ABG 422.0 mg/dL (70-115); HCO3 ABG 20.7 mmol/L (22-26); Ionized Calcium Level - ABG 1.1 mmol/L (1.1-1.4); Methemoglobin 2.0 % (0.4-1.5); Oxygen Saturation ABG 98.7; PO2 ABG 506.0 mmHg (80.0-100.0); PO2 FiO2 Ratio Arterial Blood 506; Potassium Level - ABG 4.5 mmol/L (3.5-5.0); Sodium Level - ABG 126.0 mmol/L (131-143)
[2024-11-14] MEDS: midazolam hcl 100 MG/100 ML BAG IV (21:20)
[2024-11-14] MEDS: fentaNYL 1,000 MCG/100 ML BAG 2.5 MCG IV (21:20)
--- OUTSIDE RECORDS SUMMARY | 2024-11-14 21:21 | XMS_ITS | Clinical Summary ---
Author Organization [facility] Address [address] [place] [address] Phone Care Team Providers Care Capital Equipment Specialist Name Role Phone Isac Caal MD Primary Care Provider Unavail able Allergies Active Allergy Reactions Criticality Noted Date Comments Codeine Hallucination Low 04/23/2019 Iodinated Contrast Media Rash Medium 04/24/2019 Medications hydroCHLOROthiazide 25 mg tablet Take 25 mg by mouth 2 times daily. 04/23/19 20 Active albuterol sulfate 90 mcg/Actuation inhaler Take 2 Puffs by inhalation every 6 hours as needed for Shortness of Breath. 04/23/19 20 Active atorvastatin (LIPITOR) 40 mg tablet Take 40 mg by mouth daily at bedtime. 04/23/19 20 Active metFORMIN (GLUCOPHAGE) 1,000 mg tablet Take 850 mg by mouth 2 times daily with meals. 04/23/19 20 Active aspirin (ECOTRIN EC) 81 mg Tablet, Delayed Release (E.C.) Take 81 mg by mouth daily. 04/23/19 20 Active glimepiride (AMARYL) 4 mg tablet Take 4 mg by mouth 2 times daily. 04/23/19 20 Active acetaminophen (TYLENOL ARTHRITIS) 650 mg Extended Release tablet Take 650 mg by mouth 2 times daily. 04/23/19 20 Active omeprazole (PriLOSEC) 40 mg Capsule, Delayed Release(E.C.) Take 40 mg by mouth daily. 04/23/19 20 Active carvediloL (COREG) 6.25 mg tablet Take 6.25 mg by mouth 2 times daily with meals. 04/23/19 Active ALPRAZolam (XANAX) 0.25 mg tablet Take 0.25 mg by mouth nightly as needed for Anxiety. 04/23/19 Active fexofenadine (SHILO) 180 mg tablet Take 180 mg by mouth daily. 04/23/19 Active NIFEdipine (ADALAT CC) 60 mg Extended Release tablet Take 1 Tablet (60 mg) by mouth daily. 30 Tablet 1 04/26/19 Active sertraline (ZOLOFT) 100 mg tablet Take 200 mg by mouth daily at bedtime. 04/23/19 Active fluticasone propion-salmeteroL (ADVAIR DISKUS,WIXELA INHUB) 250-50 mcg/dose disk inhaler Take 1 Puff by inhalation 2 times daily. 04/23/19 Active sodium chloride (AYR) 0.65 % Drops Administer 2 Drops in each nostril every 2 hours as needed for Congestion. 04/25/19 Active mometasone (NASONEX) 50 mcg/actuation [place], Non-Aerosol Administer 1 [place] in each nostril 2 times daily. 1 Gram 1 04/25/19 Active dextromethorphan-gua iFENesin (MUCINEX DM) 30-600 mg Tablet Sustained Release 12HR Take 1 Tablet by mouth every 12 hours. Active fenofibrate nanocrystallized (TRICOR) 145 mg tablet Take 145 mg by mouth daily. Active furosemide (LASIX) 40 mg tablet Take 40 mg by mouth daily. Active losartan (COZAAR) 100 mg tablet Take 100 mg by mouth daily. Active meloxicam (MOBIC) 7.5 mg tablet Take 7.5 mg by mouth daily. Active NIFEdipine (PROCARDIA XL) 30 mg Extended Release 24 hour tablet Take 30 mg by mouth daily. Active potassium chloride (KLOR-CON) 10 mEq Extended Release tablet Take 10 mEq by mouth. Active HYDROcodone-acetamin ophen (NORCO) 5-325 mg tabletIndications:Ac apoorva left-sided low back pain without sciatica Take 1 Tablet by mouth every 4 hours as needed for Pain, Moderate. Max Daily Amount: 6 Tablets 20 Tablet 07/05/19 Active cyclobenzaprine (FLEXERIL) 10 mg tablet Take 1 Tablet (10 mg) by mouth 3 times daily as needed for Spasm or Pain. 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, with fat layer exposed 03/05/2020 Charcot's arthropathy associ ated with type 2 diabetes mellitus 03/05/2020 Diabetic polyneuropathy asso ciated with type 2 diabetes mellitus 03/05/2020 Hypertensive urgency 04/24/2019 Benign hypertension 04/23/2019 DM (diabetes mellitus) 04/23/2019 JULIANNA (obstructive sleep apnea) 04/23/2019 CAD (coronary atherosclerotic disease) 0 CHF (congestive heart failure) 04/23/2019 Family History Medical History Relation Name Comments Cancer Brother Heart Disease Brother Hypertension Daughter Cancer Father Relation Name Status Comments Brother Daughter Father Mother Social History Tobacco Use Types Packs/Day Years Used Date Smoking Tobacco: Former Cigarettes Q uit: 03/15/1994 Smokeless Tobacco: Never Tobacco Cessation:Counseling Given: Not Answered Alcohol Use Standard Drinks/Week Comments Never 0 (1 standard drink = 0.6 oz pur e alcohol) Feeling Safe Answer Date Recorded Are you in a relationship wi th someone who hurts you emotionally and/or physically? 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 Gender Identity Not on file Sexual Orientation Not on file Last Filed Vital Signs Vital Sign Reading Time Taken Comments Blood Pressure 132/71 07/04/2022 2:45 PM CDT Pulse 65 07/04/2022 2:45 PM CDT Temperature 36.8 C (98.3 F) 07/04/2022 12:18 PM CDT Respiratory Rate 18 07/04/2022 2:45 PM CDT Oxygen Saturation 94% 07/04/2022 2:45 PM CDT Inhaled Oxygen Concentration - - Weight 107.3 kg (236 lb 9.6 oz) 023 12:18 PM CDT Height 177.8 cm (5' 10 ) 07/04/2022 12: 18 PM CDT Body Mass Index 33.95 07/04/2022 12:18 PM CDT Plan of Treatment Health Maintenance Due Date Last Done Comments DIABETES ANNUAL RETINAL EXAM 1967 DIABETES MICROALBUMIN ANNUAL SCREEN 1967 LDL CHOLESTEROL ANNUAL 1967 DTAP/TDAP/TD VACCINES (1 - Tdap) 1968 PNEUMOCOCCAL VACCINE 50+ YEARS (1 of 2 - PCV) 04/29/18 69 COLORECTAL SCREENING 1994 Colorectal Cancer Screening 1994 FIT-DNA Q 3 years 1994 FIT/FOBT Q 1 year 1994 Flex Sig/CT Colonography Q 5 years 1994 ZOSTER VACCINE (1 of 2) 1999 OSTEOPOROSIS SCREENING 2014 DIABETES HBA1C Q 6 MONTHS 08/24/2019 02/22/2019 DIABETES ANNUAL FOOT EXAM 03/06/2021 03/06/2020 RSV VACCINE (60+ or ) (1 - 1-dose 75+ series) 2024 INFLUENZA VACCINE (#1) 2024 Insurance BCBS MEDICARE HMO [place]ICAID [place] Care Teams Capital Equipment Specialist Relationship Specialty Start Date End Date Isac Caal MD NO ADDRESS ON FILE PCP - General Internal Medicine 03/02/20
--- OUTSIDE RECORDS SUMMARY | 2024-11-14 21:21 | XMS_ITS | Encounter Summary ---
Author Organization [facility] Address [address] [place] [address] Care Team Providers Care Online Trader Name Role Phone Isac Caal MD Primary Care Provider Unavail able Encounter Details Date Type Department Care Team (Latest Contact Info) Description 04/17/2004 Outpatient Historical [facility] Cardiac Rf Microwave Engineer [address] [place] [address] Rene Mcpherson MD [address] [facility] [address] [place] [address] CORON ATHEROSCL ABSENTEE-SHAWNEE CORON VESSEL (Primary Dx) Social History Tobacco Use Types Packs/Day Years Used Date Smoking Tobacco: Never Assessed Comments Unknown Sex and Gender Information Value Date Recorded Sex Assigned at Not on file Legal Sex Female 3:21 AM HUMAN SERVICES PROGRAM SPECIALIST Gender Identity Not on file Sexual Orientation Not on file documented as of this encounter Plan of Treatment Not on file documented as of this encounter Procedures Procedure Name Priority Date/Time Associated Diagnosis Comments PT AND APTT Routine 04/17/2004 9:42 AM HUMAN SERVICES PROGRAM SPECIALIST CBC WITHOUT DIFFERENTIAL Routine 04/17/2004 9:42 AM HUMAN SERVICES PROGRAM SPECIALIST BASIC METABOLIC PANEL Routine 04/17/2004 9:42 AM HUMAN SERVICES PROGRAM SPECIALIST documented in this encounter Results * PT AND APTT (04/17/2004 9:42 AM HUMAN SERVICES PROGRAM SPECIALIST) PROTIME 13.5 12.4 - 14.9 Secs INTERFACE SYSTEM Comment: As of 03 note change in normal range. INR 1.0 INTERFACE SYSTEM Comment: DVT/PE Goal INR 2.5; range 2.0 - 3.0 Valve Replacement Tissue Goal INR 2.5; range 2.0 - 3.0 Mechanical Goal INR 3.0; range 2.5 - 3.5 POST-OH Goal INR 2.5; range 2.0 - 3.0 or Goal 3.0; range 2.5 - 3.5 Atrial Fibrillation Goal INR 2.5; range 2.0 - 3.0 Ischemic Stroke Goal INR 2.5; range 2.0 - 3.0 For additional information see Guidelines for Anticoagulation available from the pharmacy [facility] PTT 33.5 24.3 - 37.5 Secs INTERFACE SYSTEM Comment:Therapeutic Range: 04/17/2004 9:42 AM HUMAN SERVICES PROGRAM SPECIALIST us Rene Mcpherson MD HEMATOLOGY ORDERABLES Final Result INTERFACE SYSTEM Refer to clinic/hospital department * (ABNORMAL) CBC WITHOUT DIFFERENTIAL (04/17/2004 9:42 AM HUMAN SERVICES PROGRAM SPECIALIST) WBC 9.8 4.8 - 10.8 K/ul INTERFACE SYSTEM RBC 4.87 4.20 - 5.40 Mil/ul INTERFACE SYSTEM HEMOGLOBIN 14.0 12.0 - 16.0 g/dL INTERFACE SYSTEM HEMATOCRIT 42.7 36.0 - 46.0 % INTERFACE SYSTEM MCV 87.7 84.0 - 103.0 Fl INTERFACE SYSTEM MCH 28.7 27.0 - 34.0 pg INTERFACE SYSTEM MCHC 32.8 30.0 - 35.0 g/dL INTERFACE SYSTEM RDW 13.3 11.0 - 14.5 percent(in active) INTERFACE SYSTEM PLATELETS 264 140 - 440 K/ul INTERFACE SYSTEM MPV 10.2 8.9 - 12.8 Fl INTERFACE SYSTEM NEUTROPHILS 73.9 42.2 - 75.2 percent(in active) INTERFACE SYSTEM LYMPHOCYTES 17.9(L) 24.0 - 44.0 percent(in active) INTERFACE SYSTEM MONOCYTES 6.7 2.0 - 10.0 percent(in active) INTERFACE SYSTEM EOSINOPHILS 1.2 0.0 - 7.0 % INTERFACE SYSTEM BASOPHILS 0.3 0.0 - 1.0 percent(in active) INTERFACE SYSTEM NEUTROPHIL ABSOLUTE 7.2 2.0 - 8.0 K/uL INTERFACE SYSTEM LYMPHOCYTE ABSOLUTE 1.8 1.2 - 4.0 K/ul INTERFACE SYSTEM MONOCYTE ABSOLUTE 0.7(H) 0.1 - 0.6 K/ul INTERFACE SYSTEM EOSINOPHIL ABSOLUTE 0.1 0.0 - 0.7 K/ul INTERFACE SYSTEM BASOPHILS ABSOLUTE 0.0 0.0 - 0.2 K/ul INTERFACE SYSTEM 04/17/2004 9:42 AM HUMAN SERVICES PROGRAM SPECIALIST Rene Mcpherson MD HEMATOLOGY ORDERABLES Final Result Performing Organization Address [facility] Phone Number INTERFACE SYSTEM Refer to clinic/hospital department * (ABNORMAL) BASIC METABOLIC PANEL (04/17/2004 9:42 AM HUMAN SERVICES PROGRAM SPECIALIST) GLUCOSE 115(H) 70 - 110 mg/dL INTERFACE SYSTEM BUN 18(H) 7 - 17 mg/dL INTERFACE SYSTEM CREATININE 1.0 0.7 - 1.2 mg/dL (inactive) INTERFACE SYSTEM SODIUM 141 136 - 145 mEq/L INTERFACE SYSTEM POTASSIUM 3.9 3.5 - 5.0 mEq/L INTERFACE SYSTEM CHLORIDE 101 95 - 110 mEq/L INTERFACE SYSTEM CO2 29 22 - 32 mmol/l INTERFACE SYSTEM ANION GAP 15 9 - 20 mEq/L INTERFACE SYSTEM OSMOLALITY, CALCULATED 292 275 - 295 mOsm/Kg INTERFACE SYSTEM CALCIUM 9.6 8.4 - 10.5 mg/dL INTERFACE SYSTEM 04/17/2004 9:42 AM HUMAN SERVICES PROGRAM SPECIALIST Rene Mcpherson MD CHEMISTRY ORDERABLES Final R esult Performing Organization Address [facility] Phone Number INTERFACE SYSTEM Refer to clinic/hospital department documented in this encounter Visit Diagnoses Diagnosis Coronary atherosclerosis of [place] coronary artery- Primary documented in this encounter Care Teams Online Trader Relationship Specialty Start Date End Date Isac Caal MD NO ADDRESS ON FILE PCP - General Internal Medicine 03/02/20 documented as of this encounter
--- OUTSIDE RECORDS SUMMARY | 2024-11-14 21:21 | XMS_ITS | Clinical Summary ---
Author Organization [facility] Address [address] [place] [address] Phone Care Team Providers Care Vegetable Ii Farmworker Name Role Phone Isac Caal MD Primary Care Provider Unavail able Allergies Active Allergy Reactions Criticality Noted Date Comments Codeine Hallucination Low 04/23/2019 Iodinated Contrast Media Rash Medium 04/24/2019 Medications atorvastatin (LIPITOR) 40 mg tablet Take 40 mg by mouth daily at bedtime. Active sertraline (ZOLOFT) 100 mg tablet Take 200 mg by mouth daily at bedtime. Active hydroCHLOROthia zide 25 mg tablet Take 25 mg by mouth 2 times daily. Active glimepiride (AMARYL) 4 mg tablet Take 4 mg by mouth 2 times daily. Active ALPRAZolam (XANAX) 0.25 mg tablet Take 0.25 mg by mouth nightly as needed for Anxiety. Active omeprazole (PriLOSEC) 40 mg Capsule, Delayed Release(E.C.) Take 40 mg by mouth daily. Active metFORMIN (GLUCOPHAGE) 1,000 mg tablet Take 1,000 mg by mouth 2 times daily with meals. Active fluticasone propion-salmete rol (ADVAIR DISKUS,WIXELA INHUB) 250-50 mcg/dose disk inhaler Take 1 Puff by inhalation 2 times daily. Active albuterol HFA 90 mcg inhaler Take 2 Puffs by inhalation every 6 hours as needed for Shortness of Breath. Active acetaminophen (TYLENOL ARTHRITIS) 650 mg Extended Release tablet Take 650 mg by mouth 2 times daily. Active fexofenadine (SHILO) 180 mg tablet Take 180 mg by mouth daily. Active carvediloL (COREG) 6.25 mg tablet Take 6.25 mg by mouth 2 times daily with meals. Active aspirin (ECOTRIN EC) 81 mg Tablet, Delayed Release (E.C.) Take 81 mg by mouth daily. Active mometasone (Nasonex) 50 mcg/actuation [place], Non-Aerosol Administer 1 [place] in each nostril 2 times daily. 1 Gram 1 0 Active NIFEdipine (ADALAT CC) 60 mg Extended Release tablet Take 1 Tablet (60 mg) by mouth daily. 30 Tablet 1 0 Active sodium chloride (AYR) 0.65 % Drops Administer 2 Drops in each nostril every 2 hours as needed for Congestion. 0 Active Active Problems Problem Noted Date Diagnosed [...] Years Used Date Smoking Tobacco: Former Cigarettes 1 25 1 970 - 1994 Smokeless Tobacco: Never Alcohol Use Standard Drinks/Week Comments Never 0 (1 standard drink = 0.6 oz pur e alcohol) Comments Unknown Sex and Gender Information Value Date Recorded Sex Assigned at Not on file Legal Sex Female 3:21 AM TRACK INSPECTING SUPERVISOR Gender Identity Not on file Sexual Orientation Not on file Last Filed Vital Signs Vital Sign Reading Time Taken Comments Blood Pressure 135/74 03/05/2020 1:46 PM TRACK INSPECTING SUPERVISOR Pulse 86 03/05/2020 1:46 PM TRACK INSPECTING SUPERVISOR Temperature 36.7 C (98 F) 03/02/2020 12:15 PM TRACK INSPECTING SUPERVISOR Respiratory Rate 19 03/02/2020 1:50 PM TRACK INSPECTING SUPERVISOR Oxygen Saturation 97% 03/02/2020 1:50 PM TRACK INSPECTING SUPERVISOR Inhaled Oxygen Concentration - - Weight 108.9 kg (240 lb) 03/05/2020 1:46 PM TRACK INSPECTING SUPERVISOR Height 177.8 cm (5' 10 ) 03/05/2020 1:46 PM TRACK INSPECTING SUPERVISOR Body Mass Index 34.44 03/05/2020 1:46 PM TRACK INSPECTING SUPERVISOR Plan of Treatment Health Maintenance Due Date Last Done Comments DIABETES ANNUAL RETINAL EXAM 1967 DIABETES HBA1C Q 6 MONTHS 1967 DIABETES MICROALBUMIN ANNUAL SCREEN 1967 LDL CHOLESTEROL ANNUAL 1967 DTAP/TDAP/TD VACCINES (1 - Tdap) 1968 PNEUMOCOCCAL VACCINE 50+ YEARS (1 of 2 - PCV) 04/29/18 69 COLORECTAL SCREENING 1994 Colorectal Cancer Screening 1994 FIT-DNA Q 3 years 1994 FIT/FOBT Q 1 year 1994 Flex Sig/CT Colonography Q 5 years 1994 ZOSTER VACCINE (1 of 2) 1999 OSTEOPOROSIS SCREENING 2014 DIABETES ANNUAL FOOT EXAM 03/06/2021 03/06/2020 RSV VACCINE (60+ or ) (1 - 1-dose 75+ series) 2024 INFLUENZA VACCINE (#1) 2024 Insurance [facility] Advance Directives For more information, please contact: [phone] * Full Code (Latest Code Status on File) Date Activated Date Inactivated Comments 04/23/2019 8:36 PM 04/25/2019 2:39 PM Care Teams Vegetable Ii Farmworker Relationship Specialty Start Date End Date Isac Caal MD NO ADDRESS ON FILE PCP - General Internal Medicine 03/02/20
--- OUTSIDE RECORDS SUMMARY | 2024-11-14 21:21 | XMS_ITS | Patient Health Record ---
Author Organization [facility] Address [address] [place] [address] Care Team Providers Care Fire Extinguisher Charger Name Role Phone Vika Green [phone] Allergies Allergen (clinical drug ingredient) Drug/Non Drug Allergy documented on EMR Reaction Allergy Type Onset Date Status codeine Codeine Sulfate Unknown Drug Allergy A ctive Triple Antibiotic Unknown Drug Allergy Active Reason For Referral No Information Medications Medication SIG (Take, Route, Frequency, Duration) Notes Start Date End Date Status NIFEdipine ER 30 MG Tablet Extended Release 24 Hour 1 tablet on an empty stomach Orally Once a day Active Ondansetron HCl 4 MG Tablet 1 tablet Ora lly Once a day Active Meloxicam 7.5 MG Tablet 1 tablet Orally Once a day Active Klor-Con 10 10 MEQ Tablet Extended Release 1 tablet with food Orally Twice a day Active Albuterol Sulfate 0.63 MG/3M L Nebulization Solution as directed Inhalation Active Omeprazole 40 MG Capsule Delayed Release 1 capsule 30 minutes before morning meal Orally Once a day Active Feosol 200 (65 Fe) MG Tablet 1 tablet Or ally Three times a Week Active metFORMIN HCl 850 MG Tablet 1 tablet wit h a meal Orally Once a day Active Carvedilol 6.25 MG Tablet 1 tablet with food Orally Twice a day Active Semaglutide(0.25 or 0.5MG/DO S) 2 MG/1.5ML Solution Pen-injector 0.5mg Subcutaneous weekly Active Atorvastatin Calcium 40 MG Tablet 1 tablet Orally Once a day Active Fluticasone Propionate 50 MCG/ACT Suspension 1 spray in each nostril Nasally Once a day Active Sertraline HCl 100 MG Tablet 1 tablet Or ally Once a day Active Fenofibrate 145 MG Tablet 1 tablet Orall y Once a day Active Vascepa 1 GM Capsule 2 capsules with yany ls Orally Twice a day Active Aspirin 81 MG Tablet Chewable 1 tablet O rally Once a day Active hydroCHLOROthiazide 50 MG Tablet 1 tablet in the morning Orally Once a day Active cloNIDine HCl 0.1 MG Tablet 1 tablet Ora lly three times a day as needed for BP>160/90 Active Losartan Potassium 100 MG Tablet 1 tablet Orally Once a day Active Social History Tobacco Use: Social History Observation Description Date Details (start date - stop date) Never Smoker NA - NA Social History Depression Screening Social Info Question Answer Notes PHQ-9 Little interest or p lyle in doing things Nearly every day Feeling down, depressed, or hopeless Not at all Trouble falling or staying asleep, or sleeping t oo much Not at all Feeling tired or having little energy Not at all Poor appetite or overeating Not at all Feeling bad about yourself, or that you are a failure, or have let yourself or your family down Not at all Trouble concentrating on thi ngs, such as reading the newspaper or watching television Not at all Moving or speaking so slowly that other people could have noticed. Or the opposite ? being so fidgety or restless that you have been moving around a lot more than usual Not at all Thoughts that you would be b joy off , or of hurting yourself in some way Not at all Total Score 3 Interpretation Minimal Depression Drugs/Alcohol: Social Info Question Answer Notes Alcohol Screen (Audit-C) Did you have a drink containing alcohol in the past year? No Points 0 Interpretation Negative Drugs Have you used drugs other than those for medical reasons in the past 12 months? 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) Active confirmed Problem Amputated below knee (522367696) 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 Ketorolac Tromethamine 07/01/2022 60 mg nd [id number] Patient tolerated well. Medical (General) History Medical History History ICD Code type II diabetes osteoarthritis COPD hypertension Surgical History Surgery Date(Month/Year) BKA right 03/13/20 lap band surgery Hospitalization History Reason Date(Month/Year) see surgical history
[2024-11-14 21:53] LABS: Hematocrit 33.8 % (36-47); Hemoglobin 10.40 g/dL (11.27-16.99); Mean Corpuscular HGB Conc 30.8 g/dL (30-55); Mean Corpuscular Hemoglobin 26.0 pg (27-33); Mean Corpuscular Volume 84.5 fl (85-98); Nucleated Red Blood Cells % 0 %; Platelet Count 328 10^3/cmm (157-399); Red Blood Count 4.00 10^6/uL (3.85-5.65); White Blood Count 21.91 10^3/uL (3.29-11.43)
[2024-11-14 22:06] LABS: Partial Thromboplastin Time 30.8 SECONDS (23.9-36.7)
[2024-11-14 22:10] LABS: Troponin(5th) Baseline 23 ng/L (0-10)
[2024-11-14 22:12] LABS: Alanine Aminotransferase 50 U/L (0-33); Albumin Level 3.8 g/dL (3.5-5.2); Alkaline Phosphatase 48 U/L (35-105); Aspartate Amino Transferase 70 U/L (0-32); Blood Urea Nitrogen 25 mg/dL (8-23); Calcium 8.0 mg/dL (8.5-10.5); Carbon Dioxide 22 mmol/L (22-29); Chloride 89 mmol/L (98-107); Creatinine Clr Calc Pharmacy 66.3454; Globulin 2.6 g/dL (1.3-4.6); Glucose 384 mg/dL (65-115); Osmolality Calculated 282 mOsm/kg (285-295); Sodium 126 mmol/L (136-145); Total Protein 6.4 g/dL (6.6-8.7)
--- NOTE | 2024-11-14 22:18 | ED_ITS ---
HPI - General Adult 2 General: Chief complaint: Cardiac Arrest/CPR Stated complaint: POST CODE Time Seen by Provider: 11/14/24 21:12 History of Present Illness: 74-year-old female presents emergency ro om via EMS. They were called out for difficulty breathing shortly after their arrival the patient decompensated went into respiratory arrest. She began to become bradycardic she was given atropine and then lost her pulse. CPR was started she was intubated by RSI 2 rounds of epi and cardiac compressions. They were able to achieve ROSC. RSI was accomplished with 30 mg of rocuronium and 30 mg of etomidate with 7.5 ET tube. On arrival she is in atrial fibrillation. No family members at the bedside. She has known history of COPD and sleep apnea. Related Data Home Medications ?Medication ?Instructions ?Recorded ?Confirmed aspirin 81 mg tablet,delayed 81 mg PO DAILY@0700 03/3011/07/24 release mecobalamin (vitamin B12) 5,000 mcg PO 10/22/23 mcg disintegrating tablet Previous Rx's ?Medication ?Instructions ?Recorded HAND CONTROLS FOR VEHICLE #1 ea 07/25/20 blood sugar diagnostic #100 ea 10/28/20 CPAP mask and tubing #1 ea 11/20/21 Replacement armrests for wheelchair #1 ea 11/20/21 RSV Vaccine #1 ea 01/14/23 syringes with needles for SQ #100 ea 01/20/23 injection Diabetic shoes #1 ea 10/07/23 clonidine HCl 0.1 mg tablet See Rx Instructions .Route 12/03/23 .COMPLEX #90 tabs ondansetron HCl 4 mg tablet See Rx Instructions .Route 02/02/24 .COMPLEX #30 tabs standup rollator #1 ea 02/03/24 AUTO TITRATING CPAP 8-13CM with #1 ea 02/16/24 supplies Nebulizer and supplies #1 ea 02/16/24 alcohol swabs 1 pad topical DIRECTED #2 00 ea 02/17/24 blood sugar diagnostic (Blood #200 ea 02/17/24 Glucose Test strips) blood-glucose meter #1 ea 02/17/24 lancets #200 ea 02/17/24 Below the knee amputation Supplies #1 ea 05/26/24 silver sulfadiazine 1 % topical 1 applic topical BID # 50 grams 06/08/24 cream (Silvadene) triamcinolone acetonide 0.1 % 1 applic topical BID #45 3.6 grams 06/08/24 topical cream albuterol sulfate 2.5 mg/3 mL 2.5 mg (3 mL) inhalation Q4H PRN 06/12/24 (0.083 %) solution for nebulization shortness of breat h or wheezing #75 mL hydrochlorothiazide 50 mg tablet 50 mg PO BID #180 tab s 06/12/24 icosapent ethyl 1 gram capsule 2 g (2 x 1 gram) PO BID #360 caps 07/10/24 (Vascepa) meloxicam 15 mg tablet 15 mg PO DAILY #90 tabs 06/14 11/06 albuterol sulfate 90 mcg/actuation See Rx Instructions .Route 07/21/24 aerosol inhaler .COMPLEX #6.7 grams fluticasone fur. 100 mcg-umeclid 1 inh inhalation KAREN Y #60 ea 07/21/24 62.5 mcg-vilant 25 mcg inhalat.powder (Trelegy Ellipta) metformin 500 mg tablet 500 mg .Route BID #180 tabs 07/21/24 nifedipine 60 mg tablet,extended 60 mg PO DAILY #90 ta bs 07/21/24 release 24 hr potassium chloride 10 mEq 20 meq (2 x 10 mEq) PO DAILY 90 07/21/24 tablet,extended release(part/cryst) days #180 tabs solifenacin 10 mg tablet (Vesicare) 10 mg PO DAILY #90 tabs 08/18/24 fluticasone propionate 50 See Rx Instructions .Route 0 09/18/24 mcg/actuation nasal .COMPLEX #16 grams spray,suspension semaglutide 0.25 mg or 0.5 mg (2 See Rx Instructions . Route 09/18/24 mg/3 mL) subcutaneous pen injector .COMPLEX #3 mL (Ozempic) nitroglycerin 0.4 mg sublingual 0.4 mg sublingual Q5M PRN CHEST 09/19/24 tablet PAINS #30 tabs amoxicillin 875 mg-potassium 1 tab PO BID #20 tabs clavulanate 125 mg tablet gabapentin 600 mg tablet 600 mg PO TID 30 days #90 ta bs 09/25/24 prednisone 20 mg tablet 40 mg (2 x 20 mg) PO DAILY # 10 tabs 09/25/24 ciprofloxacin HCl 500 mg tablet 500 mg PO BID 7 days # 14 tabs 11/07/24 atorvastatin 40 mg tablet See Rx Instructions .Route 0 11/14/24 .COMPLEX #90 tabs carvedilol 12.5 mg tablet 12.5 mg PO BID #180 tabs 05/09 fenofibrate nanocrystallized 145 See Rx Instructions . Route 11/14/24 mg tablet .COMPLEX #90 tabs ferrous sulfate 325 mg (65 mg 325 mg PO DAILY #90 tabs 11/14/24 iron) tablet (FeroSul) furosemide 40 mg tablet 40 mg PO DAILY@0700 90 days #90 11/14/24 tabs losartan 100 mg tablet 100 mg PO DAILY 90 days #90 tabs 11/14/24 omeprazole 40 mg capsule,delayed 40 mg PO BID 90 days #180 caps 11/14/24 release sertraline 100 mg tablet See Rx Instructions .Route 0 11/14/24 .COMPLEX #90 tabs Allergies Allergy/AdvReac Type Severity Reaction Status Date / Time codeine Allergy ADR-Confusi Verified 11/07/24 11:03 on bacitracin (From Triple AdvReac Mild unknown Verified 11/07/24 11:03 Antibiotic) neomycin (From Triple AdvReac Mild unknown Verified 11/07/24 11:03 Antibiotic) polymyxin B (From Triple AdvReac Mild unknown Verified 11/07/24 11:03 Antibiotic) Review of Systems 2 General: Reports: ROS unobtainable due to endotracheal tube PFSH ED 2 PFSH: Medical History PAD (peripheral artery disease) CHF (congestive heart failure) Osteoarthritis of shoulders, bilateral Leg cramps Moderate major depression Hypertriglyceridemia Amputation stump injury Microcytic hypochromic anemia Benign essential HTN Type 2 diabetes mellitus, without long-term current use of insulin Old MA (myocardial infarction) Feb 2019 Obstructive sleep apnea Hyperlipidemia COPD (chronic obstructive pulmonary disease) Diabetes mellitus type 2 in nonobese Surgical History History of below knee amputation History of cholecystectomy History of laparoscopic adjustable gastric banding Family History Other CAD (coronary artery disease) Cancer Diabetes Social History Smoking and tobacco/nicotine status: never used tobacco/nicotine Quit status (tobacco/nicotine): has quit using Year quit tobacco: 1991 Former quit date comment: PPD x Second hand smoke exposure: No Alcohol intake: never Substance/Drug Use: never Lives independently: Yes Household members: none Housing: House Marital status: / Number of children: 5 Number of grandchildren: 10 Highest education level completed: 6th Grade service: No Current occupational status: retired Current gender identity: Female Physical Exam 2 HENMT: COMMON NORMALS: normocephalic and atraumatic HEAD & SCALP: n ormocephalic and atraumatic Resp: COMMON NORMALS: normal respiratory effort, No retractions, No use of accessory muscles and clear to auscultation bilaterally AUSCULTATION: clear to auscultation bilaterally Cardio: COMMON NORMALS: regular rate, regular rhythm and No murmurs present (Cardio) RATE: regular rate RHYTHM: regular rhythm GI: COMMON NORMALS: Soft to palpation and No hepatosplenomegaly present A USCULTATION: Yes normoactive bowel sounds PALPATION: Yes Soft to palpation, No Tenderness to palpation present (GI), No Guarding due to palpation present (GI) and Yes No hepatosplenomegaly present Extremity: COMMON NORMALS: normal to inspection, capillary refill normal, no clubbing, cyanosis or edema, no calf tenderness and no pedal edema Skin: COMMON NORMALS: no rashes or lesions noted GENERAL SKIN EXAM: no rashes or lesions noted Course 2 Vital Signs: Vital signs: Vital Signs Temperature 95.3 F L 11/14/24 21:11 Pulse Rate 77 11/15/24 02:30 Respiratory Rate 12 11/15/24 02:30 Blood Pressure 167/102 11/15/24 02:17 Pulse Oximetry 93 11/15/24 02:30 Oxygen Delivery Me thod Mechanical Ventil ation 11/15/24 01:27 Fraction of Inspir ed Oxygen 40 11/15/24 01:27 MDM - General Adult Medical Decision Making Patient postcode on arrival here. Low-dose. Her chest x-ray is she is fluid overloaded. Additionally when we placed her EEG NG tube we are unable to get it to advance only withdrew it appears there is food debris on the end of it looks like it got caught at the esophageal junction on the CT. There also appears to be a food bolus at the esophageal junction. There is food and fluids in the stomach. There is a gastric band that appears to have slipped superiorly. There does not appear to be any signs of obstruction. Dr. Pabon advised he will consult surgery for EGD. Will admit to ICU. She will need serial enzymes and further monitoring. White count is elevated suspect that is from demargination from the stress of the situation. Additionally she is anemic. Mild hyponatremia as well. [place] +27. By this time Dr. Pabon had assumed care of the patient and she was notified. Dr. Pabon's initiated antibiotics as well. Medical Records I reviewed the patient's medical records. Lab Data I reviewed the patient's lab results. 11/14/24 21:44 11/14/24 21:44 Radiology Impressions Chest X-Ray 11/14/24 21:12 IMPRESSION: Endotracheal tube 4.7 cm from johann. Nasogastric tube terminating in the distal esophagus. Findings suspicious for decompensated congestive heart failure pulmonary edema. Gastric band in abnormal position and further workup is recommended to exclude slippage. See above Abdomen/Pelvis CT 11/14/24 22:42 IMPRESSION: 1. Findings in the lower lung zones most concerning for abnormalities related to decompensated congestive heart failure pulmonary edema pleural effusions as above noted 2. Nasogastric tube terminating in the distal esophagus just above the GE junction which is slightly dilated. 3. Abnormal location or appearance for a gastric band concerning for slippage and further evaluation in this regard recommended. 4. Decompressed thickened colon colitis not excluded Head CT 11/14/24 22:43 IMPRESSION: No definite acute intracranial abnormality. Laboratory Results WBC 21.91 10^3/uL (3.29-11.43) H 11/14/24 21:44 RBC 4.00 10^6/uL (3.85-5.65) 11/14/24 21:44 Hgb 10.40 g/dL (11.27-16.99) L 11/14/24 21:44 Hct 33.8 % (36-47) L 11/14/24 21:44 MCV 84.5 fl (85-98) L 11/14/24 21:44 MCH 26.0 pg (27-33) L 11/14/24 21:44 MCHC 30.8 g/dL (30-55) 11/14/24 21:44 RDW 15.3 % (12.1-15.1) H 11/14/24 21:44 Plt Count 328 10^3/cmm (157-399) 11/14/24 21:44 MPV 9.4 fL (7.4-10.4) 11/14/24 21:44 Neut % (Auto) 83.0 % 11/14/24 21:44 Lymph % (Auto) 8.3 % 11/14/24 21:44 Perry % (Auto) 1.9 % 11/14/24 21:44 Eos % (Auto) 2.0 % 11/14/24:44 Baso % (Auto) 0.5 % 11/14/24 21:44 Neut # (Auto) 18.20 10^3/uL (1.8-7.7) H 11/14/24 21:44 Lymph # (Auto) 1.8 10^3/uL (0.8-4.8) 11/14/24 21:44 Perry # (Auto) 0.4 10^3/uL (0.2-0.9) 11/14/24 21:44 Eos # (Auto) 0.4 10^3/uL (0.0-0.8) 11/14/24 21:44 Baso # (Auto) 0.1 10^3/uL (0.0-0.1) 11/14/24 21:44 Nucleated RBC % (auto) 0 % 11/14/24 21:44 Nucleated RBCs # 0.0 /100WBC 11/14/24 21:44 APTT 30.8 SECONDS (23.9-36.7) 11/14/24 21:44 Specimen Type Arterial 11/14/24 21:08 Sample Site Radial, right 11/14/24 21:08 ABG pH 7.16 (7.35-7.45) L* 11/14/24 21:08 ABG pCO2 58.0 mmHg (35-45) H 11/14/24 21:08 ABG pO2 506.0 mmHg (80.0-100.0) H 11/14/24 21:08 ABG PO2/FiO2 Ratio 506 11/14/24 21:08 ABG HCO3 20.7 mmol/L (22-26) L 11/14/24 21:08 ABG O2 Saturation 98.7 11/14/24 21:08 ABG Base Excess -8.3 mmol/L (-2.0-2.0) L 11/14/24 21:08 Mark Test Pos 11/14/24 21:08 A-a O2 Gradient 16.3 mmHg (5-10) H 11/14/24 21:08 Hematocrit 35.1 % (37-47) L 11/14/24 21:08 Hgb O2 Saturation 96.3 % (95-100) 11/14/24 21:08 Carboxyhemoglobin 0.5 %THgb (0.4-20.1) 11/14/24 21:08 Methemoglobin 2.0 % (0.4-1.5) H 11/14/24 21:08 Total Hemoglobin 11.5 g/dL (12-16) L 11/14/24 21:08 Sodium 126.0 mmol/L (131-143) L 11/14/24 21:08 Potassium 4.5 mmol/L (3.5-5.0) 11/14/24 21:08 Glucose 422.0 mg/dL (70-115) H 11/14/24 21:08 Ionized Calcium 1.1 mmol/L (1.1-1.4) 11/14/24 21:08 O2 Delivery Device Ambu 11/14/24 21:08 FiO2 100.0 % 11/14/24 21:08 Rocket Engine Component Mechanic ID [email or web address] 11/14/24 21:08 Sodium 126 mmol/L (136-145) L 11/14/24 21:44 Potassium 4.4 mmol/L (3.5-5.1) 11/14/24 21:44 Chloride 89 mmol/L (98-107) L 11/14/24 21:44 Carbon Dioxide 22 mmol/L (22-29) 11/14/24 21:44 Anion Gap 19.4 (5-19) H 11/14/24 21:44 BUN 25 mg/dL (8-23) H 11/14/24 21:44 Creatinine 1.0 mg/dL (0.5-0.9) H 11/14/24 21:44 GFR Calculation Not Reportable 11/14/24 21:44 Glucose 384 mg/dL (65-115) H 11/14/24 21:44 Calculated Osmolality 282 mOsm/kg (285-295) L 11/14/24 21:44 Calcium 8.0 mg/dL (8.5-10.5) L 11/14/24 21:44 Total Bilirubin 1.3 mg/dL (0.15-1.2) H 11/14/24 21:44 AST 70 U/L (0-32) H 11/14/24 21:44 ALT 50 U/L (0-33) H 11/14/24 21:44 Alkaline Phosphatase 48 U/L (35-105) 11/14/24 21:44 Creatine Kinase 122 U/L (26-192) 11/14/24 21:44 Troponin T Baseline 23 ng/L (0-10) H 11/14/24 21:44 Troponin T 120 Minute 50.02 ng/L (0-10) H 11/14/24 23:44 Delta Troponin T 27.02 ABS# (0-10) H* 11/14/24 23:44 Total Protein 6.4 g/dL (6.6-8.7) L 11/14/24 21:44 Albumin 3.8 g/dL (3.5-5.2) 11/14/24 21:44 Globulin 2.6 g/dL (1.3-4.6) 11/14/24 21:44 Urine Color Yellow (Yellow) 11/14/24 22:07 Urine Appearance Clear (CLEAR) 11/14/24 22:07 Urine pH 5.5 (5-7) 11/14/24 22:07 Ur Specific Galien 1.018 (1.005-1.030) 11/14/24 22:07 Urine Protein 3+ (Negative) A 11/14/24 22:07 Urine Glucose (UA) 2+ (Normal) H 11/14/24 22:07 Urine Ketones Trace (Negative) 11/14/24 22:07 Urine Blood 1+ (Negative) A 11/14/24 22:07 Urine Nitrate Negative (Negative) 11/14/24 22:07 Urine Bilirubin Negative (Negative) 11/14/24 22:07 Urine Urobilinogen 1.0 mg/dL (Negative) 11/14/24 22:07 Ur Leukocyte Esterase Negative (Negative) 11/14/24 22:07 Urine RBC 0-2 /hpf (0-2) 11/14/24 22:07 Urine WBC 0-5 /hpf (0-5) 11/14/24 22:07 Ur Squamous Epith Cells 0-5 /hpf (0-5) 11/14/24 22:07 Amorphous Sediment Not Reportable 11/14/24 22:07 Urine Bacteria None seen /hpf (NONE) 11/14/24 22:07 Hyaline Casts 23.14 /lpf 11/14/24 22:07 Influenza A (PCR) Negative (Negative) 11/14/24 22:37 Influenza Type B (PCR) Negative (Negative) 11/14/24 22:37 RSV (PCR) Negative (Negative) 11/14/24 22:37 SARS-CoV-2 (PCR) Negative (Negative) 11/14/24 22:37 All radiology interpretation(s) finalized by discharge Critical Care Time 2 Critical Care Time: Critical Care Time: Yes Total Critical Care Time: 40 Attestation: The high probability of a clinically significant, sudden or life threatening deterioration of the patient's cardiovascular respiratory renal system(s) required my full and direct attention, intervention and personal management. The critical care time is as shown. This time is in addition to time spent performing any reported procedures but includes the following: [x] Data and vital sign review and interpretation [x] Patient assessment, examination and intervention [x] Documentation [x] Medication orders and management Discharge Plan Discharge Patient Disposition: Admitted As Inpatient Admit Provider: Soco Pabon Clinical Impression: NSTEMI (non-ST elevated myocardial infarction), Type 2 diabetes mellitus, without long-term current use of insulin, COPD (chronic obstructive pulmonary disease), COPD exacerbation, CHF (congestive heart failure), Acute respiratory failure with hypoxemia, Cardiac arrest, Pulmonary edema, Pneumonia, Hyponatremia Condition: Stable Coding Level of Care Code ED Club Car Attendant for Marychuy Gunn
[2024-11-14 22:20] LABS: Anion Gap 19.4 (5-19); Potassium 4.4 mmol/L (3.5-5.1)
[2024-11-14 22:41] LABS: Glucose Urine UA 2+ (Normal); Nitrate Urine Negative (Negative); Specific Gravity, Urine 1.018 (1.005-1.030)
--- NOTE | 2024-11-14 22:42 | CTR_ITS ---
PROCEDURE INFORMATION: Exam: CT Abdomen And Pelvis Without Contrast Exam date and time: 11/14/2024 11:26 PM Age: 74 years old Clinical indication: Other: Post code abd pain; History--pt arrives via EMS by ocad post code. Per EMS the PT was SOB upon arrival with increased work of breathing. Per EMS shortly after arrival PT went unresponsive with a pulse. Per EMS about 2046 PT lost pulse and cpr was performed for 15mins. Per EMS they administed 2x doses of epi and 1x dose of atropine. EMS intubated with 130mg of rocc and 30mg of etomidate with 7.5 et-tube being 22@ the lip. ; Additional info: Abdominal pain TECHNIQUE: Imaging protocol: Computed tomography of the abdomen and pelvis without contrast. Radiation optimization: All CT scans at this facility use at least one of these dose optimization techniques: automated exposure control; mA and/or kV adjustment per patient size (includes targeted exams where dose is matched to clinical indication); or iterative reconstruction. COMPARISON: CT angio abdomen [id number] 04/21/2019 11:52 AM RADIATION DOSE METRICS: Total DLP (mGy-cm): 1503.33 FINDINGS: Tubes, catheters and devices: There is a nasogastric tube that terminates in the distal esophagus just above the GE junction. Pleural spaces: There are findings of small bilateral pleural effusions present. There is consolidated appearance lower lobes and findings that could represent changes of pulmonary edema. Heart: Heart is enlarged. Aortic valve, mitral annular coronary artery calcifications present Esophagus: This is a gastric band in position there is abnormal in location appears somewhat horizontally located concerning for gastric band slippage this may be causing a degree of partial obstruction of the distal esophagus and further assessment and evaluation in this regard is recommended. Liver: There is a trace amount of fluid adjacent to the posteroinferior right liver lobe nonspecific Gallbladder and biliary ducts: Patient is status post cholecystectomy. Pancreas: Unremarkable. No ductal dilation. Spleen: Unremarkable. No splenomegaly. Adrenal glands: Normal. No mass. Kidneys and ureters: Unremarkable. No hydronephrosis. Stomach and bowel: There is decompressed thickened colon correlate to exclude colitis no obstruction Appendix: The appendix is normal Intraperitoneal space: Unremarkable. No free air. No significant fluid collection. Vasculature: Unremarkable. No abdominal aortic aneurysm. Lymph nodes: There are calcified bilateral inferior hilar lymph nodes sequela of prior granulomatous exposure. Urinary bladder: Urinary bladder is collapsed contains Gusman catheter. Reproductive: Unremarkable as visualized. Bones/joints: Unremarkable. No acute fracture. Soft tissues: Unremarkable. CT/CT abdomen pelvis wo con [id number] IMPRESSION: 1. Findings in the lower lung zones most concerning for abnormalities related to decompensated congestive heart failure pulmonary edema pleural effusions as above noted 2. Nasogastric tube terminating in the distal esophagus just above the GE junction which is slightly dilated. 3. Abnormal location or appearance for a gastric band concerning for slippage and further evaluation in this regard recommended. 4. Decompressed thickened colon colitis not excluded
--- NOTE | 2024-11-14 22:43 | CTR_ITS ---
PROCEDURE INFORMATION: Exam: CT Head Without Contrast Exam date and time: 11/14/2024 11:19 PM Age: 74 years old Clinical indication: Altered mental status/memory loss; History--pt arrives via EMS by ocad post code. Per EMS the PT was SOB upon arrival with increased work of breathing. Per EMS shortly after arrival PT went unresponsive with a pulse. Per EMS about 6 PT lost pulse and cpr was performed for 15mins. Per EMS they administed 2x doses of epi and 1x dose of atropine. EMS intubated with 130mg of rocc and 30mg of etomidate with 7.5 et-tube being 22@ the lip. ; Additional info: Postcode TECHNIQUE: Imaging protocol: Computed tomography of the head without contrast. Radiation optimization: All CT scans at this facility use at least one of these dose optimization techniques: automated exposure control; mA and/or kV adjustment per patient size (includes targeted exams where dose is matched to clinical indication); or iterative reconstruction. COMPARISON: CT head wo con* [id number] 04/20/2019 7:51 PM RADIATION DOSE METRICS: Total DLP (mGy-cm): 1424.68 FINDINGS: Brain: See Cerebral ventricles finding. Cerebral ventricles: [id number] involutional changes of the ventricles and sulci. Query mild chronic small-vessel ischemic change. Paranasal sinuses: Visualized sinuses are unremarkable. No fluid levels. Mastoid air cells: Visualized mastoid air cells are well aerated. Bones: Unremarkable. No acute fracture. Soft tissues: Unremarkable. CT/CT head wo con* [id number] IMPRESSION: No definite acute intracranial abnormality.
[2024-11-14 23:17] LABS: Respiratory Syncytial Virus Ce NEGATIVE (Negative); SARS-CoV-2 PCR NEGATIVE (Negative)
[2024-11-15] VITALS (70 sets, daily range): BP systolic 66–197; BP diastolic 34–122; PULSE 50–98; RESP 10–22; TEMP 36.9–37.3; O2SAT 87–99
[2024-11-15 00:06] LABS: Troponin 5 2HR 50.02 ng/L (0-10)
[2024-11-15 00:10] LABS: Troponin 5 2HR Delta 27.02 ABS# (0-10)
[2024-11-15] MEDS: hyDRALAzine 20 mg/mL INJ 1 mL 10 MG IVP (00:24)
--- NOTE | 2024-11-15 00:24 | CTR_ITS ---
PROCEDURE INFORMATION: Exam: CTA Chest With Contrast Exam date and time: 11/15/2024 4:00 AM Age: 74 years old Clinical indication: Injury or trauma; Other: Post code; Additional info: Acute respiratory arrest TECHNIQUE: Imaging protocol: Computed tomographic angiography of the chest with contrast. Exam focused on the arteries. 3D rendering (Not supervised by radiologist): MIP and/or 3D reconstructed images were created by the technologist. Radiation optimization: All CT scans at this facility use at least one of these dose optimization techniques: automated exposure control; mA and/or kV adjustment per patient size (includes targeted exams where dose is matched to clinical indication); or iterative reconstruction. Contrast material: OMNI 350; Contrast volume: 100 ml; Contrast route: INTRAVENOUS (IV); COMPARISON: CR (CHEST, ) 11/14/2024 9:12 PM RADIATION DOSE METRICS: Total DLP (mGy-cm): 521.07 FINDINGS: An endotracheal tube has been applied with its distal tip above the johann in good position Pulmonary arteries: Normal. No pulmonary emboli. The administered contrast is noted to reflux into the azygos vein as well as the coronary vein Aorta: Scattered calcific plaque associated with the thoracic aorta is present. No aortic aneurysm. No aortic dissection. Lungs: There is compressive atelectasis associated with the dependent aspect of the lungs which is associated with moderate bilateral pleural effusions. No consolidation. No masses. Pleural spaces: There are moderate-sized bilateral pleural effusions larger on the right side. Heart: Moderate coronary artery calcification is noted. There is no evidence of right heart strain No cardiomegaly. No pericardial effusion. Lymph nodes: Calcified hilar lymph nodes are noted bilaterally, more notably on the left side. No significant mediastinal adenopathy is noted. Asymmetric substernal extension of the right lobe of the thyroid is noted. Bones/joints: Unremarkable. No acute fracture. Soft tissues: Unremarkable. A laparoscopically placed gastric band is noted. There is distal esophageal distension CT/CT angio chest PE protcl [id number] IMPRESSION: 1. There is no evidence of pulmonary embolism. 2. There are moderate-sized pleural effusions bilaterally, larger on the right. Dependent compressive atelectasis bilaterally is noted. 3. There is a lap band which is associated with distal esophageal distension. 4. Moderate coronary artery calcification is noted. 5. The distal tip of the endotracheal tube is above the level of the johann in good position.
--- NOTE | 2024-11-15 00:33 | USCV_ITS ---
Marifer Loza Age: 74 Gender: F : 1950 Exam Date: 11/15/2024 00:52 Ordering Phys: Soco Pabon MD Technologist: SOREN [place] [facility] [place]: NSTEMI, History of COPD, CMC, DM, multiple recent pneumonias BP: 184 / 105 HR: 73 Rhythm: Atrial fibrillation Technical Quality: Adequate MEASUREMENTS (Male / Female) Normal Values 2D ECHO LV Diastolic Diameter PLAX 4.2 cm 4.2 - 5.9 / 3.9 - 5.3 cm IVS Diastolic Thickness 1.4 cm 0.6 - 1.0 / 0.6 - 0.9 cm IVS Systolic Thickness 1.8 cm LVPW Diastolic Thickness 1.5 cm 0.6 - 1.0 / 0.6 - 0.9 cm LVPW Systolic Thickness 1.7 cm LVOT Diameter 2.1 cm LV Ejection Fraction 2D Teich 52.8 % LV Ejection Fraction MOD 4C 54.9 % LV Ejection Fraction MOD 2C 62.7 % LV Ejection Fraction 2C AL 64.1 % LA Diameter 5.4 cm Aorta at Sinotubular Diameter 2.8 cm IVC Diameter 2.5 cm M-MODE LA Ao Ratio MM 1.8 AV Cusp Separation MM 2.1 cm DOPPLER AV Peak Velocity 121.0 cm/s LVOT Peak Velocity 60.0 cm/s AV Area Cont Eq vti 1.9 cm squared AV Area Cont Eq pk 1.8 cm squared MV Peak Velocity 121.0 cm/s MV Area PHT 5.1 cm squared Mitral E to A Ratio 105.5 TR Peak Velocity 329.0 cm/s TR Peak Gradient 43.3 mmHg TV Peak E Velocity 61.0 cm/s PV Peak Velocity 105.0 cm/s FINDINGS Left Ventricle Normal LV size with borderline ejection fraction of 50 to 55%. Dyskinetic mid and apical septum and anteroseptal segments. Right Ventricle Normal right ventricular size and systolic function. Right Atrium Mildly increased right atrial size. Left Atrium Severely increased left atrial size. Mitral Valve Mild mitral annular calcification. Aortic Valve Thickened aortic valve. Tricuspid Valve Mild tricuspid valve regurgitation. Estimated pulmonary artery peak systolic pressure 51 mmHg Pulmonic Valve Pulmonic valve not well visualized. Pericardium Normal pericardium without effusion. Aorta Normal ascending aorta dimension. IVC Normal IVC dimension with <50% respiratory change of the inferior vena cava. CONCLUSIONS Normal LV size with borderline ejection fraction of 50 to 55%. Dyskinetic mid and apical septum and anteroseptal segments-most likely suggesting ischemia/infarction in this area. Mildly increased right atrial size. Severely increased left atrial size. Mild mitral annular calcification. Thickened aortic valve. Mild tricuspid valve regurgitation. Estimated pulmonary artery peak systolic pressure 51 mmHg There is no pericardial effusion. There are no intracardiac masses. Compared to the study from 07/27/2024, the wall motion abnormality appears to be new with a slight drop in the ejection fraction Dr Norris Jiang MD FACC (Electronically Signed) Final Date: 15 November 2024 09:37 S
--- NOTE | 2024-11-15 00:39 | P.HP_ITS ---
Providers/Chief Complaint 2 Admitting Physician: Soco Pabon MD Primary Care Provider: Argenis Costa DO Chief Complaint: POST CODE History of Present Illness Marifer Loza is a 74 year old female with a past medical history of COPD, CHF, CMC, status post right BKA 3 to 4 years ago for osteomyelitis, diabetes mellitus. Patient was reportedly in her usual state of health until about 3 PM this afternoon when she was shopping with her family. Shortly after having lunch, she felt as if she had a bread stick stuck in her chest. She described the sensation as being that of dysphagia and a tightness. She came home afterwards and when family went in to check in on her a few hours later she was found to be short of breath. She stated it was hard to breathe. EMS was called in and reportedly her O2 sat upon EMS arrival was at 73%. She was helped into the ambulance however on the way to the emergency room suffered a cardiac arrest. Reportedly she was bradycardic prior to the arrest. She ended up receiving atropine, 2 rounds of epi and CPR. She was intubated and routed to the emergency room. At the time of this assessment patient is currently intubated, sedated, on fentanyl and Versed. History is provided by family members at bedside. They report that patient has been diagnosed with multiple bouts of pneumonia over the past 1 month for which she has had several courses of antibiotics including amoxicillin, augmentin, cipro most recently. Symptoms were described as increase sputum production and cough. No fever. Review of chart additionally notes patient being on prednisone 40 1 month ago, however family is unable to confirm if patient was taking steroids recently. She has additionally been treated for recurrent E. coli UTI with ciprofloxacin and nitrofurantoin. Review of Systems 2 General: Reports: ROS unobtainable due to endotracheal tube and ROS unobtainable due to medical condition Medications/Allergies Home Medications ?Medication ?Instructions ?Recorded ?Confirmed ?Last Taken ?Type aspirin 81 mg tablet,delayed 81 mg PO DAILY@0700 03/3011/07/24 03/30/20 History release HAND CONTROLS FOR VEHICLE #1 ea 07/25/20 11/07/24 Unk nown Rx blood sugar diagnostic #100 ea 10/28/20 11/07/24 Un known Rx CPAP mask and tubing #1 ea 11/20/21 11/07/24 Unkn own Rx Replacement armrests for wheelchair #1 ea 11/20/21 Unknown Rx RSV Vaccine #1 ea 01/14/23 11/07/24 Unkn own Rx syringes with needles for SQ #100 ea 01/20/23 11/07/24 Unknown Rx injection Diabetic shoes #1 ea 10/07/23 11/07/24 Unkn own Rx mecobalamin (vitamin B12) 5,000 mcg PO 10/22/23 Unknown History mcg disintegrating tablet clonidine HCl 0.1 mg tablet See Rx Instructions .Route 12/03/23 11/07/24 Unknown Rx .COMPLEX #90 tabs ondansetron HCl 4 mg tablet See Rx Instructions .Route 02/02/24 11/07/24 Unknown Rx .COMPLEX #30 tabs standup rollator #1 ea 02/03/24 11/07/24 Unkn own Rx AUTO TITRATING CPAP 8-13CM with #1 ea 02/16/24 5 Unknown Rx supplies Nebulizer and supplies #1 ea 02/16/24 11/07/24 Unkn own Rx alcohol swabs 1 pad topical DIRECTED #2 00 ea 02/17/24 11/07/24 Unknown Rx blood sugar diagnostic (Blood #200 ea 02/17/24 5 Unknown Rx Glucose Test strips) blood-glucose meter #1 ea 02/17/24 11/07/24 Unkn own Rx lancets #200 ea 02/17/24 11/07/24 Un known Rx Below the knee amputation Supplies #1 ea 05/26/2410/14 Unknown Rx silver sulfadiazine 1 % topical 1 applic topical BID # 50 grams 06/08/24 11/07/24 Unknown Rx cream (Silvadene) triamcinolone acetonide 0.1 % 1 applic topical BID #45 3.6 grams 06/08/24 11/07/24 Unknown Rx topical cream albuterol sulfate 2.5 mg/3 mL 2.5 mg (3 mL) inhalation Q4H PRN 06/12/24 11/07/24 Unknown Rx (0.083 %) solution for nebulization shortness of breat h or wheezing #75 mL hydrochlorothiazide 50 mg tablet 50 mg PO BID #180 tab s 06/12/24 11/07/24 Unknown Rx icosapent ethyl 1 gram capsule 2 g (2 x 1 gram) PO BID #360 caps 07/10/24 11/07/24 Unknown Rx (Vascepa) meloxicam 15 mg tablet 15 mg PO DAILY #90 tabs 06/1411/07/24 Unknown Rx albuterol sulfate 90 mcg/actuation See Rx Instructions .Route 07/21/24 11/07/24 Unknown Rx aerosol inhaler .COMPLEX #6.7 grams fluticasone fur. 100 mcg-umeclid 1 inh inhalation KAREN Y #60 ea 07/21/24 11/07/24 Unknown Rx 62.5 mcg-vilant 25 mcg inhalat.powder (Trelegy Ellipta) metformin 500 mg tablet 500 mg .Route BID #180 tabs 07/21/24 11/07/24 Unknown Rx nifedipine 60 mg tablet,extended 60 mg PO DAILY #90 ta bs 07/21/24 11/07/24 Unknown Rx release 24 hr potassium chloride 10 mEq 20 meq (2 x 10 mEq) PO DAILY 90 07/21/24 11/07/24 Unknown Rx tablet,extended release(part/cryst) days #180 tabs solifenacin 10 mg tablet (Vesicare) 10 mg PO DAILY #90 tabs 08/18/24 11/07/24 Unknown Rx fluticasone propionate 50 See Rx Instructions .Route 0 09/18/24 11/07/24 Unknown Rx mcg/actuation nasal .COMPLEX #16 grams spray,suspension semaglutide 0.25 mg or 0.5 mg (2 See Rx Instructions . Route 09/18/24 11/07/24 Unknown Rx mg/3 mL) subcutaneous pen injector .COMPLEX #3 mL (Ozempic) nitroglycerin 0.4 mg sublingual 0.4 mg sublingual Q5M PRN CHEST 09/19/24 11/07/24 Unknown Rx tablet PAINS #30 tabs amoxicillin 875 mg-potassium 1 tab PO BID #20 tabs 11/07/24 Unknown Rx clavulanate 125 mg tablet gabapentin 600 mg tablet 600 mg PO TID 30 days #90 ta bs 09/25/24 11/07/24 Unknown Rx prednisone 20 mg tablet 40 mg (2 x 20 mg) PO DAILY # 10 tabs 09/25/24 11/07/24 Unknown Rx ciprofloxacin HCl 500 mg tablet 500 mg PO BID 7 days # 14 tabs 11/07/24 11/07/24 Unknown Rx atorvastatin 40 mg tablet See Rx Instructions .Route 0 11/14/24 Unknown Rx .COMPLEX #90 tabs carvedilol 12.5 mg tablet 12.5 mg PO BID #180 tabs 05/09 Unknown Rx fenofibrate nanocrystallized 145 See Rx Instructions . Route 11/14/24 Unknown Rx mg tablet .COMPLEX #90 tabs ferrous sulfate 325 mg (65 mg 325 mg PO DAILY #90 tabs 11/14/24 Unknown Rx iron) tablet (FeroSul) furosemide 40 mg tablet 40 mg PO DAILY@0700 90 days #90 11/14/24 Unknown Rx tabs losartan 100 mg tablet 100 mg PO DAILY 90 days #90 tabs 11/14/24 Unknown Rx omeprazole 40 mg capsule,delayed 40 mg PO BID 90 days #180 caps 11/14/24 Unknown Rx release sertraline 100 mg tablet See Rx Instructions .Route 0 11/14/24 Unknown Rx .COMPLEX #90 tabs Allergies Allergy/AdvReac Type Severity Reaction Status Date / Time codeine Allergy ADR-Confusi Verified 11/07/24 11:03 on bacitracin (From Triple AdvReac Mild unknown Verified 11/07/24 11:03 Antibiotic) neomycin (From Triple AdvReac Mild unknown Verified 11/07/24 11:03 Antibiotic) polymyxin B (From Triple AdvReac Mild unknown Verified 11/07/24 11:03 Antibiotic) PFSH Acute 2 PFSH: Medical History PAD (peripheral artery disease) CHF (congestive heart failure) Osteoarthritis of shoulders, bilateral Leg cramps Moderate major depression Hypertriglyceridemia Amputation stump injury Microcytic hypochromic anemia Benign essential HTN Type 2 diabetes mellitus, without long-term current use of insulin [place] (myocardial infarction) Feb 2019 Obstructive sleep apnea Hyperlipidemia COPD (chronic obstructive pulmonary disease) Diabetes mellitus type 2 in nonobese Surgical History History of below knee amputation History of cholecystectomy History of laparoscopic adjustable gastric banding Family History Other CAD (coronary artery disease) Cancer Diabetes Social History Smoking and tobacco/nicotine status: never used tobacco/nicotine Quit status (tobacco/nicotine): has quit using Year quit tobacco: 1991 Former quit date comment: PPD x Second hand smoke exposure: No Alcohol intake: never Substance/Drug Use: never Lives independently: Yes Household members: none Housing: House Marital status: / Number of children: 5 Number of grandchildren: 10 Highest education level completed: 6th Grade service: No Current occupational status: retired Current gender identity: Female Vitals/I&O/Wt Last Vital Signs Temp 95.3 F L 11/14/24 21:11 Pulse 75 11/15/24 00:15 Resp 18 11/15/24 00:15 BP 184/105 11/15/24 00:15 Pulse Ox 94 11/15/24 00:15 O2 Del Method Mechanical Ventilation 11/14/24 21:11 FiO2 50 11/14/24 21:29 Weight last 48 hrs Weight 113.398 kg Physical Exam 2 Narrative: General: intubated, sedated HEENT: PERRLA, pupils bilaterally equal and reactive, pallors not present Chest: crackles to auscultation B/L CVS: S1-S2 regular, no murmurs, no tachycardia, no gallops, no rubs Abdomen: Soft, nontender, no organomegaly, bowel sounds present Neuro: intubated, sedated Extremities: right BKA, small sb seen over mid stump, no signs of cellulitis or abscess. Urinary Catheter Management: Gusman: Cath Placed During This Visit: yes Urinary Catheter Date of Insertion: 11/14/24 Urinary Catheter Time of Insertion: 22:00 Data 11/14/24 21:44 11/14/24 21:44 Micro: Microbiology 11/14/24 21:49 Blood Culture - Preliminary Blood SPECIMEN COLLECTED 11/14/24 21:44 Blood Culture - Preliminary Blood SPECIMEN COLLECTED Other data: Radiology Impressions Chest X-Ray 11/14/24 21:12 IMPRESSION: Endotracheal tube 4.7 cm from johann. Nasogastric tube terminating in the distal esophagus. Findings suspicious for decompensated congestive heart failure pulmonary edema. Gastric band in abnormal position and further workup is recommended to exclude slippage. See above Abdomen/Pelvis CT 11/14/24 22:42 IMPRESSION: 1. Findings in the lower lung zones most concerning for abnormalities related to decompensated congestive heart failure pulmonary edema pleural effusions as above noted 2. Nasogastric tube terminating in the distal esophagus just above the GE junction which is slightly dilated. 3. Abnormal location or appearance for a gastric band concerning for slippage and further evaluation in this regard recommended. 4. Decompressed thickened colon colitis not excluded Head CT 11/14/24 22:43 IMPRESSION: No definite acute intracranial abnormality. Laboratory Results WBC 21.91 10^3/uL (3.29-11.43) H 11/14/24 21:44 RBC 4.00 10^6/uL (3.85-5.65) 11/14/24 21:44 Hgb 10.40 g/dL (11.27-16.99) L 11/14/24 21:44 Hct 33.8 % (36-47) L 11/14/24 21:44 MCV 84.5 fl (85-98) L 11/14/24 21:44 MCH 26.0 pg (27-33) L 11/14/24 21:44 MCHC 30.8 g/dL (30-55) 11/14/24 21:44 RDW 15.3 % (12.1-15.1) H 11/14/24 21:44 Plt Count 328 10^3/cmm (157-399) 11/14/24 21:44 MPV 9.4 fL (7.4-10.4) 11/14/24 21:44 Neut % (Auto) 83.0 % 11/14/24 21:44 Lymph % (Auto) 8.3 % 11/14/24 21:44 Hemphill % (Auto) 1.9 % 11/14/24 21:44 Eos % (Auto) 2.0 % 11/14/24 21:44 Baso % (Auto) 0.5 % 11/14/24 21:44 Neut # (Auto) 18.20 10^3/uL (1.8-7.7) H 11/14/24 21:44 Lymph # (Auto) 1.8 10^3/uL (0.8-4.8) 11/14/24 21:44 Hemphill # (Auto) 0.4 10^3/uL (0.2-0.9) 11/14/24 21:44 Eos # (Auto) 0.4 10^3/uL (0.0-0.8) 11/14/24 21:44 Baso # (Auto) 0.1 10^3/uL (0.0-0.1) 11/14/24 21:44 Nucleated RBC % (auto) 0 % 11/14/24 21:44 Nucleated RBCs # 0.0 /100WBC 11/14/24 21:44 APTT 30.8 SECONDS (23.9-36.7) 11/14/24 21:44 Specimen Type Arterial 11/14/24 21:08 Sample Site Radial, right 11/14/24 21:08 ABG pH 7.16 (7.35-7.45) L* 11/14/24 21:08 ABG pCO2 58.0 mmHg (35-45) H 11/14/24 21:08 ABG pO2 506.0 mmHg (80.0-100.0) H 11/14/24 21:08 ABG PO2/FiO2 Ratio 506 11/14/24 21:08 ABG HCO3 20.7 mmol/L (22-26) L 11/14/24 21:08 ABG O2 Saturation 98.7 11/14/24 21:08 ABG Base Excess -8.3 mmol/L (-2.0-2.0) L 11/14/24 21:08 Mark Test Pos 11/14/24 21:08 A-a O2 Gradient 16.3 mmHg (5-10) H 11/14/24 21:08 Hematocrit 35.1 % (37-47) L 11/14/24 21:08 Hgb O2 Saturation 96.3 % (95-100) 11/14/24 21:08 Carboxyhemoglobin 0.5 %THgb (0.4-20.1) 11/14/24 21:08 Methemoglobin 2.0 % (0.4-1.5) H 11/14/24 21:08 Total Hemoglobin 11.5 g/dL (12-16) L 11/14/24 21:08 Sodium 126.0 mmol/L (131-143) L 11/14/24 21:08 Potassium 4.5 mmol/L (3.5-5.0) 11/14/24 21:08 Glucose 422.0 mg/dL (70-115) H 11/14/24 21:08 Ionized Calcium 1.1 mmol/L (1.1-1.4) 11/14/24 21:08 O2 Delivery Device Ambu 11/14/24 21:08 FiO2 100.0 % 11/14/24 21:08 Adjunct Physical Education Instructor ID vianney 11/14/24 21:08 Sodium 126 mmol/L (136-145) L 11/14/24 21:44 Potassium 4.4 mmol/L (3.5-5.1) 11/14/24 21:44 Chloride 89 mmol/L (98-107) L 11/14/24 21:44 Carbon Dioxide 22 mmol/L (22-29) 11/14/24 21:44 Anion Gap 19.4 (5-19) H 11/14/24 21:44 BUN 25 mg/dL (8-23) H 11/14/24 21:44 Creatinine 1.0 mg/dL (0.5-0.9) H 11/14/24 21:44 GFR Calculation Not Reportable 11/14/24 21:44 Glucose 384 mg/dL (65-115) H 11/14/24 21:44 Calculated Osmolality 282 mOsm/kg (285-295) L 11/14/24 21:44 Calcium 8.0 mg/dL (8.5-10.5) L 11/14/24 21:44 Total Bilirubin 1.3 mg/dL (0.15-1.2) H 11/14/24 21:44 AST 70 U/L (0-32) H 11/14/24 21:44 ALT 50 U/L (0-33) H 11/14/24 21:44 Alkaline Phosphatase 48 U/L (35-105) 11/14/24 21:44 Creatine Kinase 122 U/L (26-192) 11/14/24 21:44 Troponin T Baseline 23 ng/L (0-10) H 11/14/24 21:44 Troponin T 120 Minute 50.02 ng/L (0-10) H 11/14/24 23:44 Delta Troponin T 27.02 ABS# (0-10) H* 11/14/24 23:44 Total Protein 6.4 g/dL (6.6-8.7) L 11/14/24 21:44 Albumin 3.8 g/dL (3.5-5.2) 11/14/24 21:44 Globulin 2.6 g/dL (1.3-4.6) 11/14/24 21:44 Urine Color Yellow (Yellow) 11/14/24 22:07 Urine Appearance Clear (CLEAR) 11/14/24 22:07 Urine pH 5.5 (5-7) 11/14/24 22:07 Ur Specific [place] 1.018 (1.005-1.030) 11/14/24 22:07 Urine Protein 3+ (Negative) A 11/14/24 22:07 Urine Glucose (UA) 2+ (Normal) H 11/14/24 22:07 Urine Ketones Trace (Negative) 11/14/24 22:07 Urine Blood 1+ (Negative) A 11/14/24 22:07 Urine Nitrate Negative (Negative) 11/14/24 22:07 Urine Bilirubin Negative (Negative) 11/14/24 22:07 Urine Urobilinogen 1.0 mg/dL (Negative) 11/14/24 22:07 Ur Leukocyte Esterase Negative (Negative) 11/14/24 22:07 Urine RBC 0-2 /hpf (0-2) 11/14/24 22:07 Urine WBC 0-5 /hpf (0-5) 11/14/24 22:07 Ur Squamous Epith Cells 0-5 /hpf (0-5) 11/14/24 22:07 Amorphous Sediment Not Reportable 11/14/24 22:07 Urine Bacteria None seen /hpf (NONE) 11/14/24 22:07 Hyaline Casts 23.14 /lpf 11/14/24 22:07 Influenza A (PCR) Negative (Negative) 11/14/24 22:37 Influenza Type B (PCR) Negative (Negative) 11/14/24 22:37 RSV (PCR) Negative (Negative) 11/14/24 22:37 SARS-CoV-2 (PCR) Negative (Negative) 11/14/24 22:37 A&P Assessment and plan 1. CHF (congestive heart failure): 2. NSTEMI (non-ST elevated myocardial infarction): 3. Acute respiratory failure with hypoxemia: 4. Cardiac arrest: 5. Pulmonary edema: 6. Pneumonia: 7. COPD (chronic obstructive pulmonary disease): Plan: 74-year-old lady with a past medical history as noted above, currently presenting to the hospital with what appears to be respiratory distress leading to bradycardic cardiac arrest. Hypoxic respiratory failure causes currently under evaluation Differentials include pulmonary edema as chest x-ray notes bilateral diffuse infiltrates. Other possibilities would be that of COPD exacerbation versus atypical pneumonia given that patient has been on multiple antibiotics over the course of the past month as reported by family. EKG does not show any acute ST-T wave changes. Baseline troponin noted to be mildly elevated, trending up at 2 hours with a delta of 20. Possibly elevated troponins may be related to post CPR versus NSTEMI. 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 Last echocardiogram dating back to July 2024 notes a grade 4 diastolic dysfunction. Patient has lower extremity pitting edema therefore acute on chronic diastolic CHF exacerbation is in the differential. Lasix 40 mg IV every 12 hours to be started now Closely monitor kidney function and renal output. Obtain CT of the chest to evaluate for PE. Start heparin drip for NSTEMI, aspirin 325 mg now followed by 81 mg p.o. daily. Continue to trend troponins at 6-hour DuoNeb every 6 hours and elation, budesonide 0.5 mg twice daily and elation. Currently do not hear significant wheezing on exam therefore holding off on steroids. For potentially atypical infectious process, started on piperacillin/tazobactam and azithromycin while undergoing infectious source evaluation. CTA of the chest is awaited which can further help characterize the pulmonary infiltrates while also evaluating for PE. Repeat ABG with a.m. labs. Check sputum culture, urine Legionella and bacterial antigen panel. Insulin sliding scale for diabetes management. Blood culture taken and pending. Continue respiratory support with mechanical ventilation. Currently on 50% FiO2, PEEP of 5, respiratory rate of 15. Will repeat ABG with a.m. labs. CT of the abdomen and pelvis performed earlier today raises concern for potential slippage of her previous gastric band. Do not see any free air on the CT abdomen. Will consult general surgery to further evaluate DVT prophylaxis: Currently on a heparin drip Full code PDMP PDMP Reviewed: Not Reviewed Attestations 2 Medical Necessity Statement*: Greater than 2 midnight stay is anticipated Critical Care Time: The high probability of a clinically significant, sudden or life threatening deterioration of the patient's [cardiac,respiratory] system(s) required my full and direct attention, intervention and personal management. The critical care time is as shown. This time is in addition to time spent performing any reported procedures but includes the following: [x] Data and vital sign review and interpretation [x] Patient assessment, examination and intervention [x] Documentation [x] Medication orders and management Critical Care Time (min): 55 Coding Level of Care Code Critical Care >/= 30 minutes Diagnoses CHF (congestive heart failure) I50.9 NSTEMI (non-ST elevated myocardial infarction) I21.4 Acute respiratory failure with hypoxemia J96.01 Cardiac arrest I46.9 Pulmonary edema J81.1 Pneumonia J18.9 COPD (chronic obstructive pulmonary disease) J44.9
--- NOTE | 2024-11-15 00:58 | PC.NURSE ---
THIS RN ATTEMPTED TO PLACE A OROGASTRIC TUBE AND HIT RESISTANCE AROUND 50CM. THIS NURSE PULLED THE OROGASTRIC TUBE OUT AND NOTICED PIECES OF FOOD AT THE END OF THE TUBE. ER MD NOTIFIED AND HOSPITALIST WAS NOTIFIED. VERBAL ORDER BY HOSPITALIST TO LEAVE OROGASTRIC TUBE OUT PENDING SURGERY CONSULT.
[2024-11-15] MEDS: piperacillin-tazobactam 3.375 GM in sodium chloride 0.9% (plus) 50 ML IV ×3 (01:56→18:04)
[2024-11-15] MEDS: FUROsemide 10 mg/mL SDV 4mL 40 MG IVP ×2 (01:56→13:29)
--- NOTE | 2024-11-15 03:14 | ECG_ITS ---
[facility]: 2024[facility]15 Pat Name: Marifer Loza Department: Room: 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 Measurements Intervals [place] Rate: 69 P: 0 OR: 0 QRS: 11 QRSD: 115 T: 3 QT: 509 QTc: 549 Interpretive Statements ATRIAL FIBRILLATION LOW QRS VOLTAGE IN EXTREMITY LEADS [QRS DEFLECTION < 0.5 mV IN LIMB LEADS] ANTEROSEPTAL MYOCARDIAL INFARCTION , OF INDETERMINATE AGE [40+ ms Q WAVE IN V1-V4] Compared to ECG 11/14/2024 21:14:02 Low QRS voltage now present Intraventricular conduction delay no longer present Myocardial infarct finding still present Electronically Signed On 11-17-2024 20:48:00 CDT by Norris Jiang M.D. [email or web address]
[2024-11-15] MEDS: heparin 5,000 unit/mL INJ 1 mL IVP ×2 (03:15→18:10)
[2024-11-15] MEDS: heparin drip 25,000 UNIT/500 ML PREMIX 35 UNIT IV (03:19)
[2024-11-15 03:58] LABS: Platelet Count 249 10^3/cmm (157-399)
[2024-11-15 04:23] LABS: Troponin 5 6HR 78.31 ng/L (0-10)
[2024-11-15 04:25] LABS: Lactic Sepsis W/Reflex 1.7 mmol/L (0.5-2.2)
[2024-11-15 04:31] LABS: Troponin 5 6HR Delta 55.31 ng/L (0-12)
[2024-11-15 04:34] LABS: NT Pro B Type Natriuretic Pept 3652 pg/mL (0-450); Thyroid Stimulating Hormone 3.14 uIU/mL (0.27-4.20)
[2024-11-15 05:12] LABS: ABG PCO2 48.8 mmHg (35-45); ABG PH Result 7.33 (7.35-7.45); Arterial Blood Gas Hematocrit 33.1 % (37-47); Blood Gas Allen Test Pos; Blood Gas Operator Identificat JDB; Blood Gas Sample Site Radial, right; Blood Gas Sample Type Arterial; Blood Gas Tidal Volume 0.40; HCO3 ABG 25.7 mmol/L (22-26); PEEP 5.0 cmH20; PO2 ABG 108.0 mmHg (80.0-100.0); PO2 FiO2 Ratio Arterial Blood 216
--- NOTE | 2024-11-15 07:08 | PM.CONSULT ---
Providers/Reason For Consult Consulting Physician/Specialty*: Dr. Ribera general surgery Reason for Consult*: Rule out esophageal obstruction Attending Physician: Soco Pabon MD Primary Care Provider: Argenis Costa DO History of Present Illness History of Present Illness Marifer Loza is a 74 year old female who presented status post arrest. Surgery consulted due to concern for slipped gastric band. Medicine wants to ensure patient is not obstructed. Patient is intubated and sedated. On mechanical ventilation. I reviewed the CT scan and there is no evidence of any obstruction. Medications/Allergies Home Medications ?Medication ?Instructions ?Recorded ?Confirmed ?Last Taken ?Type aspirin 81 mg tablet,delayed 81 mg PO DAILY@0700 03/30/20 11/15/24 03/30/20 History release HAND CONTROLS FOR VEHICLE #1 ea 07/25/20 11/15/24 Unknown Rx blood sugar diagnostic #100 ea 10/28/20 11/15/24 Unknown Rx CPAP mask and tubing #1 ea 11/20/21 11/15/24 Unknown Rx Replacement armrests for wheelchair #1 ea 11/20/21 11/15/24 Unknown Rx RSV Vaccine #1 ea 01/14/23 11/15/24 Unknown Rx syringes with needles for SQ #100 ea 01/20/23 11/15/24 Unknown Rx injection Diabetic shoes #1 ea 10/07/23 11/15/24 Unknown Rx mecobalamin (vitamin B12) 5,000 5,000 mcg PO DAILY 10/22/23 11/15/24 Unknown History mcg disintegrating tablet clonidine HCl 0.1 mg tablet See Rx Instructions .Route 12/03/23 11/15/24 Unknown Rx .COMPLEX #90 tabs standup rollator #1 ea 02/03/24 11/15/24 Unknown Rx AUTO TITRATING CPAP 8-13CM with #1 ea 02/16/24 11/15/24 Unknown Rx supplies Nebulizer and supplies #1 ea 02/16/24 11/15/24 Unknown Rx blood sugar diagnostic (Blood #200 ea 02/17/24 11/15/24 Unknown Rx Glucose Test strips) blood-glucose meter #1 ea 02/17/24 11/15/24 Unknown Rx lancets #200 ea 02/17/24 11/15/24 Unknown Rx Below the knee amputation Supplies #1 ea 05/26/24 11/15/24 Unknown Rx silver sulfadiazine 1 % topical 1 applic topical BID #50 grams 06/08/24 11/15/24 Unknown Rx cream (Silvadene) triamcinolone acetonide 0.1 % 1 applic topical BID #453.6 grams 06/08/24 11/15/24 Unknown Rx topical cream albuterol sulfate 2.5 mg/3 mL 2.5 mg (3 mL) inhalation Q4H PRN 06/12/24 11/15/24 Unknown Rx (0.083 %) solution for nebulization shortness of breath or wheezing #75 mL hydrochlorothiazide 50 mg tablet 50 mg PO BID #180 tabs 06/12/24 11/15/24 Unknown Rx icosapent ethyl 1 gram capsule 2 g (2 x 1 gram) PO BID #360 caps 07/10/24 11/15/24 Unknown Rx (Vascepa) meloxicam 15 mg tablet 15 mg PO DAILY #90 tabs 07/10/24 11/15/24 Unknown Rx albuterol sulfate 90 mcg/actuation See Rx Instructions .Route 07/21/24 11/15/24 Unknown Rx aerosol inhaler .COMPLEX #6.7 grams fluticasone fur. 100 mcg-umeclid 1 inh inhalation DAILY #60 ea 07/21/24 11/15/24 Unknown Rx 62.5 mcg-vilant 25 mcg inhalat.powder (Trelegy Ellipta) nifedipine 60 mg tablet,extended 60 mg PO DAILY #90 tabs 07/21/24 11/15/24 Unknown Rx release 24 hr potassium chloride 10 mEq 20 meq (2 x 10 mEq) PO DAILY 90 07/21/24 11/15/24 Unknown Rx tablet,extended release(part/cryst) days #180 tabs solifenacin 10 mg tablet (Vesicare) 10 mg PO DAILY #90 tabs 08/18/24 11/15/24 Unknown Rx fluticasone propionate 50 See Rx Instructions .Route 09/18/24 11/15/24 Unknown Rx mcg/actuation nasal .COMPLEX #16 grams spray,suspension nitroglycerin 0.4 mg sublingual 0.4 mg sublingual Q5M PRN CHEST 09/19/24 11/15/24 Unknown Rx tablet PAINS #30 tabs gabapentin 600 mg tablet 600 mg PO TID 30 days #90 tabs 09/25/24 11/15/24 Unknown Rx ciprofloxacin HCl 500 mg tablet 500 mg PO BID 7 days #14 tabs 11/07/24 11/15/24 Unknown Rx atorvastatin 40 mg tablet See Rx Instructions .Route 11/14/24 11/15/24 Unknown Rx .COMPLEX #90 tabs carvedilol 12.5 mg tablet 12.5 mg PO BID #180 tabs 11/14/24 11/15/24 Unknown Rx ferrous sulfate 325 mg (65 mg 325 mg PO DAILY #90 tabs 11/14/24 11/15/24 Unknown Rx iron) tablet (FeroSul) furosemide 40 mg tablet 40 mg PO DAILY@0700 90 days #90 11/14/24 11/15/24 Unknown Rx tabs losartan 100 mg tablet 100 mg PO DAILY 90 days #90 tabs 11/14/24 11/15/24 Unknown Rx omeprazole 40 mg capsule,delayed 40 mg PO BID 90 days #180 caps 11/14/24 11/15/24 Unknown Rx release fenofibrate nanocrystallized 145 145 mg PO DAILY 11/15/24 11/15/24 Unknown History mg tablet metformin 500 mg tablet 500 mg PO BID 11/15/24 11/15/24 Unknown History semaglutide 0.25 mg or 0.5 mg (2 0.5 mg SUBCUT Q7D 11/15/24 11/15/24 Unknown History mg/3 mL) subcutaneous pen injector (Ozempic) sertraline 100 mg tablet 100 mg PO .@7AM 11/15/24 11/15/24 Unknown History Allergies Allergy/AdvReac Type Severity Reaction Status Date / Time codeine Allergy ADR-Confusi Verified 11/07/24 11:03 on bacitracin (From Triple AdvReac Mild unknown Verified 11/07/24 11:03 Antibiotic) neomycin (From Triple AdvReac Mild unknown Verified 11/07/24 11:03 Antibiotic) polymyxin B (From Triple AdvReac Mild unknown Verified 11/07/24 11:03 Antibiotic) Current Medications Generic Name Dose Route Start Last Admin Trade Name Freq PRN Reason Stop Dose Admin Aspirin 81 mg 11/15/24 07:00 11/15/24 06:41 Aspirin 81 Mg Ec Tablet PO Not Given DAILY@0700 BRIELLE Azithromycin 500 mg 11/15/24 01:15 11/15/24 02:02 Azithromycin 250 Mg Tablet NG-TUBE Not Given BEDTIME BRIELLE Protocol Furosemide 40 mg 11/15/24 00:45 11/15/24 01:56 Furosemide 10 Mg/Ml Sdv 4ml IVP 40 mg Q12H BRIELLE Administration Midazolam HCl 100 mg in 100 mls @ 0 mls/hr 11/14/24 21:15 11/15/24 05:07 Versed IV 3 mg/hr .Q0M BRIELLE 3 mls/hr Protocol Titration Per Protocol Fentanyl 1,000 mcg in 100 mls @ 0 mls/hr 11/14/24 21:15 11/15/24 02:51 Sublimaze IV 75 mcg/hr .Q0M BRIELLE 7.5 mls/hr Protocol Titration Per Protocol Piperacillin Sod/Tazobactam 50 mls @ 12.5 mls/hr 11/15/24 02:00 11/15/24 03:23 Sod 3.375 gm/ Sodium Chloride IV 12.5 mls/hr Q8H BRIELLE Infusion Heparin Sodium/Sodium Chloride 25,000 unit in 500 mls @ 0 mls/hr 11/15/24 02:20 11/15/24 03:19 Heparin Drip IV 14.21 unit/kg/hr CONT BRIELLE 35 mls/hr Protocol Administration Per Protocol PFSH Acute PFSH: Medical History (Updated 11/15/24 @ 03:34 by Agustin Velazco DO) PAD (peripheral artery disease) CHF (congestive heart failure) Osteoarthritis of shoulders, bilateral Leg cramps Moderate major depression Hypertriglyceridemia Amputation stump injury Microcytic hypochromic anemia Benign essential HTN Type 2 diabetes mellitus, without long-term current use of insulin [place] (myocardial infarction) Feb 2019 Obstructive sleep apnea Hyperlipidemia COPD (chronic obstructive pulmonary disease) Diabetes mellitus type 2 in nonobese Surgical History (Updated 11/15/24 @ 11:59 by Elfego Ribera MD) History of below knee amputation History of cholecystectomy History of laparoscopic adjustable gastric banding Family History Other CAD (coronary artery disease) Cancer Diabetes Social History Smoking and tobacco/nicotine status: never used tobacco/nicotine Quit status (tobacco/nicotine): has quit using Year quit tobacco: 1991 Former quit date comment: PPD x Second hand smoke exposure: No Alcohol intake: never Substance/Drug Use: never Lives independently: Yes Household members: none Housing: House Marital status: / Number of children: 5 Number of grandchildren: 10 Highest education level completed: 6th Grade service: No Current occupational status: retired Current gender identity: Female Vitals/I&O/Wt Last Vital Signs Temp 95.3 F L 11/14/24 21:11 Pulse 52 L 11/15/24 06:00 Resp 21 H 11/15/24 03:45 BP 135/75 11/15/24 05:00 Pulse Ox 98 11/15/24 05:00 O2 Del Method Mechanical Ventilation 11/15/24 02:23 FiO2 40 11/15/24 05:21 11/14/24 11/15/24 11/15/24 22:59 06:59 14:59 Intake Total 43.717 / 43.717 Balance 43.717 / 43.717 Weight last 48 hrs Weight 271 lb 2.697 oz Weight 250 lb Physical Exam Narrative: Chest: Mechanical ventilation. Intubated. Heart: Regular rate and rhythm. Abdomen: Soft, nontender, nondistended. Urinary Catheter Management: Gusman: Cath Placed During This Visit: yes Urinary Catheter Date of Insertion: 11/14/24 Urinary Catheter Time of Insertion: 22:00 Data 11/15/24 03:40 11/14/24 21:44 Micro: Microbiology 11/15/24 05:15 Legionella Urinary Antigen - Final Urine Catheterized 11/14/24 21:49 Blood Culture - Preliminary Blood SPECIMEN COLLECTED 11/14/24 21:44 Blood Culture - Preliminary Blood SPECIMEN COLLECTED A&P Assessment and plan 1. LAP-BAND surgery status: Plan: 74-year-old female whom surgery was consulted to rule out esophageal obstruction secondary to slip gastric band. Discussed extensively with hospitalist. Will rule out esophageal obstruction with EGD. Discussed risk and benefits and patient is POA agreed to proceed with esophagogastroduodenoscopy. PDMP PDMP Reviewed: Not Reviewed Coding Level of Care Code 92376 Diagnoses LAP-BAND surgery status Z98.84
--- NOTE | 2024-11-15 08:57 | PC.PHAR ---
Pt unable to verify when she last took any medications. Pharmacy verified meds and filled many new orders on 11/14/24- they have not been picked up yet.
[2024-11-15] MEDS: fentaNYL 1,000 MCG/100 ML BAG 10 MCG IV (09:57)
[2024-11-15] MEDS: propofol 1,000 MG/100 ML INJ 3.69 MG IV (10:03)
[2024-11-15] MEDS: pantoprazole 40 mg SDV IVP (10:08)
[2024-11-15] MEDS: dexmedeTOMIDine 0.9 % NaCL 400 MCG/100 ML PREMIX IV (10:10)
--- NOTE | 2024-11-15 10:37 | ANES.PREANE2 ---
Pre-Anesthetic Assessment Height/Weight: Height 1.78 m Weight 123 kg Temp Pulse Resp BP Pulse Ox O2 Del Method FiO2 95.3 F L 57 L 16 135/75 94 Mechanical Ventilation 40 11/14/24 21:11 11/15/24 07:59 11/15/24 09:44 11/15/24 05:00 11/15/24 09:44 11/15/24 07:59 11/15/24 09:44 Operation Date: 11/15/24 12:10 Proposed Procedures p EGD(Not Applicable) - Elfego Ribera MD Familial anesthetic complications: none Social No alcohol and No tobacco Exam clear to auscultation bilaterally and regular rate & rhythm Pulmonary Chronic Obstructive Pulmonary Disease and Sleep Apnea pneumonia CV/HEM Congestive Heart Failure, Hypertension, Myocardial Infarction and Peripheral Vascular Disease s// cardiac arrest GI Gastroesophageal Reflux Disease Anesthetic Plan ASA status: 4 Anesthesia: MAC Other: intubated and sedated, hx from chart review and family Risk of > 500 ml blood loss (7ml/kg in children): No Medications/Allergies Home Medications ?Medication ?Instructions ?Recorded ?Confirmed ?Last Taken ?Type aspirin 81 mg tablet,delayed 81 mg PO DAILY@0700 03/30/20 11/15/24 03/30/20 History release HAND CONTROLS FOR VEHICLE #1 ea 07/25/20 11/15/24 Unknown Rx blood sugar diagnostic #100 ea 10/28/20 11/15/24 Unknown Rx CPAP mask and tubing #1 ea 11/20/21 11/15/24 Unknown Rx Replacement armrests for wheelchair #1 ea 11/20/21 11/15/24 Unknown Rx RSV Vaccine #1 ea 01/14/23 11/15/24 Unknown Rx syringes with needles for SQ #100 ea 01/20/23 11/15/24 Unknown Rx injection Diabetic shoes #1 ea 10/07/23 11/15/24 Unknown Rx mecobalamin (vitamin B12) 5,000 5,000 mcg PO DAILY 10/22/23 11/15/24 Unknown History mcg disintegrating tablet clonidine HCl 0.1 mg tablet See Rx Instructions .Route 12/03/23 11/15/24 Unknown Rx .COMPLEX #90 tabs standup rollator #1 ea 02/03/24 11/15/24 Unknown Rx AUTO TITRATING CPAP 8-13CM with #1 ea 02/16/24 11/15/24 Unknown Rx supplies Nebulizer and supplies #1 ea 02/16/24 11/15/24 Unknown Rx blood sugar diagnostic (Blood #200 ea 02/17/24 11/15/24 Unknown Rx Glucose Test strips) blood-glucose meter #1 ea 02/17/24 11/15/24 Unknown Rx lancets #200 ea 02/17/24 11/15/24 Unknown Rx Below the knee amputation Supplies #1 ea 05/26/24 11/15/24 Unknown Rx silver sulfadiazine 1 % topical 1 applic topical BID #50 grams 06/08/24 11/15/24 Unknown Rx cream (Silvadene) triamcinolone acetonide 0.1 % 1 applic topical BID #453.6 grams 06/08/24 11/15/24 Unknown Rx topical cream albuterol sulfate 2.5 mg/3 mL 2.5 mg (3 mL) inhalation Q4H PRN 06/12/24 11/15/24 Unknown Rx (0.083 %) solution for nebulization shortness of breath or wheezing #75 mL hydrochlorothiazide 50 mg tablet 50 mg PO BID #180 tabs 06/12/24 11/15/24 Unknown Rx icosapent ethyl 1 gram capsule 2 g (2 x 1 gram) PO BID #360 caps 07/10/24 11/15/24 Unknown Rx (Vascepa) meloxicam 15 mg tablet 15 mg PO DAILY #90 tabs 07/10/24 11/15/24 Unknown Rx albuterol sulfate 90 mcg/actuation See Rx Instructions .Route 07/21/24 11/15/24 Unknown Rx aerosol inhaler .COMPLEX #6.7 grams fluticasone fur. 100 mcg-umeclid 1 inh inhalation DAILY #60 ea 07/21/24 11/15/24 Unknown Rx 62.5 mcg-vilant 25 mcg inhalat.powder (Trelegy Ellipta) nifedipine 60 mg tablet,extended 60 mg PO DAILY #90 tabs 07/21/24 11/15/24 Unknown Rx release 24 hr potassium chloride 10 mEq 20 meq (2 x 10 mEq) PO DAILY 90 07/21/24 11/15/24 Unknown Rx tablet,extended release(part/cryst) days #180 tabs solifenacin 10 mg tablet (Vesicare) 10 mg PO DAILY #90 tabs 08/18/24 11/15/24 Unknown Rx fluticasone propionate 50 See Rx Instructions .Route 09/18/24 11/15/24 Unknown Rx mcg/actuation nasal .COMPLEX #16 grams spray,suspension nitroglycerin 0.4 mg sublingual 0.4 mg sublingual Q5M PRN CHEST 09/19/24 11/15/24 Unknown Rx tablet PAINS #30 tabs gabapentin 600 mg tablet 600 mg PO TID 30 days #90 tabs 09/25/24 11/15/24 Unknown Rx ciprofloxacin HCl 500 mg tablet 500 mg PO BID 7 days #14 tabs 11/07/24 11/15/24 Unknown Rx atorvastatin 40 mg tablet See Rx Instructions .Route 11/14/24 11/15/24 Unknown Rx .COMPLEX #90 tabs carvedilol 12.5 mg tablet 12.5 mg PO BID #180 tabs 11/14/24 11/15/24 Unknown Rx ferrous sulfate 325 mg (65 mg 325 mg PO DAILY #90 tabs 11/14/24 11/15/24 Unknown Rx iron) tablet (FeroSul) furosemide 40 mg tablet 40 mg PO DAILY@0700 90 days #90 11/14/24 11/15/24 Unknown Rx tabs losartan 100 mg tablet 100 mg PO DAILY 90 days #90 tabs 11/14/24 11/15/24 Unknown Rx omeprazole 40 mg capsule,delayed 40 mg PO BID 90 days #180 caps 11/14/24 11/15/24 Unknown Rx release fenofibrate nanocrystallized 145 145 mg PO DAILY 11/15/24 11/15/24 Unknown History mg tablet metformin 500 mg tablet 500 mg PO BID 11/15/24 11/15/24 Unknown History semaglutide 0.25 mg or 0.5 mg (2 0.5 mg SUBCUT Q7D 11/15/24 11/15/24 Unknown History mg/3 mL) subcutaneous pen injector (Ozempic) sertraline 100 mg tablet 100 mg PO .@7AM 11/15/24 11/15/24 Unknown History Allergies Allergy/AdvReac Type Severity Reaction Status Date / Time codeine Allergy ADR-Confusi Verified 11/07/24 11:03 on bacitracin (From Triple AdvReac Mild unknown Verified 11/07/24 11:03 Antibiotic) neomycin (From Triple AdvReac Mild unknown Verified 11/07/24 11:03 Antibiotic) polymyxin B (From Triple AdvReac Mild unknown Verified 11/07/24 11:03 Antibiotic) Current Medications Generic Name Dose Route Start Last Admin Trade Name Mallory PRN Reason Stop Dose Admin Albuterol/Ipratropium 3 ml 11/15/24 08:00 11/15/24 07:59 Ipratropium-Albuterol 3 Ml Neb INHALATION 3 ml Q6H.RESP BRIELLE Administration Aspirin 81 mg 11/15/24 07:00 11/15/24 06:41 Aspirin 81 Mg Ec Tablet PO Not Given DAILY@0700 BRIELLE Azithromycin 500 mg 11/15/24 01:15 11/15/24 02:02 Azithromycin 250 Mg Tablet NG-TUBE Not Given BEDTIME BRIELLE Protocol Budesonide 0.5 mg 11/15/24 08:00 11/15/24 07:59 Budesonide 0.5 Mg/2 Ml Neb INHALATION 0.5 mg BID.RESPIRATORY BRIELLE Administration Furosemide 40 mg 11/15/24 00:45 11/15/24 01:56 Furosemide 10 Mg/Ml Sdv 4ml IVP 40 mg Q12H BRIELLE Administration Fentanyl 1,000 mcg in 100 mls @ 0 mls/hr 11/14/24 21:15 11/15/24 09:57 Sublimaze IV 100 mcg/hr .Q0M BRIELLE 10 mls/hr Protocol Administration Per Protocol Piperacillin Sod/Tazobactam 50 mls @ 12.5 mls/hr 11/15/24 02:00 11/15/24 10:16 Sod 3.375 gm/ Sodium Chloride IV 12.5 mls/hr Q8H BRIELLE Administration Heparin Sodium/Sodium Chloride 25,000 unit in 500 mls @ 0 mls/hr 11/15/24 02:20 11/15/24 03:19 Heparin Drip IV 14.21 unit/kg/hr CONT BRIELLE 35 mls/hr Protocol Administration Per Protocol Propofol 1,000 mg in 100 mls @ 0 mls/hr 11/15/24 08:45 11/15/24 10:19 Diprivan IV 10 mcg/kg/min .Q0M BRIELLE 7.38 mls/hr Protocol Titration Per Protocol Dexmedetomidine/Sodium Chloride 400 mcg in 100 mls @ 0 mls/hr 11/15/24 08:45 11/15/24 10:19 Precedex IV 0.2 mcg/kg/hr .Q0M BRIELLE 6.15 mls/hr Protocol Titration Per Protocol Insulin Human Lispro 0 unit 11/15/24 08:00 11/15/24 09:07 Insulin Lispro 100 Unit/1 Ml SUBCUT Not Given WM&BEDTIME BRIELLE Protocol Pantoprazole Sodium 40 mg 11/15/24 09:30 11/15/24 10:08 Pantoprazole 40 Mg Sdv IVP 40 mg DAILY BRIELLE Administration [facility] Anesthesia Medical History (Updated 11/15/24 @ 03:34 by Agustin Velazco DO) PAD (peripheral artery disease) CHF (congestive heart failure) Osteoarthritis of shoulders, bilateral Leg cramps Moderate major depression Hypertriglyceridemia Amputation stump injury Microcytic hypochromic anemia Benign essential HTN Type 2 diabetes mellitus, without long-term current use of insulin [place] (myocardial infarction) Feb 2019 Obstructive sleep apnea Hyperlipidemia COPD (chronic obstructive pulmonary disease) Diabetes mellitus type 2 in nonobese Surgical History History of below knee amputation History of cholecystectomy History of laparoscopic adjustable gastric banding Family History Other CAD (coronary artery disease) Cancer Diabetes Social History Smoking and tobacco/nicotine status: never used tobacco/nicotine Quit status (tobacco/nicotine): has quit using Year quit tobacco: 1991 Former quit date comment: PPD x Second hand smoke exposure: No Alcohol intake: never Substance/Drug Use: never Lives independently: Yes Household members: none Housing: House Marital status: / Number of children: 5 Number of grandchildren: 10 Highest education level completed: 6th Grade service: No Current occupational status: retired Current gender identity: Female Data Anesthesia 11/15/24 03:40 11/14/24 21:44 Short CBC 11/14/24 11/15/24 Range/Units 21:44 03:40 WBC 21.91 H (3.29-11.43) 10^3/uL Hgb 10.40 L (11.27-16.99) g/dL Hct 33.8 L (36-47) % MCV 84.5 L (85-98) fl Plt Count 328 249 (157-399) 10^3/cmm Neut % (Auto) 83.0 % Neut # (Auto) 18.20 H (1.8-7.7) 10^3/uL BMP 11/14/24 21:44 Sodium 126 L Potassium 4.4 Chloride 89 L Carbon Dioxide 22 BUN 25 H Creatinine 1.0 H Glucose 384 H Calcium 8.0 L Cardiac Enzymes 11/14/24 11/14/24 11/15/24 Range/Units 21:44 23:44 03:40 Creatine Kinase 122 (26-192) U/L Troponin T Baseline 23 H (0-10) ng/L Troponin T 120 Minute 50.02 H (0-10) ng/L Delta Troponin T 27.02 H* (0-10) ABS# Troponin T Hi Sens 6Hr 78.31 H (0-10) ng/L Troponin T Hi Sens 6Hr Delta 55.31 H* (0-12) ng/L NT-Pro-B Natriuret Pep 3652 H (0-450) pg/mL Liver Function 11/14/24 Range/Units 21:44 Total Bilirubin 1.3 H (0.15-1.2) mg/dL AST 70 H (0-32) U/L ALT 50 H (0-33) U/L Alkaline Phosphatase 48 (35-105) U/L Albumin 3.8 (3.5-5.2) g/dL Urine 11/14/24 Range/Units 22:07 Urine Color Yellow (Yellow) Urine Appearance Clear (CLEAR) Urine pH 5.5 (5-7) Ur Specific [place] 1.018 (1.005-1.030) Urine Protein 3+ A (Negative) Urine Glucose (UA) 2+ H (Normal) Urine Ketones Trace (Negative) Urine Nitrate Negative (Negative) Urine Bilirubin Negative (Negative) Ur Leukocyte Esterase Negative (Negative) Urine RBC 0-2 (0-2) /hpf Urine WBC 0-5 (0-5) /hpf COVID Results 11/14/24 22:37 SARS-CoV-2 (PCR) Negative Coags 11/14/24 21:44 APTT 30.8 ABG 11/14/24 11/15/24 21:08 04:58 Specimen Type Arterial Arterial Sample Site Radial, right Radial, right ABG pH 7.16 L* 7.33 L ABG pCO2 58.0 H 48.8 H ABG pO2 506.0 H 108.0 H ABG PO2/FiO2 Ratio 506 216 ABG HCO3 20.7 L 25.7 ABG O2 Saturation 98.7 ABG Base Excess -8.3 L -0.7 A-a O2 Gradient 16.3 H O2 Delivery Device Ambu Vent FiO2 100.0 50.0 Tidal Volume 0.40 PEEP 5.0 Microbiology 11/15/24 05:15 Bacterial Antigens - Final Urine,Voided 11/15/24 03:43 Gram Stain - Final Sputum - Endotracheal Tube Aspirate 11/15/24 05:15 Legionella Urinary Antigen - Final Urine Catheterized 11/14/24 21:49 Blood Culture - Preliminary Blood SPECIMEN COLLECTED 11/14/24 21:44 Blood Culture - Preliminary Blood SPECIMEN COLLECTED Cardiac Studies: Echocardiogram Today
[2024-11-15 11:00] LABS: ABG PCO2 45.7 mmHg (35-45); ABG PH Result 7.37 (7.35-7.45); Alveolar-Arterial Oxygen Gradi 19.4 mmHg (5-10); Arterial Blood Gas Hematocrit 32.4 % (37-47); Blood Gas Allen Test Pos; Blood Gas Operator Identificat MONRO; Blood Gas Sample Site Brachial, right; Blood Gas Sample Type Arterial; Blood Gas Tidal Volume 0.50; Carboxyhemoglobin 0.9 %THgb (0.4-20.1); Glucose Level-ABG 113.0 mg/dL (70-115); HCO3 ABG 26.5 mmol/L (22-26); Ionized Calcium Level - ABG 1.1 mmol/L (1.1-1.4); Methemoglobin 1.9 % (0.4-1.5); Oxygen Saturation ABG 94.4; PEEP 8.0 cmH20; PO2 ABG 78.2 mmHg (80.0-100.0); PO2 FiO2 Ratio Arterial Blood 195; Potassium Level - ABG 3.7 mmol/L (3.5-5.0); Sodium Level - ABG 130.0 mmol/L (131-143)
[2024-11-15 11:04] LABS: Partial Thromboplastin Time 123.9 SECONDS (23.9-36.7)
--- NOTE | 2024-11-15 11:24 | PC.NURSE ---
Addendum entered by Ronnell Yepez RN 11/15/24 11:33: This nurse witnessed CLARE Bird waste the versed. Original Note: Versed gtt wasted. Witnessed by CLARE Engel
--- NOTE | 2024-11-15 12:15 | PC.NURSE ---
Heparin gtt paused to restart at [address] Ribera.
[2024-11-15 12:20] LABS: Hematocrit 31.7 % (36-47); Hemoglobin 10.10 g/dL (11.27-16.99); Mean Corpuscular HGB Conc 31.9 g/dL (30-55); Mean Corpuscular Hemoglobin 26.4 pg (27-33); Mean Corpuscular Volume 83.0 fl (85-98); Nucleated Red Blood Cells % 0 %; Platelet Count 260 10^3/cmm (157-399); Red Blood Count 3.82 10^6/uL (3.85-5.65); White Blood Count 13.04 10^3/uL (3.29-11.43)
[2024-11-15 12:41] LABS: Alanine Aminotransferase 51 U/L (0-33); Albumin Level 3.6 g/dL (3.5-5.2); Alkaline Phosphatase 39 U/L (35-105); Anion Gap 18.0 (5-19); Aspartate Amino Transferase 49 U/L (0-32); Blood Urea Nitrogen 21 mg/dL (8-23); Calcium 8.1 mg/dL (8.5-10.5); Carbon Dioxide 24 mmol/L (22-29); Chloride 93 mmol/L (98-107); Creatinine Clr Calc Pharmacy 69.2927; Globulin 2.7 g/dL (1.3-4.6); Glucose 112 mg/dL (65-115); Osmolality Calculated 276 mOsm/kg (285-295); Potassium 4.0 mmol/L (3.5-5.1); Sodium 131 mmol/L (136-145); Total Protein 6.3 g/dL (6.6-8.7)
[2024-11-15 12:48] LABS: Procalcitonin 0.74 ng/mL (0-0.5)
--- NOTE | 2024-11-15 13:14 | XR_ITS ---
WS: [id number] Portable AP semiupright chest, 11/15/2024 Clinical Data: post picc Comparison: Portable chest, 11/14/2024 Findings: The right PICC line ends in the superior vena cava. No pneumothorax is seen. The endotracheal tube remains above the johann. XR/XR chest 1V portable [id number] Impression: Satisfactory insertion right PICC line.
--- NOTE | 2024-11-15 13:20 | PC.NURSE ---
Pt struggling pull volume for breaths. Sedation gtt increased
[2024-11-15 13:41] LABS: Troponin T (5th) Once 100 ng/L (0-10)
--- NOTE | 2024-11-15 14:21 | PICC.NOTE ---
Triple lumen PICC placed to right basilic vein. Referred to vascular access nurse for PICC placement due to multiple IV gtts and provider request. Risks and benefits discussed and informed consent obtained from pt daughter, Lisa, at bedside. Right arm assessed with right basilic vein measuring 4.1 mm, straight, and apparent best choice for placement. Using sterile technique and MST,right basilic vein accessed x 1 stick. Mid-arm circumference measured 10 cm from right AC 41 cm. Trimmed cath 50 cm with 0 cm external length noted. CXR shows tip in SVC, in good position for use per radiologist. Line secured with stat-lock. Insertion site covered with Biopatch and TSM. Report given to bedside nurse, CLARE Bird.
--- NOTE | 2024-11-15 14:30 | PC.NURSE ---
Right thumb ring removed. RIng total is 6. HEr daughter, Lisa is now in possession of her jewelry.
[2024-11-15] MEDS: midazolam 1 mg/mL INJ 2 mL 2 MG (14:49)
--- NOTE | 2024-11-15 14:54 | PC.NURSE ---
Pt not taking deep breaths, Vent alarming. O2 sats dropped to 65%. Increased FIO2 on vent to 100% (suction button only. Dr Jones, at bedside. RT notified, came to room. Versed 2mg IVP stat ordered and admin. O2 sats started increasing. After physician left room, pt's shoulders, eyebrows and eyes started twitching rhythmically. Her eyes rolled rhythmically. Dr Nelson, still in unit, notified of sezure-like activity. Reordered Versed gtt.
[2024-11-15] MEDS: propofol 1,000 MG/100 ML INJ 29.52 MG IV (15:04)
[2024-11-15] MEDS: midazolam hcl 100 MG/100 ML BAG IV (16:25)
[2024-11-15 17:19] LABS: Partial Thromboplastin Time 38.7 SECONDS (23.9-36.7)
--- NOTE | 2024-11-15 17:26 | P.PN_ITS ---
Subjective 2 Subjective: - Overnight events noted -patient's daughters at bedside - Currently Marifer is intubated, sedated o n mechanical ventilation, 40% FiO2, not requiring pressors, remains afebrile, urine output 870, does have intermittent episodes of sinus bradycardia - Patient's daughter at bedside tells me that Marifer for the last month has been dealing with abdominal distention, bloating, upper epigastric discomfort, at times associated with meals -She had her lap band placed in 2008, in [place] She has seen her primary care provider for pneumonia has been treated for pneumonia, has been treated with multiple bouts of pneumonia -she is also has been treated for UTI in the past month - According to patient's daughter yester day they were in [place], eating at a restaurant, when Marifer had eaten bread, she started experiencing upper abdominal cramping, discomfort, nausea, vomiting - She had episode of emesis - She felt a little bit better, so they got in their car, and her daughter drove her home - On the 2-hour drive back to [facility] Marifer kept having episodes of nausea, vomiting, upper abdominal discomfort, but wanted to go home - Patient went into her home which is on the bottom floor, her nephew is on the tile floor - Within 5 minutes of getting home she c alled her daughter and said help, and hung up the phone - Daughter called nephew to check up on Marifer Caicedo on examination by son who was com plaining of shortness of breath, nausea, vomiting, abdominal pain - EMS was called - According to ER provider and overnight physician, patient had a O2 sat in the 70s upon EMS arrival, on the way to [facility] - She had a respiratory arrest and/or br adycardic arrest - Received atropine, 2 rounds of epineph rine, 2 rounds of CPR, with ROSC, intubated on arrival to the emergency room - She is placed on fentanyl and Versed f or sedation - Upon arrival imaging did not show pulm onary embolism - She was found to have an NSTEMI, place d on heparin drip - CT of the abdomen shows abnormal locat ion appearance of gastric band concerning for slippage, general surgery was consulted there is plans on EGD today - She has been started on broad-spectrum antibiotic therapy, for aspiration event, aspiration pneumonia - Discussed with the daughter, patient's respiratory arrest versus bradycardic arrest, discussed following up cardiogram findings, discussing with cardiology, following up EGD results, discussing with general surgery, discussed concern for possible anoxic brain injury given her CPR, plans on weaning sedation based on clinical progress - Patient's daughter voiced davidin g, all questions answered, Marifer remains a full code - Patient underwent EGD, no findings of obstruction, recommended consideration of transfer to tertiary level center, for consideration of deflating/taking out Lap-Band - Echocardiogram results reviewed, EF 50 to 55%, dyskinetic mid and apical septum and anterior septal segments, suggesting ischemia/infarction to this area, EKG no acute ST-T wave changes, troponin 100, discussed case with cardiology, Dr. Arenas, recommended medical management, aspirin, statin, heparin drip, recommended medical management for now, based on clinical progress recommended future coronary intervention, but no acute coronary invention for now -There was concern for possible seizure, I did not witness this, patient was given Versed push, plus Versed for sedation, I examined patient, I cannot discern any seizure-like episodes, she is on Versed now for sedation, no seizure-like episodes, remains appropriate FiO2 - Discussed case with daughter, my meghan rns for her aspiration event, need for bronchoscopy, pulmonary evaluation, need for general/bariatric surgery, [facility] - Spoke with pulmonary, who advised that there is no urgent need for bronchoscopy, but were agreeable to transfer if general surgery would consult and see patient -In between spoke to family, patient's f kimani wants GG to be transferred to [facility] in [place], discussed risk benefits of transfer, they voiced understanding, all questions answered, agreed to proceed - Spoke to general surgery who will cons ult if bariatric surgery was unable to do so, - [facility] coordinator discussed case with bariatric surgery, who is agreeable to consult, patient has been excepted at [facility], has a bed - Patient reexamined, maps around 65, pu lse is in the 50s, will start her on a dopamine drip, - She is on propofol, fentanyl, Versed f or sedation - Discussed Vitals/I&O/Wt Last Vital Signs Temp 98.7 F 11/15/24 16:30 Pulse 53 L 11/15/24 16:30 Resp 14 11/15/24 15:54 BP 88/38 11/15/24 16:30 Pulse Ox 93 11/15/24 16:30 O2 Del Method Mechanical Ventilation 11/15/24 16:30 O2 Flow Rate 40 11/15/24 15:00 FiO2 40 11/15/24 16:30 11/15/24 11/15/24 11/15/24 06:59 14:59 22:59 Intake Total 43.717 / 43.717 531.950 / 531.950 271.056 / 803.006 Output Total 870 / 870 Balance 43.717 / 43.717 531.950 / 531.950 -598.944 / -66.994 Weight last 48 hrs Weight 123 kg Weight 113.398 kg Physical Exam 2 Const: COMMON NORMALS: no acute distress ORIENTATION/CONSCIOUSNESS: not awake, not oriented to person, not oriented to place and not oriented to time OTHER: Intubated, sedated, on mechanical ventilation Eye: OTHER: Pupils are minimally reactive to light, bilaterally Resp: COMMON NORMALS: normal respiratory effort, No retractions and No use of accessory muscles AUSCULTATION: crackles and wheezes Cardio: COMMON NORMALS: regular rate, regular rhythm, S1 normal heart sound present and S2 normal heart sound present RATE: regular rate RHYTHM: r egular rhythm HEART SOUNDS: S1 normal heart sound present and S2 normal heart sound present GI: COMMON NORMALS: Normal to inspection, nondistended, normoactive bowel sounds present and non-tender Extremity: COMMON NORMALS: no pedal edema Neuro: SENSORIUM/ORIENTATION: No oriented to person, No oriented to place and No oriented to time Urinary Catheter Management: Gusman: Cath Placed During This Visit: yes Reason for Continuing Indwelling Catheter: Accurate Measurement of Urinary Output in Critically Ill Patients Urinary Catheter Date of Insertion: 11/14/24 Urinary Catheter Time of Insertion: 22:00 Data 11/15/24 11:54 11/15/24 11:54 Micro: Microbiology 11/15/24 05:15 Bacterial Antigens - Final Urine,Voided 11/15/24 03:43 Gram Stain - Final Sputum - Endotracheal Tube Aspirate 11/15/24 05:15 Legionella Urinary Antigen - Final Urine Catheterized 11/14/24 21:49 Blood Culture - Preliminary Blood SPECIMEN COLLECTED 11/14/24 21:44 Blood Culture - Preliminary Blood SPECIMEN COLLECTED A&P Assessment and plan 1. LAP-BAND surgery status: 2. Acute hypoxic respiratory failure: 3. Aspiration pneumonia: 4. Aspiration pneumonitis: 5. Cardiac arrest: 6. Hyperlipidemia: 7. Hypertriglyceridemia: 8. Type 2 diabetes mellitus, without long-term current use of insulin: 9. Septic shock: Plan: Acute hypoxic respiratory failure - Secondary to aspiration pneumonia, aspiration pneumonitis, aspiration event - Possible pulmonary edema, component of acute flash pulm edema -Respiratory arrest versus bradycardic arrest - Plan - Intubated - Sedated - Propofol, for sedation - Fentanyl for sedation - Versed for sedation - Minimize PEEP, minimize FiO2 - Spontaneous breathing trial - Vancomycin - Zosyn - Has received a dose of Lasix, will hold off of further doses Lap-Band dysfunction/migration - CT scan showing Lap-Band associated with distal esophageal distention, abnormal location and appearance of gastric band concerning for slippage - History is highly concerning for Lap-Band migration/dysfunction - With significant aspiration event, respiratory arrest - General Surgery perform EGD, no acute obstruction seen, recommended evaluation by tertiary level center, bariatric surgery Respiratory arrest versus bradycardic arrest - CPR, atropine, 2 epi, 2 CPR Concern for anoxic brain injury - Patient had episode of seizure witnessed by nursing staff, I did not witness any seizure-like episodes - Currently on Versed for sedation - Will need spot is being drawn - Has a cough/gag reflex - Pupils minimally reactive to light NSTEMI - Aspirin, statin - Heparin drip - Serial EKGs, serial troponins, telemetry monitoring - Will eventually need cardiac intervention once stable from above CONCLUSIONS Normal LV size with borderline ejection fraction of 50 to 55%. Dyskinetic mid and apical septum and anteroseptal segments-most likely suggesting ischemia/infarction in this area. Mildly increased right atrial size. Severely increased left atrial size. Mild mitral annular calcification. Thickened aortic valve. Mild tricuspid valve regurgitation. Estimated pulmonary artery peak systolic pressure 51 mmHg There is no pericardial effusion. There are no intracardiac masses. Compared to the study from 07/27/2024, the wall motion abnormality appears to be new with a slight drop in the ejection fraction Acute kidney injury, monitor creatinine Type 2 diabetes mellitus: Low-dose insulin sliding scale Full code Heparin drip for DVT prophylaxis PDMP PDMP Reviewed: Not Reviewed Attestations 2 Medical Necessity Statement*: Patient requires hospitalization, for acute hypoxic respiratory failure, aspiration ammonia, aspiration pneumonitis, septic shock, bradycardia, lap band dysfunction, NSTEMI Coding Level of Care Code Critical Care >/= 30 minutes Critical care time (in minutes): 75 The high probability of a clinically significant, sudden or life threatening deterioration, as referenced in this documentation, required my full and direct attention, intervention and personal management. The critical care time shown is in addition to time spent performing any reported separately billable procedures and includes the following: [x] Data and vital sign review and interpretation [x ] Patient assessment, examination and intervention [x] Medication orders and management [x] Patient/Family updates as able [x] Care Coordination and Documentation. Diagnoses LAP-BAND surgery status Z98.84 Acute hypoxic respiratory failure J96.01 Aspiration pneumonia J69.0 Aspiration pneumonitis J69.0 Cardiac arrest I46.9 Hyperlipidemia E78.5 Hypertriglyceridemia E78.1 Type 2 diabetes mellitus, without long-term current use of insulin E11.9 Septic shock A41.9; R65.21 Sepsis Event Note Focused Exam Vital Signs Temp Pulse Resp BP Pulse Ox O2 Del Method O2 Flow Rate 11/15/24 16:30 98.7 F 53 L 88/38 93 Mechanical Ventilation 11/15/24 16:00 52 L 96/48 Mechanical Ventilation 11/15/24 15:54 14 93 11/15/24 15:30 55 L 85/37 87 L Mechanical Ventilation 11/15/24 15:04 55 L 14 93 Mechanical Ventilation 11/15/24 15:00 52 L 14 104/61 Mechanical Ventilation 11/15/24 14:30 55 L 14 104/42 93 Mechanical Ventilation 11/15/24 14:00 55 L 11/15/24 14:00 11/15/24 13:30 51 L 14 112/75 Mechanical Ventilation 40 11/15/24 13:00 56 L 14 128/51 95 Mechanical Ventilation 11/15/24 12:35 54 L 15 94 Mechanical Ventilation 11/15/24 12:30 55 L 18 154/79 95 Mechanical Ventilation 11/15/24 12:22 15 96 11/15/24 12:00 57 L 18 123/51 93 Mechanical Ventilation 11/15/24 11:30 55 L 18 118/55 93 Mechanical Ventilation 11/15/24 11:00 53 L 18 103/46 94 Mechanical Ventilation 11/15/24 10:30 53 L 18 110/51 96 Mechanical Ventilation 11/15/24 10:00 57 L 18 107/58 94 Mechanical Ventilation 11/15/24 09:44 16 94 11/15/24 09:30 68 152/88 97 Mechanical Ventilation 11/15/24 09:00 58 L 18 158/57 93 Mechanical Ventilation 11/15/24 08:30 54 L 18 175/92 95 Mechanical Ventilation 11/15/24 08:00 54 L 15 11/15/24 08:00 11/15/24 08:00 54 L 18 165/96 94 Mechanical Ventilation 11/15/24 08:00 21 H 98 11/15/24 07:59 57 L 22 H 95 Mechanical Ventilation 11/15/24 07:30 98.5 F 53 L 18 172/86 93 Mechanical Ventilation 11/15/24 07:00 60 18 180/79 93 Mechanical Ventilation 11/15/24 06:00 52 L FiO2 11/15/24 16:30 40 11/15/24 16:00 40 11/15/24 15:54 40 11/15/24 15:30 40 11/15/24 15:04 40 11/15/24 15:00 11/15/24 14:30 11/15/24 14:00 11/15/24 14:00 40 11/15/24 13:30 11/15/24 13:00 11/15/24 12:35 40 11/15/24 12:30 40 11/15/24 12:22 40 11/15/24 12:00 11/15/24 11:30 40 11/15/24 11:00 40 11/15/24 10:30 40 11/15/24 10:00 40 11/15/24 09:44 40 11/15/24 09:30 40 11/15/24 09:00 40 11/15/24 08:30 40 11/15/24 08:00 11/15/24 08:00 40 11/15/24 08:00 40 11/15/24 08:00 40 11/15/24 07:59 40 11/15/24 07:30 11/15/24 07:00 40 11/15/24 06:00 Respiratory exam: Present wheezes Cardiovascular exam: Present bradycardia Capillary refill: > 3 Seconds Peripheral pulse strength: 2+ Slightly Diminished Peripheral pulse location: Radial Skin exam: normal turgor Date exam was performed: 11/15/24 Time exam was performed: 17:43 Problem List 1. LAP-BAND surgery status: Status: Acute 2. Acute hypoxic respiratory failure: Status: Acute 3. Aspiration pneumonia: Status: Acute 4. Aspiration pneumonitis: Status: Acute 5. Cardiac arrest: Status: Acute 6. Hyperlipidemia: Status: Chronic 7. Hypertriglyceridemia: Status: Acute 8. Type 2 diabetes mellitus, without long-term current use of insulin: Status: Chronic 9. Septic shock: Status: Acute
--- NOTE | 2024-11-15 17:48 | PHA.VACGOAL ---
Vancomycin Goal - Goal Vancomycin Goal:: 15-20 mg/L - Therapy Current therapy:: Azithromycin, Pip/Tazo Day of therpy:: Day []of [] . Actual body weight (kg): 271 lb 2.697 oz - Data Labs: WBC 13.04 10^3/uL (3.29-11.43) H 11/15/24 11:54 RBC 3.82 10^6/uL (3.85-5.65) L 11/15/24 11:54 Hgb 10.10 g/dL (11.27-16.99) L 11/15/24 11:54 Hct 31.7 % (36-47) L 11/15/24 11:54 MCV 83.0 fl (85-98) L 11/15/24 11:54 MCH 26.4 pg (27-33) L 11/15/24 11:54 MCHC 31.9 g/dL (30-55) 11/15/24 11:54 RDW 15.3 % (12.1-15.1) H 11/15/24 11:54 Sodium 131 mmol/L (136-145) L 11/15/24 11:54 Potassium 4.0 mmol/L (3.5-5.1) 11/15/24 11:54 Chloride 93 mmol/L (98-107) L 11/15/24 11:54 Carbon Dioxide 24 mmol/L (22-29) 11/15/24 11:54 Anion Gap 18.0 (5-19) 11/15/24 11:54 BUN 21 mg/dL (8-23) 11/15/24 11:54 Creatinine 1.0 mg/dL (0.5-0.9) H 11/15/24 11:54 GFR Calculation Not Reportable 11/15/24 11:54 Drug administration history:: Medications Piperacillin Sod/Tazobactam (Sod 3.375 gm/ Sodium Chloride) 50 mls @ 12.5 mls/hr IV Q8H BRIELLE Last Admin: 11/15/24 15:00 Dose: Infused Azithromycin (Azithromycin 250 Mg Tablet) 500 mg NG-TUBE BEDTIME BRIELLE; Protocol Last Admin: 11/15/24 02:02 Dose: Not Given Treatment plan:: new consult Regimen:: STARTING 2000 MG LOADING DOSE. DUE TO PATIENT'S ADVANCED AGE, DECREASED RENAL FUNCTION, AND UNSTABLE STATUS, STARTING MAINTENANCE DOSE OF 1250 MG Q12H. Follow up:: WILL PLAN TO DRAW RANDOM LEVEL PRIOR TO REACHING STEADY STATE TO ENSURE PATIENT IS NOT SUPRATHERAPEUTIC ON 11/17/24 AT 0500. WILL DRAW TROUGH PRIOR TO 5TH DOSE. WILL CONTINUE TO MONITOR DAILY. Rationale:: TREATING PATIENT FOR PNEUMONIA. PATIENT HAS POTENTIALLY UNSTABLE FLUID STATUS, DECREASED RENAL FUNCTION, AND ADVANCED AGE.
--- NOTE | 2024-11-15 17:51 | P.TS_ITS ---
Transfer Summary Providers Date of Admission: 11/15/24 00:22 Date of Discharge/Transfer: 11/26/24 Attending Provider at Admission: Soco Pabon MD Attending Provider at Transfer: Umberto Jones MD Primary Care Provider: Argenis Costa DO Transfer Plans: Anticipated date of transfer: 11/26/24 . Diagnoses at Discharge Discharge Diagnosis 1. LAP-BAND surgery status: 2. Acute hypoxic respiratory failure: 3. Aspiration pneumonia: 4. Aspiration pneumonitis: 5. Cardiac arrest: 6. Mixed hyperlipidemia: 7. Hypertriglyceridemia: 8. Type 2 diabetes mellitus with other circulatory complication, without long- term current use of insulin: 9. Septic shock: Reason for Visit Reason for Visit POST CODE Hospital Course Hospital Course This is a 74-year-old female with a past medical history of COPD, CHF, PAD, type 2 diabetes mellitus, obstructive sleep apnea, who presents [facility] for reportedly having feelings of bread stick stuck in her chest, dysphagia, tightness of chest, acute hypoxia on EMS arrival to her home, cardiac arrest, bradycardia prior to arrest, with ROSC, brought into the ER by EMS intubated, Patient was admitted to [facility] for acute hypoxic respiratory failure secondary to aspiration ammonia, aspiration pneumonitis, aspiration event, with a component of pulmonary edema, concerns on CT imaging for Lap-Band dysfunction/migration, with respiratory arrest versus bradycardic arrest, NSTEMI, EDDY, concerns for anoxic brain injury Acute hypoxic respiratory failure - Secondary to aspiration pneumonia, aspiration pneumonitis, aspiration event - Possible pulmonary edema, component of acute flash pulm edema -Respiratory arrest versus bradycardic arrest - Plan - Intubated - Sedated - Propofol, for sedation - Fentanyl for sedation - Versed for sedation - Minimize PEEP, minimize FiO2 - Spontaneous breathing trial - Vancomycin - Zosyn - Has received a dose of Lasix, will hold off of further doses Lap-Band dysfunction/migration - CT scan showing Lap-Band associated with distal esophageal distention, abnormal location and appearance of gastric band concerning for slippage - History is highly concerning for Lap-Band migration/dysfunction - With significant aspiration event, respiratory arrest - General Surgery perform EGD, no acute obstruction seen, recommended evaluation by tertiary level center, bariatric surgery Respiratory arrest versus bradycardic arrest - CPR, atropine, 2 epi, 2 CPR Concern for anoxic brain injury - Patient had episode of seizure witnessed by nursing staff, I did not witness any seizure-like episodes - Currently on Versed for sedation - Will need spot is being drawn - Has a cough/gag reflex - Pupils minimally reactive to light NSTEMI - Aspirin, statin - Heparin drip - Serial EKGs, serial troponins, telemetry monitoring - Will eventually need cardiac intervention once stable from above CONCLUSIONS Normal LV size with borderline ejection fraction of 50 to 55%. Dyskinetic mid and apical septum and anteroseptal segments-most likely suggesting ischemia/infarction in this area. Mildly increased right atrial size. Severely increased left atrial size. Mild mitral annular calcification. Thickened aortic valve. Mild tricuspid valve regurgitation. Estimated pulmonary artery peak systolic pressure 51 mmHg There is no pericardial effusion. There are no intracardiac masses. Compared to the study from 07/27/2024, the wall motion abnormality appears to be new with a slight drop in the ejection fraction Acute kidney injury, monitor creatinine Type 2 diabetes mellitus: Low-dose insulin sliding scale Events of 11/15/2024 -patient's daughters at bedside - Currently Marifer is intubated, sedated on mechanical ventilation, 40% FiO2, not requiring pressors, remains afebrile, urine output 870, does have intermittent episodes of sinus bradycardia - Patient's daughter at bedside tells me that Marifer for the last month has been dealing with abdominal distention, bloating, upper epigastric discomfort, at times associated with meals -[facility] [place] [facility] [place] for pneumonia has been treated for pneumonia, has been treated with multiple bouts of pneumonia -she is also has been treated for UTI in the past month - According to patient's daughter yesterday they were in [place], eating at a restaurant, when Marifer had eaten bread, she started experiencing upper abdominal cramping, discomfort, nausea, vomiting - She had episode of emesis - She felt a little bit better, so they got in their car, and her daughter drove her home - On the 2-hour drive back to [place] Marifer kept having episodes of nausea, vomiting, upper abdominal discomfort, but wanted to go home - Patient went into her home which is on the bottom floor, her nephew is on the tile floor - Within 5 minutes of getting home she called her daughter and said help, and hung up the phone - Daughter called nephew to check up on Marifer Caicedo on examination by son who was complaining of shortness of breath, nausea, vomiting, abdominal pain - EMS was called - According to ER provider and overnight physician, patient had a O2 sat in the 70s upon EMS arrival, on the way to [facility] - She had a respiratory arrest and/or bradycardic arrest - Received atropine, 2 rounds of epinephrine, 2 rounds of CPR, with ROSC, intubated on arrival to the emergency room - She is placed on fentanyl and Versed for sedation - Upon arrival imaging did not show pulmonary embolism - She was found to have an NSTEMI, placed on heparin drip - CT of the abdomen shows abnormal location appearance of gastric band concerning for slippage, general surgery was consulted there is plans on EGD today - She has been started on broad-spectrum antibiotic therapy, for aspiration event, aspiration pneumonia - Discussed with the daughter, patient's respiratory arrest versus bradycardic arrest, discussed following up cardiogram findings, discussing with cardiology, following up EGD results, discussing with general surgery, discussed concern for possible anoxic brain injury given her CPR, plans on weaning sedation based on clinical progress - Patient's daughter voiced understanding, all questions answered, Marifer remains a full code - Patient underwent EGD, no findings of obstruction, recommended consideration of transfer to tertiary level center, for consideration of deflating/taking out Lap-Band - Echocardiogram results reviewed, EF 50 to 55%, dyskinetic mid and apical septum and anterior septal segments, suggesting ischemia/infarction to this area, EKG no acute ST-T wave changes, troponin 100, discussed case with cardiology, Dr. Arenas, recommended medical management, aspirin, statin, heparin drip, recommended medical management for now, based on clinical progress recommended future coronary intervention, but no acute coronary invention for now -There was concern for possible seizure, I did not witness this, patient was given Versed push, plus Versed for sedation, I examined patient, I cannot discern any seizure-like episodes, she is on Versed now for sedation, no seizure-like episodes, remains appropriate FiO2 - Discussed case with daughter, my concerns for her aspiration event, need for bronchoscopy, pulmonary evaluation, need for general/bariatric surgery, [facility] - Spoke with pulmonary, who advised that there is no urgent need for bronchoscopy, but were agreeable to transfer if general surgery would consult and see patient -In between spoke to family, patient's family wants GG to be transferred to [facility] in [place], discussed risk benefits of transfer, they voiced understanding, all questions answered, agreed to proceed - Spoke to general surgery who will consult if bariatric surgery was unable to do so, - [facility] coordinator discussed case with bariatric surgery, who is agreeable to consult, patient has been excepted at [facility], has a bed - Patient reexamined, maps around 65, pulse is in the 50s, will start her on a dopamine drip, - She is on propofol, fentanyl, Versed for sedation - Transferred to [facility] joint care with Physical Exam Const: COMMON NORMALS: no acute distress OTHER: Intubated, sedated, mechanical ventilation Resp: COMMON NORMALS: normal respiratory effort, No retractions, No use of ac cessory muscles and clear to auscultation bilaterally AUSCULTATION: clear to auscultation bilaterally Cardio: COMMON NORMALS: regular rate, regular rhythm, S1 normal heart sound present and S2 normal heart sound present RATE: regular rate RHYTHM: regular rhythm HEART SOUNDS: S1 normal heart sound present and S2 normal heart sound present GI: COMMON NORMALS: Normal to inspection, nondistended, normoactive bowel sounds present and non-tender Extremity: COMMON NORMALS: no pedal edema Urinary Catheter Management: Gusman: Cath Placed During This Visit: yes Reason for Continuing Indwelling Catheter: Accurate Measurement of Urinary Output in Critically Ill Patients Urinary Catheter Date of Insertion: 11/14/24 Urinary Catheter Time of Insertion: 22:00 TS Data Studies Completed and Pending Pending at discharge Category Date Time Status Blood Culture Stat Lab 11/14/24 21:49 Results Complete Blood Count w/Auto AM LABS Lab 11/16/24 04:00 Ordered Comprehensive Metabolic Panel AM LABS Lab 11/16/24 04:00 Ordered Platelet Count Q2D Lab 11/17/24 04:00 Ordered Platelet Count Q2D Lab 11/19/24 04:00 Ordered Sputum Culture and Gram Stain Routine Lab 11/15/24 03:43 Results Completed Studies During Hospitalization Category Date Time Status CT abdomen pelvis wo con [id number] Stat Cat Scan 11/14/24 22:[address] angio chest PE protcl [id number] Stat Cat Scan 11/15/24 00:[address] head wo con* [id number] Stat Cat Scan 11/14/24 22:43 Completed CXRP [XR chest 1V portable [id number]] Routine Exams 11/15/24 13:14 Completed XR chest 1V [id number] Stat Exams 11/14/24 21:12 Completed CV. echo complete* [id number] Routine Ultrasound 11/15/24 00:33 Completed Laboratory Last Values WBC 13.04 10^3/uL (3.29-11.43) H 11/15/24 11:54 RBC 3.82 10^6/uL (3.85-5.65) L 11/15/24 11:54 Hgb 10.10 g/dL (11.27-16.99) L 11/15/24 11:54 Hct 31.7 % (36-47) L 11/15/24 11:54 MCV 83.0 fl (85-98) L 11/15/24 11:54 MCH 26.4 pg (27-33) L 11/15/24 11:54 MCHC 31.9 g/dL (30-55) 11/15/24 11:54 RDW 15.3 % (12.1-15.1) H 11/15/24 11:54 Plt Count 260 10^3/cmm (157-399) 11/15/24 11:54 MPV 9.4 fL (7.4-10.4) 11/15/24 11:54 Neut % (Auto) 89.5 % 11/15/24 11:54 Lymph % (Auto) 4.1 % 11/15/24 11:54 Dixie % (Auto) 5.5 % 11/15/24 11:54 Eos % (Auto) 0.0 % 11/15/24 11:54 Baso % (Auto) 0.1 % 11/15/24 11:54 Neut # (Auto) 11.67 10^3/uL (1.8-7.7) H 11/15/24 11:54 Lymph # (Auto) 0.5 10^3/uL (0.8-4.8) L 11/15/24 11:54 Dixie # (Auto) 0.7 10^3/uL (0.2-0.9) 11/15/24 11:54 Eos # (Auto) 0.0 10^3/uL (0.0-0.8) 11/15/24 11:54 Baso # (Auto) 0.0 10^3/uL (0.0-0.1) 11/15/24 11:54 Nucleated RBC % (auto) 0 % 11/15/24 11:54 Nucleated RBCs # 0.0 /100WBC 11/15/24 11:54 APTT 38.7 SECONDS (23.9-36.7) H D 11/15/24 16:41 Specimen Type Arterial 11/15/24 10:47 Sample Site Brachial, right 11/15/24 10:47 ABG pH 7.37 (7.35-7.45) 11/15/24 10:47 ABG pCO2 45.7 mmHg (35-45) H 11/15/24 10:47 ABG pO2 78.2 mmHg (80.0-100.0) L 11/15/24 10:47 ABG PO2/FiO2 Ratio 195 11/15/24 10:47 ABG HCO3 26.5 mmol/L (22-26) H 11/15/24 10:47 ABG O2 Saturation 94.4 11/15/24 10:47 ABG Base Excess 0.9 mmol/L (-2.0-2.0) 11/15/24 10:47 Mark Test Pos 11/15/24 10:47 A-a O2 Gradient 19.4 mmHg (5-10) H 11/15/24 10:47 Hematocrit 32.4 % (37-47) L 11/15/24 10:47 Hgb O2 Saturation 91.7 % (95-100) L 11/15/24 10:47 Carboxyhemoglobin 0.9 %THgb (0.4-20.1) 11/15/24 10:47 Methemoglobin 1.9 % (0.4-1.5) H 11/15/24 10:47 Total Hemoglobin 10.6 g/dL (12-16) L 11/15/24 10:47 Sodium 130.0 mmol/L (131-143) L 11/15/24 10:47 Potassium 3.7 mmol/L (3.5-5.0) 11/15/24 10:47 Glucose 113.0 mg/dL (70-115) 11/15/24 10:47 Ionized Calcium 1.1 mmol/L (1.1-1.4) 11/15/24 10:47 O2 Delivery Device Vent 11/15/24 10:47 FiO2 40.0 % 11/15/24 10:47 Tidal Volume 0.50 11/15/24 10:47 PEEP 8.0 cmH20 11/15/24 10:47 Roof Fixer ID Monro 11/15/24 10:47 Sodium 131 mmol/L (136-145) L 11/15/24 11:54 Potassium 4.0 mmol/L (3.5-5.1) 11/15/24 11:54 Chloride 93 mmol/L (98-107) L 11/15/24 11:54 Carbon Dioxide 24 mmol/L (22-29) 11/15/24 11:54 Anion Gap 18.0 (5-19) 11/15/24 11:54 BUN 21 mg/dL (8-23) 11/15/24 11:54 Creatinine 1.0 mg/dL (0.5-0.9) H 11/15/24 11:54 GFR Calculation Not Reportable 11/15/24 11:54 Glucose 112 mg/dL (65-115) 11/15/24 11:54 POC Glucose 117 mg/dL (70-110) H 11/15/24 11:47 Calculated Osmolality 276 mOsm/kg (285-295) L 11/15/24 11:54 Lactic Acid 1.7 mmol/L (0.5-2.2) 11/15/24 03:40 Calcium 8.1 mg/dL (8.5-10.5) L 11/15/24 11:54 Total Bilirubin 0.8 mg/dL (0.15-1.2) 11/15/24 11:54 AST 49 U/L (0-32) H 11/15/24 11:54 ALT 51 U/L (0-33) H 11/15/24 11:54 Alkaline Phosphatase 39 U/L (35-105) 11/15/24 11:54 Creatine Kinase 122 U/L (26-192) 11/14/24 21:44 Troponin T 5th Gen ng/L 100 ng/L (0-10) H 11/15/24 11:54 Troponin T Baseline 23 ng/L (0-10) H 11/14/24 21:44 Troponin T 120 Minute 50.02 ng/L (0-10) H 11/14/24 23:44 Delta Troponin T 27.02 ABS# (0-10) H* 11/14/24 23:44 Troponin T Hi Sens 6Hr 78.31 ng/L (0-10) H 11/15/24 03:40 Troponin T Hi Sens 6Hr Delta 55.31 ng/L (0-12) H* 11/15/24 03:40 C-Reactive Protein 12.7 mg/L (0.0-4.9) H 11/15/24 11:54 NT-Pro-B Natriuret Pep 3652 pg/mL (0-450) H 11/15/24 03:40 Total Protein 6.3 g/dL (6.6-8.7) L 11/15/24 11:54 Albumin 3.6 g/dL (3.5-5.2) 11/15/24 11:54 Globulin 2.7 g/dL (1.3-4.6) 11/15/24 11:54 Procalcitonin 0.74 ng/mL (0-0.5) H 11/15/24 11:54 TSH 3.14 uIU/mL (0.27-4.20) 11/15/24 03:40 Urine Color Yellow (Yellow) 11/14/24 22:07 Urine Appearance Clear (CLEAR) 11/14/24 22:07 Urine pH 5.5 (5-7) 11/14/24 22:07 Ur Specific [place] 1.018 (1.005-1.030) 11/14/24 22:07 Urine Protein 3+ (Negative) A 11/14/24 22:07 Urine Glucose (UA) 2+ (Normal) H 11/14/24 22:07 Urine Ketones Trace (Negative) 11/14/24 22:07 Urine Blood 1+ (Negative) A 11/14/24 22:07 Urine Nitrate Negative (Negative) 11/14/24 22:07 Urine Bilirubin Negative (Negative) 11/14/24 22:07 Urine Urobilinogen 1.0 mg/dL (Negative) 11/14/24 22:07 Ur Leukocyte Esterase Negative (Negative) 11/14/24 22:07 Urine RBC 0-2 /hpf (0-2) 11/14/24 22:07 Urine WBC 0-5 /hpf (0-5) 11/14/24 22:07 Ur Squamous Epith Cells 0-5 /hpf (0-5) 11/14/24 22:07 Amorphous Sediment Not Reportable 11/14/24 22:07 Urine Bacteria None seen /hpf (NONE) 11/14/24 22:07 Hyaline Casts 23.14 /lpf 11/14/24 22:07 Influenza A (PCR) Negative (Negative) 11/14/24 22:37 Influenza Type B (PCR) Negative (Negative) 11/14/24 22:37 RSV (PCR) Negative (Negative) 11/14/24 22:37 SARS-CoV-2 (PCR) Negative (Negative) 11/14/24 22:37 Radiology Impressions Abdomen/Pelvis CT 11/14/24 22:42 IMPRESSION: 1. Findings in the lower lung zones most concerning for abnormalities related to decompensated congestive heart failure pulmonary edema pleural effusions as above noted 2. Nasogastric tube terminating in the distal esophagus just above the GE junction which is slightly dilated. 3. Abnormal location or appearance for a gastric band concerning for slippage and further evaluation in this regard recommended. 4. Decompressed thickened colon colitis not excluded Head CT 11/14/24 22:43 IMPRESSION: No definite acute intracranial abnormality. Chest CTA 11/15/24 00:24 IMPRESSION: 1. There is no evidence of pulmonary embolism. 2. There are moderate-sized pleural effusions bilaterally, larger on the right. Dependent compressive atelectasis bilaterally is noted. 3. There is a lap band which is associated with distal esophageal distension. 4. Moderate coronary artery calcification is noted. 5. The distal tip of the endotracheal tube is above the level of the johann in good position. Chest X-Ray 11/15/24 13:14 Impression: Satisfactory insertion right PICC line. Recent Clincial Data Last Vital Signs Temp 98.7 F 11/15/24 16:30 Pulse 53 L 11/15/24 16:30 Resp 14 11/15/24 15:54 BP 88/38 11/15/24 16:30 Pulse Ox 93 11/15/24 16:30 O2 Del Method Mechanical Ventilation 11/15/24 16:30 O2 Flow Rate 40 11/15/24 15:00 FiO2 40 11/15/24 16:30 Vital Signs Temp Pulse Resp BP Pulse Ox O2 Del Method O2 Flow Rate 11/15/24 16:30 98.7 F 53 L 88/38 93 Mechanical Ventilation 11/15/24 16:00 52 L 96/48 Mechanical Ventilation 11/15/24 15:54 14 93 11/15/24 15:30 55 L 85/37 87 L Mechanical Ventilation 11/15/24 15:04 55 L 14 93 Mechanical Ventilation 11/15/24 15:00 52 L 14 104/61 Mechanical Ventilation 40 11/15/24 14:30 55 L 14 104/42 93 Mechanical Ventilation 40 11/15/24 14:00 55 L 11/15/24 14:00 11/15/24 13:30 51 L 14 112/75 Mechanical Ventilation 40 11/15/24 13:00 56 L 14 128/51 95 Mechanical Ventilation 40 11/15/24 12:35 54 L 15 94 Mechanical Ventilation 11/15/24 12:30 55 L 18 154/79 95 Mechanical Ventilation 11/15/24 12:22 15 96 11/15/24 12:00 57 L 18 123/51 93 Mechanical Ventilation 11/15/24 11:30 55 L 18 118/55 93 Mechanical Ventilation 11/15/24 11:00 53 L 18 103/46 94 Mechanical Ventilation 11/15/24 10:30 53 L 18 110/51 96 Mechanical Ventilation 11/15/24 10:00 57 L 18 107/58 94 Mechanical Ventilation 11/15/24 09:44 16 94 11/15/24 09:30 68 152/88 97 Mechanical Ventilation 11/15/24 09:00 58 L 18 158/57 93 Mechanical Ventilation 11/15/24 08:30 54 L 18 175/92 95 Mechanical Ventilation 11/15/24 08:00 54 L 15 11/15/24 08:00 11/15/24 08:00 54 L 18 165/96 94 Mechanical Ventilation 11/15/24 08:00 21 H 98 11/15/24 07:59 57 L 22 H 95 Mechanical Ventilation 11/15/24 07:30 98.5 F 53 L 18 172/86 93 Mechanical Ventilation 11/15/24 07:00 60 18 180/79 93 Mechanical Ventilation 11/15/24 06:00 52 L FiO2 11/15/24 16:30 40 11/15/24 16:00 40 11/15/24 15:54 40 11/15/24 15:30 40 11/15/24 15:04 40 11/15/24 15:00 11/15/24 14:30 11/15/24 14:00 11/15/24 14:00 40 11/15/24 13:30 11/15/24 13:00 11/15/24 12:35 40 11/15/24 12:30 40 11/15/24 12:22 40 11/15/24 12:00 11/15/24 11:30 40 11/15/24 11:00 40 11/15/24 10:30 40 11/15/24 10:00 40 11/15/24 09:44 40 11/15/24 09:30 40 11/15/24 09:00 40 11/15/24 08:30 40 11/15/24 08:00 11/15/24 08:00 40 11/15/24 08:00 40 11/15/24 08:00 40 11/15/24 07:59 40 11/15/24 07:30 11/15/24 07:00 40 11/15/24 06:00 Intake & Output/Weight 11/13/24 11/14/24 11/15/24 11/16/24 06:59 06:59 06:59 06:59 Intake Total 43.717 / 43.717 803.006 / 803.006 Output Total 870 / 870 Balance 43.717 / 43.717 -66.994 / -66.994 Weight 123 kg Vitals Last Vital Signs Temp 98.7 F 11/15/24 16:30 Pulse 53 L 11/15/24 16:30 Resp 14 11/15/24 15:54 BP 88/38 11/15/24 16:30 Pulse Ox 93 11/15/24 16:30 O2 Del Method Mechanical Ventilation 11/15/24 16:30 O2 Flow Rate 40 11/15/24 15:00 FiO2 40 11/15/24 16:30 TS Medications Medications Acetaminophen (Acetaminophen 325 Mg Tablet) 650 mg PO Q6H PRN PRN Reason: Mild/Mod Pain Or Temp >/= 101 Albuterol/Ipratropium (Ipratropium-Albuterol 3 Ml Neb) 3 ml INHALATION Q4H.RESPIRATORY BRIELLE Last Admin: 11/15/24 15:04 Dose: 3 ml Aspirin (Aspirin 81 Mg Ec Tablet) 81 mg PO DAILY@0700 [facility] Last Admin: 11/15/24 06:41 Dose: Not Given Atorvastatin Calcium (Atorvastatin 40 Mg Tablet) 0 mg PO .COMPLEX BRIELLE Azithromycin (Azithromycin 250 Mg Tablet) 500 mg NG-TUBE BEDTIME BRIELLE; Protocol Last Admin: 11/15/24 02:02 Dose: Not Given Budesonide (Budesonide 0.5 Mg/2 Ml Neb) 0.5 mg INHALATION BID.RESPIRATORY BRIELLE Last Admin: 11/15/24 07:59 Dose: 0.5 mg Glucagon (Glucagon 1 Mg/Ml Kit 1 Ml) 1 mg IM ONCE PRN; Protocol PRN Reason: Adult Acute Hypoglycemia Nursing Prot. Heparin Sodium (Porcine) (Heparin 5,000 Unit/Ml Inj 1 Ml) 0 unit IVP PRN PRN; Protocol PRN Reason: Heparin Weight Based Protocol -Subsequent Bolus Hydralazine HCl (Hydralazine 20 Mg/Ml Inj 1 Ml) 10 mg IVP Q4H PRN PRN Reason: SBP > 160 Fentanyl (Sublimaze) 1,000 mcg in 100 mls @ 0 mls/hr IV .Q0M BRIELLE; Protocol Last Titration: 11/15/24 16:31 Dose: 80 mcg/hr, 8 mls/hr Dextrose (D5w) 500 mls @ 0 mls/hr IV ONCE PRN; Protocol PRN Reason: Adult Acute Hypoglycemia Prot Dextrose (D10w) 125 mls @ 750 mls/hr IV PRN PRN; Protocol PRN Reason: Adult Acute Hypoglycemia Nursing Protocol Dextrose (D10w) 250 mls @ 1,000 mls/hr IV PRN PRN; Protocol PRN Reason: Adult Acute Hypoglycemia Nursing Protocol Piperacillin Sod/Tazobactam (Sod 3.375 gm/ Sodium Chloride) 50 mls @ 12.5 mls/hr IV Q8H [facility] Last Infusion: 11/15/24 15:00 Dose: Infused Heparin Sodium/Sodium Chloride (Heparin Drip) 25,000 unit in 500 mls @ 0 mls/hr IV CONT BRIELLE; Protocol Last Titration: 11/15/24 13:20 Dose: 10.96 unit/kg/hr, 27 mls/hr Propofol (Diprivan) 1,000 mg in 100 mls @ 0 mls/hr IV .Q0M BRIELLE; Protocol Last Titration: 11/15/24 17:25 Dose: 20 mcg/kg/min, 14.76 mls/hr Dexmedetomidine/Sodium Chloride (Precedex) 400 mcg in 100 mls @ 0 mls/hr IV .Q0M BRIELLE; Protocol Last Titration: 11/15/24 17:19 Dose: 0 mcg/kg/hr, 0 mls/hr Midazolam HCl (Versed) 100 mg in 100 mls @ 0 mls/hr IV .Q0M BRIELLE; Protocol Last Titration: 11/15/24 17:25 Dose: 2 mg/hr, 2 mls/hr Dopamine HCl/Dextrose (Intropin Drip) 400 mg in 250 mls @ 23.063 mls/hr IV CONT BRIELLE; Protocol Vancomycin HCl / Sodium (Chloride) 250 mls @ 0 mls/hr [id number] PROTOCOL BRIELLE; Protocol Vancomycin HCl (Vancocin) 2,000 mg in 400 mls @ 200 mls/hr IV ONCE ONE Stop: 11/15/24 19:59 Vancomycin HCl (Vancocin) 1,250 mg in 250 mls @ 166.667 mls/hr IV Q12H BRIELLE Insulin Human Lispro (Insulin Lispro 100 Unit/1 Ml) 0 unit SUBCUT WM&BEDTIME BRIELLE; Protocol Last Admin: 11/15/24 11:48 Dose: Not Given Pantoprazole Sodium (Pantoprazole 40 Mg Sdv) 40 mg IVP DAILY [facility] Last Admin: 11/15/24 10:08 Dose: 40 mg Discontinued Medications Albuterol/Ipratropium (Ipratropium-Albuterol 3 Ml Neb) 3 ml INHALATION Q6H [facility] Last Admin: 11/15/24 01:18 Dose: 3 ml Albuterol/Ipratropium (Ipratropium-Albuterol 3 Ml Neb) 3 ml INHALATION Q6H.RESP BRIELLE Last Admin: 11/15/24 07:59 Dose: 3 ml Aspirin (Aspirin 325 Mg Tablet) 325 mg NG-TUBE ONCE ONE Stop: 11/15/24 00:34 Last Admin: 11/15/24 02:02 Dose: Not Given Budesonide (Budesonide 0.5 Mg/2 Ml Neb) 0.5 mg INHALATION BID BRIELLE Carvedilol (Carvedilol 12.5 Mg Tablet) 12.5 mg PO BID BRIELLE Furosemide (Furosemide 10 Mg/Ml Sdv 4ml) 40 mg IVP Q12H [facility] Last Admin: 11/15/24 13:29 Dose: 40 mg Heparin Sodium (Porcine) (Heparin 5,000 Unit/Ml Inj 1 Ml) 0 unit IVP ONCE ONE; Protocol Stop: 11/15/24 02:21 Last Admin: 11/15/24 03:15 Dose: 6,300 unit Hydralazine HCl (Hydralazine 20 Mg/Ml Inj 1 Ml) 10 mg IVP ONCE ONE Stop: 11/15/24 00:14 Last Admin: 11/15/24 00:24 Dose: 10 mg Midazolam HCl (Versed) 100 mg in 100 mls @ 0 mls/hr IV .Q0M [facility]; Protocol Last Titration: 11/15/24 11:23 Dose: Infused Sodium Chloride (Sodium Chloride 0.9%) 1,000 mls @ 999 mls/hr IV .Q1H1M ONE Stop: 11/14/24 23:00 Last Admin: 11/14/24 22:00 Dose: 999 mls/hr Midazolam HCl (Midazolam 1 Mg/Ml Inj 2 Ml) Confirm Administered Dose 2 mg .ROUTE .STK-MED ONE Stop: 11/15/24 14:48 Last Admin: 11/15/24 14:49 Dose: 2 mg Pantoprazole Sodium (Pantoprazole Dr 40 Mg Tablet) 40 mg PO DAILY [facility] Last Admin: 11/15/24 11:41 Dose: Not Given Allergies codeine Allergy (Verified 11/07/24 11:03) ADR-Confusion bacitracin (From Triple Antibiotic) Adverse Reaction (Mild, Verified 11/07/24 11:03) unknown neomycin (From Triple Antibiotic) Adverse Reaction (Mild, Verified 11/07/24 11:03) unknown polymyxin B (From Triple Antibiotic) Adverse Reaction (Mild, Verified 11/07/24 11:03) unknown Home Medications aspirin 81 mg tablet,delayed release 81 mg PO DAILY@0700 03/30/20 [History Confirmed 11/15/24] HAND CONTROLS FOR VEHICLE #1 ea 07/25/20 [Rx Confirmed 11/15/24] blood sugar diagnostic #100 ea 10/28/20 [Rx Confirmed 11/15/24] CPAP mask and tubing #1 ea 11/20/21 [Rx Confirmed 11/15/24] Replacement armrests for wheelchair #1 ea 11/20/21 [Rx Confirmed 11/15/24] RSV Vaccine #1 ea 01/14/23 [Rx Confirmed 11/15/24] syringes with needles for SQ injection #100 ea 01/20/23 [Rx Confirmed 11/15/24] Diabetic shoes #1 ea 10/07/23 [Rx Confirmed 11/15/24] mecobalamin (vitamin B12) 5,000 mcg disintegrating tablet 5,000 mcg PO DAILY 10/22/23 [History Confirmed 11/15/24] clonidine HCl 0.1 mg tablet See Rx Instructions .Route .COMPLEX #90 tabs 12/03/23 [Rx Confirmed 11/15/24] standup rollator #1 ea 02/03/24 [Rx Confirmed 11/15/24] AUTO TITRATING CPAP 8-13CM with supplies #1 ea 02/16/24 [Rx Confirmed 11/15/24] Nebulizer and supplies #1 ea 02/16/24 [Rx Confirmed 11/15/24] blood sugar diagnostic (Blood Glucose Test strips) #200 ea 02/17/24 [Rx Confirmed 11/15/24] blood-glucose meter #1 ea 02/17/24 [Rx Confirmed 11/15/24] lancets #200 ea 02/17/24 [Rx Confirmed 11/15/24] Below the knee amputation Supplies #1 ea 05/26/24 [Rx Confirmed 11/15/24] silver sulfadiazine 1 % topical cream (Silvadene) 1 applic topical BID #50 grams 06/08/24 [Rx Confirmed 11/15/24] triamcinolone acetonide 0.1 % topical cream 1 applic topical BID #453.6 grams 06/08/24 [Rx Confirmed 11/15/24] albuterol sulfate 2.5 mg/3 mL (0.083 %) solution for nebulization 2.5 mg (3 mL) inhalation Q4H PRN shortness of breath or wheezing #75 mL 06/12/24 [Rx Confirmed 11/15/24] hydrochlorothiazide 50 mg tablet 50 mg PO BID #180 tabs 06/12/24 [Rx Confirmed 11/15/24] icosapent ethyl 1 gram capsule (Vascepa) 2 g (2 x 1 gram) PO BID #360 caps 07/10/24 [Rx Confirmed 11/15/24] meloxicam 15 mg tablet 15 mg PO DAILY #90 tabs 07/10/24 [Rx Confirmed 11/15/24] albuterol sulfate 90 mcg/actuation aerosol inhaler See Rx Instructions .Route .COMPLEX #6.7 grams 07/21/24 [Rx Confirmed 11/15/24] fluticasone fur. 100 mcg-umeclid 62.5 mcg-vilant 25 mcg inhalat.powder (Trelegy Ellipta) 1 inh inhalation DAILY #60 ea 07/21/24 [Rx Confirmed 11/15/24] nifedipine 60 mg tablet,extended release 24 hr 60 mg PO DAILY #90 tabs 07/21/24 [Rx Confirmed 11/15/24] potassium chloride 10 mEq tablet,extended release(part/cryst) 20 meq (2 x 10 mEq) PO DAILY 90 days #180 tabs 07/21/24 [Rx Confirmed 11/15/24] solifenacin 10 mg tablet (Vesicare) 10 mg PO DAILY #90 tabs 08/18/24 [Rx Confirmed 11/15/24] fluticasone propionate 50 mcg/actuation nasal spray,suspension See Rx Instructions .Route .COMPLEX #16 grams 09/18/24 [Rx Confirmed 11/15/24] nitroglycerin 0.4 mg sublingual tablet 0.4 mg sublingual Q5M PRN CHEST PAINS #30 tabs 09/19/24 [Rx Confirmed 11/15/24] gabapentin 600 mg tablet 600 mg PO TID 30 days #90 tabs 09/25/24 [Rx Confirmed 11/15/24] ciprofloxacin HCl 500 mg tablet 500 mg PO BID 7 days #14 tabs 11/07/24 [Rx Confirmed 11/15/24] atorvastatin 40 mg tablet See Rx Instructions .Route .COMPLEX #90 tabs 11/14/24 [Rx Confirmed 11/15/24] carvedilol 12.5 mg tablet 12.5 mg PO BID #180 tabs 11/14/24 [Rx Confirmed 11/15/24] ferrous sulfate 325 mg (65 mg iron) tablet (FeroSul) 325 mg PO DAILY #90 tabs 11/14/24 [Rx Confirmed 11/15/24] furosemide 40 mg tablet 40 mg PO DAILY@0700 90 days #90 tabs 11/14/24 [Rx Confirmed 11/15/24] losartan 100 mg tablet 100 mg PO DAILY 90 days #90 tabs 11/14/24 [Rx Confirmed 11/15/24] omeprazole 40 mg capsule,delayed release 40 mg PO BID 90 days #180 caps 11/14/24 [Rx Confirmed 11/15/24] fenofibrate nanocrystallized 145 mg tablet 145 mg PO DAILY 11/15/24 [History Confirmed 11/15/24] metformin 500 mg tablet 500 mg PO BID 11/15/24 [History Confirmed 11/15/24] semaglutide 0.25 mg or 0.5 mg (2 mg/3 mL) subcutaneous pen injector (Ozempic) 0.5 mg SUBCUT Q7D 11/15/24 [History Confirmed 11/15/24] sertraline 100 mg tablet 100 mg PO .@7AM 11/15/24 [History Confirmed 11/15/24] Discharge Plan Discharge Patient Disposition: Xfer Short-Term Hosp Condition: Stable Prescriptions: No Action (DME) Replacement armrests for wheelchair See Rx Instructions .Route .MEDSUPPLY Qty: 1 0RF Rx Instructions: As directed (DME) CPAP mask and tubing See Rx Instructions .Route .MEDSUPPLY Qty: 1 0RF Rx Instructions: As directed mecobalamin (vitamin B12) 5,000 mcg tablet,disintegrating 5,000 mcg PO DAILY (DME) blood-glucose meter Misc See Rx Instructions .MEDSUPPLY Qty: 1 0RF Rx Instructions: Use as directed for checking blood sugar twice daily (DME) Blood Glucose Test Strip See Rx Instructions .MEDSUPPLY Qty: 200 12RF Rx Instructions: check blood sugar twice daily (DME) lancets Misc See Rx Instructions .MEDSUPPLY Qty: 200 12RF Rx Instructions: check glucose twice daily (DME) Below the knee amputation Supplies See Rx Instructions .Route .MEDSUPPLY Qty: 1 0RF Rx Instructions: As directed albuterol sulfate 2.5 mg /3 mL (0.083 %) solution for nebulization 2.5 mg inhalation Q4H PRN (Reason: shortness of breath or wheezing) Qty: 75 0RF meloxicam 15 mg tablet 15 mg PO DAILY Qty: 90 1RF gabapentin 600 mg tablet 600 mg PO TID 30 Days Qty: 90 3RF ciprofloxacin HCl 500 mg tablet 500 mg PO BID 7 Days Qty: 14 0RF (DME) HAND CONTROLS FOR VEHICLE See Rx Instructions .Route .MEDSUPPLY Qty: 1 0RF Rx Instructions: As directed ([facility] [place]) OneTouch Ultra Blue Test Strip Strip See Rx Instructions .ROUTE .MEDSUPPLY Qty: 100 3RF Rx Instructions: ONCE DAILY 90DAY SUPPLY ([facility] [place]) RSV Vaccine See Rx Instructions .Route .MEDSUPPLY Qty: 1 0RF Rx Instructions: As directed ([facility] [place]) syringes with needles for SQ injection See Rx Instructions .Route .MEDSUPPLY Qty: 100 0RF Rx Instructions: use daily with Cyanocobalamin injection ([facility] [place]) Diabetic shoes See Rx Instructions .Route .MEDSUPPLY Qty: 1 0RF Rx Instructions: As directed clonidine HCl 0.1 mg tablet See Rx Instructions .ROUTE .COMPLEX Qty: 90 0RF Dose Instruction: TAKE ONE TABLET BY MOUTH THREE TIMES DAILY NEEDED FOR HYPERTENSIVE EMERGENCY FOR BLOOD PRESSURE GREATER THAN 160/90 MM/HG Rx Instructions: TAKE ONE TABLET BY MOUTH THREE TIMES DAILY NEEDED FOR HYPERTENSIVE EMERGENCY FOR BLOOD PRESSURE GREATER THAN 160/90 MM/HG ([facility] [place]) standup rollator See Rx Instructions .Route .MEDSUPPLY Qty: 1 0RF Rx Instructions: 99 months ([facility] [place]) AUTO TITRATING CPAP 8-13CM with supplies See Rx Instructions .Route .MEDSUPPLY Qty: 1 0RF Rx Instructions: As directed ([facility] [place]) Nebulizer and supplies See Rx Instructions .Route .MEDSUPPLY Qty: 1 0RF Rx Instructions: As directed silver sulfadiazine [Silvadene] 1 % cream 1 applic topical BID Qty: 50 0RF Rx Instructions: apply a 1.5 mm thickness triamcinolone acetonide 0.1 % cream 1 applic TOPICAL BID Qty: 453.6 0RF hydrochlorothiazide 50 mg tablet 50 mg PO BID Qty: 180 1RF icosapent ethyl [Vascepa] 1 gram capsule 2 g PO BID Qty: 360 1RF albuterol sulfate 90 mcg/actuation HFA aerosol inhaler See Rx Instructions .ROUTE .COMPLEX Qty: 6.7 3RF Dose Instruction: INHALE ONE PUFF INTO LUNGS FOUR TIMES DAILY NEEDED SHORTNESS OF BREATH OR WHEEZING Rx Instructions: INHALE ONE PUFF INTO LUNGS FOUR TIMES DAILY NEEDED SHORTNESS OF BREATH OR WHEEZING. potassium chloride 10 mEq tablet,ER particles/crystals 20 meq PO DAILY 90 Days Qty: 180 1RF nifedipine 60 mg tablet extended release 24hr 60 mg PO DAILY Qty: 90 3RF Trelegy Ellipta 100-62.5-25 mcg blister with device 1 inh inhalation DAILY Qty: 60 5RF solifenacin [Vesicare] 10 mg tablet 10 mg PO DAILY Qty: 90 1RF fluticasone propionate 50 mcg/actuation spray,suspension See Rx Instructions .ROUTE .COMPLEX Qty: 16 3RF Dose Instruction: USE 2 SPRAYS IN EACH NOSTRIL DAILY Rx Instructions: USE 2 SPRAYS IN EACH NOSTRIL DAILY nitroglycerin 0.4 mg tablet, sublingual 0.4 mg sublingual Q5M PRN (Reason: CHEST PAINS) Qty: 30 0RF losartan 100 mg tablet 100 mg PO DAILY 90 Days Qty: 90 1RF carvedilol 12.5 mg tablet 12.5 mg PO BID Qty: 180 1RF ferrous sulfate [FeroSul] 325 mg (65 mg iron) tablet 325 mg PO DAILY Qty: 90 1RF atorvastatin 40 mg tablet See Rx Instructions .ROUTE .COMPLEX Qty: 90 1RF Dose Instruction: TAKE ONE TABLET BY MOUTH DAILY AT 7:00AM Rx Instructions: TAKE ONE TABLET BY MOUTH DAILY AT 7:00AM furosemide 40 mg tablet 40 mg PO DAILY@0700 90 Days Qty: 90 1RF omeprazole 40 mg capsule,delayed release(DR/EC) 40 mg PO BID 90 Days Qty: 180 1RF aspirin [Aspir-81] 81 mg Tablet,Delayed Release (Dr/Ec) 81 mg PO DAILY@0700 metformin 500 mg tablet 500 mg PO BID sertraline 100 mg tablet 100 mg PO .@7AM fenofibrate nanocrystallized 145 mg tablet 145 mg PO DAILY Ozempic 0.25 mg or 0.5 mg (2 mg/3 mL) pen injector 0.5 mg SUBCUT Q7D Rx Instructions: WEDNESDAY Referrals: Argenis Costa DO [Primary Care Provider, Family Practice] Patient Instructions: GI Post Discharge Instructions w/ Anesthesia, Opioid Safety, Patient Portal & Alpa Instructions Transfer Attestations Time Spent in Transfer Care: critical care time Critical Care Time (min): 60 Status at Transfer: Cognitive status at transfer: cognitively intact ; Behavioral status at transfer: cooperative ; Quality Metrics Clinical Quality Measures [ No reported AMI, CVA or VTE this stay] Coding Level of Care Code Acute Code for Chg Fwd Diagnoses LAP-BAND surgery status Z98.84 Acute hypoxic respiratory failure J96.01 Aspiration pneumonia J69.0 Aspiration pneumonitis J69.0 Cardiac arrest I46.9 Mixed hyperlipidemia E78.2 Hyperlipidemia type: mixed hyperlipidemia Hypertriglyceridemia E78.1 Type 2 diabetes mellitus with other circulatory complication, 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
[2024-11-15] MEDS: DOPamine drip 400 MG/250 ML PREMIX 23.06 MG IV (17:57)
[2024-11-15] MEDS: levETIRAcetam 1,000 MG/100 ML PREMIX 400 MG IV (18:34)
--- NOTE | 2024-11-15 19:09 | PC.NURSE ---
[facility] crew here, pt being prepped for transport.
--- NOTE | 2024-11-15 19:19 | PC.NURSE ---
Belongings: In the possession of her daughter Lisa Colón.
--- NOTE | 2024-11-15 19:45 | PC.NURSE ---
Addendum entered by Cheri Crowder RN 11/15/24 20:02: Witnessed waste Original Note: Propofol, fentanyl and versed gtts wasted. See MAR for amounts. Witnessed by CLARE Alonzo
--- NOTE | 2024-11-15 19:46 | PC.NURSE ---
Pt left facility, accompanied by [facility] crew.
--- NOTE | 2024-11-15 19:52 | PC.NURSE ---
Called [facility] updated CLARE Tineo
== END 2024-11-15 19:40 | disposition short-term general hospital (02) | DRG 208 ==
LOC: ER 11-15 00:39 → ICU 11-15 01:24
PROVIDERS: Student in an Organized Health Care Education/Training Program; Admitting Provider Student in an Organized Health Care Education/Training Program; Emergency Provider Family Medicine; PCP Family Medicine; Visit Provider Family Medicine
PROC: 0DJ08ZZ Inspection of Upper Intestinal Tract, Via Natural or Artificial Opening Endoscopic (ICD-10-PCS; principal; 2024-11-15 12:10)
DX: J96.01 Acute respiratory failure with hypoxia (principal); I21.4 Non-ST elevation (NSTEMI) myocardial infarction; I46.9 Cardiac arrest, cause unspecified; J69.0 Pneumonitis due to inhalation of food and vomit; K95.09 Other complications of gastric band procedure; E87.1 Hypo-osmolality and hyponatremia; G93.1 Anoxic brain damage, not elsewhere classified; N17.9 Acute kidney failure, unspecified; Y73.8 Miscellaneous gastroenterology and urology devices associated with adverse incidents, not elsewhere classified; E78.2 Mixed hyperlipidemia; E78.1 Pure hyperglyceridemia; E11.51 Type 2 diabetes mellitus with diabetic peripheral angiopathy without gangrene; I50.9 Heart failure, unspecified; I11.0 Hypertensive heart disease with heart failure; G47.33 Obstructive sleep apnea (adult) (pediatric); R13.10 Dysphagia, unspecified; R00.1 Bradycardia, unspecified; F32.9 Major depressive disorder, single episode, unspecified; M19.012 Primary osteoarthritis, left shoulder; M19.011 Primary osteoarthritis, right shoulder; I48.91 Unspecified atrial fibrillation; Z79.85 Long-term (current) use of injectable non-insulin antidiabetic drugs; Z79.84 Long term (current) use of oral hypoglycemic drugs; Z79.1 Long term (current) use of non-steroidal anti-inflammatories (NSAID); Z79.82 Long term (current) use of aspirin; Z87.01 Personal history of pneumonia (recurrent); Z87.440 Personal history of urinary (tract) infections; Z89.519 Acquired absence of unspecified leg below knee
CPT/HCPCS: 36415; 36416; 36573; 36592; 36600; 43235; 51702; 70450; 71045; 71275; 74176; 80051; 80053; 81001; 82330; 82550; 82803; 82805; 82962; 83605; 83880; 84145; 84443; 84484; 85025; 85049; 85730; 86140; 86403; 87040; 87070; 87205; 87449; 87637; 93005; 93306; 94003; 94640; 94799; 96365; 96366; 96367; 96372; 99291; 99292; C1751; J0360; J1265; J1644; J1815; J1938; J1953; J2250; J2470; J2543; J2704; J3010; J3372; J7030; J7626; J9999